=== PATIENT | female | born 1945 | race Caucasian/White ===

== ENCOUNTER → 2017-06-05 | Outpatient (CLI) | payer MEDICARE ==
[2017-06-05 16:19] LABS: Basophils # (A) 0.1 k/uL (0-0.2); Basophils % (A) 1 %; CH 31.4; CHCM 32.3; Eosinophils # (A) 0.1 k/uL (0-0.7); Eosinophils % (A) 1 %; HCT 51.5 % (34.0-46.0); HDW 2.32; HGB 16.9 gm/dL (11.4-16.0); Luc # (Auto) 0.23; Luc % (Auto) 2; Lymphocytes # (A) 3.1 k/uL (1.0-4.8); Lymphocytes % (A) 27 %; MCH 32.1 pg (25.0-35.0); MCHC 32.8 g/dL (31.0-37.0); MCV 97.9 fL (80.0-100.0); Mean Platelet Volume 7.7; Monocytes # (A) 0.6 k/uL (0-1.0); Monocytes % (A) 5 %; Neutrophils # (A) 7.5 k/uL (1.3-7.7); Neutrophils % (A) 65 %; RBC 5.26 m/uL (3.80-5.40); WBC 11.5 k/uL (3.8-10.6); WBC (Perox) 11.29
[2017-06-05 16:23] LABS: Calcium 10.3 mg/dL (8.4-10.2); Partial Thromboplastin Time 25.1 sec (22.0-30.0); Potassium 4.5 mmol/L (3.5-5.1); Prothrombin Time 10.5 sec (9.0-12.0)
== END | disposition home or self-care (01) ==
LOC: LABPAT 15:16
PROVIDERS: ATTEND Internal Medicine
DX: Z01.812 Encounter for preprocedural laboratory examination (principal)
CPT/HCPCS: 36415; 80048; 85025; 85610; 85730; 87070; 87086

== ENCOUNTER 2017-06-16 12:30 | Inpatient (IN) | payer MEDICARE ==
[2017-06-06 10:57] VITALS: BMI 49.4
--- NOTE | 2017-06-15 12:09 | HP ---
HISTORY AND PHYSICAL Surgery is 06/16/2017 Kat Pritchard is a 71-year-old patient seen with progressive right knee pain. After treatment options were discussed with her, she elected to proceed with right total knee arthroplasty. Consent was obtained. Medical clearance was provided by Dr. Frias. PAST MEDICAL HISTORY: Is gastroesophageal reflux disease. Osteoarthritis. PAST SURGICAL HISTORY: Is noncontributory. MEDICATIONS: Daily medications are: 1. Ibuprofen. 2. Losartan. 3. Prilosec. 4. Vitamins. ALLERGIES: None reported. SOCIAL HISTORY: Patient denies tobacco use. PHYSICAL EVALUATION: Right knee range of motion is -6/7 to 90 degrees. Tenderness is noted along the medial and lateral joint lines. There is positive medial and lateral Ronny's. There is crepitus medial patellofemoral and lateral compartments. Range of motion. Her ligaments are stable. Hip rotation is without pain. Distal neurovascular exam is intact. RADIOGRAPHS: Of the right knee reveals severe tricompartmental osteoarthritis. IMPRESSION: Right knee osteoarthritis. PLAN: Right total knee arthroplasty. Surgery is 06/16/2017. MMODL / IJN: [id number] /
[~2017-06-16 12:30] MED LIST: ACETAMINOPHEN TAB 500 MG TAB PO ONE; HYDROmorphone 0.5 MG/0.5 ML SYRINGE IVP PRN; LACTATED RINGERS 1,000 ML IV SCH; LIDOCAINE 1% 20 ML VIAL (10MG/ML) FOR IV START INTRADERMA PRN; MELOXICAM 7.5 MG TAB PO ONE; ONDANSETRON 4 MG/2 ML VIAL IVP ONE; TRANEXAMIC ACID 1,000 MG in SODIUM CHLORIDE 0.9% 100 ML IVPB ONE; ceFAZolin 3 GM in SODIUM CHLORIDE 0.9% 100 ML IVPB ONE; fentaNYL (PF) 50 MCG/ML 20 ML VIAL IVP PRN
[2017-06-16] MEDS: MIDAZOLAM 2 MG/2 ML VIAL IV PRN ×2 (14:08→14:38)
[2017-06-16] MEDS: fentaNYL (PF) 50 MCG/ML 2 ML AMP IV ONE ×2 (15:54→16:12)
[2017-06-16] MEDS ORDERED: ROPIVACAINE 246.25 MG, EPINEPHrine 0.5 MG, KETOROLAC 30 MG, cloNIDine HCL/PF 80 MCG, WA... MISCELLANE ONE ×5 (16:05)
[2017-06-16] MEDS ORDERED: GENTAMICIN IN NACL ISO-OSM PMX 80 MG in SALINE 1 100ML.BAG IVPB STA (16:06)
[2017-06-16] MEDS ORDERED: ePHEDrine SULFATE/0.9% NACL/PF 50 MG/5 ML SYRINGE IV ONE (16:32)
[2017-06-16] MEDS ORDERED: HYDROmorphone (PF) 1 MG/ML ONE (16:32)
[2017-06-16] MEDS ORDERED: GLYCOPYRROLATE 0.2 MG/ML 2 ML VIAL ONE (16:32)
[2017-06-16] MEDS ORDERED: PHENYLEPHRINE-0.9% NACL SYG 1 MG/10 ML SYRINGE ONE (16:32)
[2017-06-16] MEDS ORDERED: SODIUM CHLORIDE 0.9% 100 ML BAG ONE (16:32)
[2017-06-16] MEDS ORDERED: SUCCINYLCHOLINE CHLORIDE 100 MG/5 ML SYR IV ONE (16:32)
[2017-06-16] MEDS ORDERED: MIDAZOLAM 2 MG/2 ML VIAL ONE (16:32)
[2017-06-16] MEDS ORDERED: NEOSTIGMINE 1 MG/ML 10 ML VIAL ONE (16:32)
[2017-06-16] MEDS ORDERED: fentaNYL (PF) 50 MCG/ML 2 ML AMP ONE (16:32)
[2017-06-16] MEDS ORDERED: ROCURONIUM BROMIDE 10 MG/ML 10 ML VIAL IV ONE (16:32)
[2017-06-16] MEDS ORDERED: TRANEXAMIC ACID 1,000 MG/10 ML VIAL ONE (16:32)
[2017-06-16] MEDS ORDERED: LIDOCAINE 1% INJ 10MG/ML (20 ML MDV) ONE (16:32)
[2017-06-16] MEDS ORDERED: PROPOFOL 10 MG/ML 20 ML VIAL IV ONE (16:32)
[2017-06-16] MEDS ORDERED: ROPIVACAINE 1,100 MG, SODIUM CHLORIDE 0.9% 330 ML MISCELLANE PRN ×2 (17:04)
--- NOTE | 2017-06-16 17:05 | P.ONQ ---
Anesthesiology Proc Note - PNB - Peripheral Nerve Block Performed Right Adductor Canal Indication: Acute Post-Operative Pain, Requested by physician (Dr Ozuna) Sedation Type: Sedate with meaningful contact maintained Preparation: Sterile Dressing Position: Supine Catheter: Indwelling Needle Types: Other (see comment) (reji) Needle Size: 100mm (4") Needle Gauge: 18 Technique: Ultrasound Injectate: 0.5% Ropivacaine (see comment for volume) (20cc) Blood Aspirated: No Pain Paresthesia on Injection Noted: No Resistance on Injection: Normal Events: Uneventful and Well Tolerated
[2017-06-16] MEDS ORDERED: ceFAZolin 3,000 MG in SODIUM CHLORIDE 0.9% IRRIGATIO 3,000 ML IRRIGATION ONE (17:07)
[2017-06-16] MEDS ORDERED: LACTATED RINGERS 1,000 ML IV ONE (17:48)
[2017-06-16] MEDS ORDERED: HYDROcodone/APAP 7.5-325MG 1 EACH TAB PO PRN (18:43)
[2017-06-16] MEDS ORDERED: hydrOXYzine PAMOATE 25 MG CAP PO PRN (18:43)
[2017-06-16] MEDS ORDERED: NALOXONE 0.4 MG/ML 1 ML VIAL IV PRN (18:43)
[2017-06-16] MEDS ORDERED: HYDROmorphone 0.5 MG/0.5 ML SYRINGE IVP PRN ×3 (18:43)
[2017-06-16] MEDS ORDERED: ONDANSETRON 4 MG/2 ML VIAL IVP PRN (18:43)
--- NOTE | 2017-06-16 18:43 | P.OP ---
Date of Procedure: 06/16/17 Preoperative Diagnosis: Right knee osteoarthritis Postoperative Diagnosis: Right knee osteoarthritis Procedure(s) Performed: Right total knee arthroplasty Implants: 1. Zoe persona size 11 right cemented cruciate retaining femur 2. Zoe persona size E right cemented tibia 3. Zoe persona 10 mm medial congruent polyethylene tibial insert 4. Zoe persona 35 mm all polyethylene cemented patella Anesthesia: regional (Adductor canal catheter), local, spinal Surgeon: Theo Ozuna Aging Room Hand #1: Isaias Davila Estimated Blood Loss (ml): 100 Pathology: other (Bone) Condition: stable Disposition: PACU Indications for Procedure: 71-year-old patient seen with symptomatic right knee osteoarthritis. After treatment options were discussed, she elected to proceed with total knee arthroplasty. Operative Findings: See description of procedure Description of Procedure: Patient was taken to the operative suite after having a adductor canal catheter placed by the department of anesthesia. Patient underwent a spinal anesthetic by the department of anesthesia. Patient was given preoperative IV intake antibiotics and TXA. A well-padded tourniquet was placed about the [] lower extremity. The lower extremity was then prepped and draped in the normal sterile orthopedic fashion. The extremity was elevated, a tourniquet was insufflated to 350. A standard anterior incision was made sharply through skin. Dissection was taken down through the subcutaneous soft tissues down to the extensor mechanism. A medial arthrotomy was performed, patella was everted and knee was flexed. There was advanced osteoarthritis noted. A proximal tibial cutting guide was positioned. Proximal tibial cut was made. A distal intramedullary femoral cutting guide was positioned, distal femoral cut made. We placed the appropriate sizing guide and selected the appropriate size. A distal 4-in-1 femoral cutting block was positioned, distal femoral cuts were made. We now placed a trial femoral component into position, along with an appropriate size tibial tray and insert. We now took the knee through range of motion and had full extension good flexion and good overall soft tissue balance noted. The patella was everted and a flush cut made with patellar quad tendon. We templated the patella, appropriate drill holes were made. An appropriate trial patella was positioned, knee was taken through full range of motion with the patella tracking very nicely. The trial patella was removed. Drill holes were made through the femoral component. All trial components were removed after marking off the appropriate rotation of the tibia. Retractors were now positioned along the proximal tibia. An appropriate keel punch was made with the appropriate size tibial guide. At this point appropriate size implants were chosen and opened. The joint was irrigated copiously with pulse lavage mechanical irrigation. The deep soft tissues were infiltrated local analgesic. We mixed antibiotic methylmethacrylate. Once the methyl methacrylate was ready, the tibial component was cemented into place removing any excess methylmethacrylate. The femoral component was cemented into place removing the removing any excess methylmethacrylate. We then inserted the appropriate size polyethylene tibial insert. We made sure that it was locked into position. We took the knee into full extension, and then back in a flexion making sure we had removed any excess methylmethacrylate. The patellar component was then cemented down and secured with clamp. Excess methylmethacrylate removed. We kept the knee in full extension, patellar clamp in position until methylmethacrylate had hardened. Once it had hardened the patellar clamp was removed. The knee was taken through full range of motion. The patella tracked nicely. There was good soft tissue balancing. The tourniquet was now released. Additional hemostasis was achieved via electrocautery. A second gram of TXA was given. The wound was irrigated with pulse lavage mechanical irrigation. The extensor mechanism was repaired with Vicryl. We checked the repair with range of motion and it was stable. The subcutaneous soft tissues were repaired with Vicryl in layers. The skin was approximated with pernio/ Dermabond. Sterile dressings were applied followed by loose web roll and Boni bandage. The patient was transferred to a bed, and taken to recovery in stable and satisfactory condition. Samson WILLARD assisted with the procedure.
[2017-06-16] MEDS ORDERED: PROMETHAZINE INJ 25 MG/ML 1 ML VIAL IVPB ONE (19:01)
--- NOTE | 2017-06-16 19:41 | XR ---
PROCEDURE: XR knee limited RT DATE AND TIME: 06/16/2017 7:13 PM REFERRING PHYSICIAN: Theo Ozuna DO CLINICAL INDICATION: PHH, Evaluation for Postop abnormality and alignment TECHNIQUE: Department protocol. AP and crosstable lateral portable views. COMPARISON: None FINDINGS: TKR appears anatomic in position. Postprocedure soft tissue swelling noted. No unexpected r adiopaque foreign bodies. IMPRESSION: NO ACUTE PROCESS.
[2017-06-16] MEDS: LACTATED RINGERS 1,000 ML IV SCH (20:59)
[2017-06-16] MEDS: traMADol 50 MG TAB PO SCH (21:25)
[2017-06-16] MEDS: ENOXAPARIN 30 MG/0.3 ML SYRINGE SQ SCH (21:25)
[2017-06-16] MEDS: SENNOSIDES-DOCUSATE SODIUM 1 EACH TAB PO SCH (21:27)
[2017-06-16] MEDS: SULFAMETHOX-TMP 800-160MG 1 EACH TAB PO SCH (21:28)
[2017-06-16] MEDS: LOSARTAN-HCTZ 50-12.5 MG 1 EACH TAB PO SCH (22:23)
[2017-06-17] MEDS: ceFAZolin 3 GM in SODIUM CHLORIDE 0.9% 100 ML IVPB SCH ×2 (00:12→07:55)
[2017-06-17] MEDS: LACTATED RINGERS 1,000 ML IV SCH ×2 (06:16→14:11)
[2017-06-17] MEDS: HYDROcodone/APAP 7.5-325MG 1 EACH TAB PO PRN ×2 (06:16→16:11)
[2017-06-17] MEDS: PANTOPRAZOLE 40 MG TABLET PO SCH (06:17)
--- NOTE | 2017-06-17 06:24 | CONS ---
CONSULTATION DATE OF CONSULTATION: 06/16/17 REASON FOR CONSULTATION: Medical management requested by Dr. Ozuna. CONSULTATION: This is a pleasant 71-year-old patient of Dr. Frias. He has undergone a right total knee arthroplasty. Chronic stable medical conditions include GERD, hyperlipidemia, hypertension, osteoarthritis, sleep apnea, anxiety and depression. Denies any chest pain. No cardiac history. Did tolerate some liquid diet in the evening. REVIEW OF SYSTEMS: CONSTITUTIONAL: None. HEENT: Decreased hearing. RESPIRATORY: None. CARDIOVASCULAR: None. GASTROINTESTINAL: Heartburn. GENITOURINARY: None. MUSCULOSKELETAL: Pain in different joints. DERMATOLOGICAL: None. HEMATOLOGIC: None. LYMPHATIC: None. PSYCHIATRY: Anxiety and depression controlled. NEUROLOGICAL: None. PAST HISTORY: GERD, hard of hearing, hyperlipidemia, hypertension, osteoarthritis, obstructive sleep apnea, psoriasis, anxiety and depression. PAST SURGICAL HISTORY: Back surgery, tubal ligation, ORIF of the right arm, spinal fusion. SOCIAL HISTORY: No smoking. Alcohol occasional. Lives with a mother. FAMILY HISTORY: Cancer type unknown. HOME MEDICATIONS: Women's 50+ 1 tab p.o. daily, Hyzaar 50/12.5 one tablet p.o. daily, Aleve 440 mg p.o. b.i.d. p.r.n., Effexor XR 150 mg p.o. daily, omeprazole 20 mg p.o. daily. ALLERGIES: None. PHYSICAL EXAMINATION: Temperature 97.6, pulse 110, respiration 16, blood pressure 176/84, pulse ox 94% on room air. GENERAL APPEARANCE: Well built, BMI of 49.4, lying in bed, comfortable. EYES: Pupils equal. Conjunctivae normal. HEENT: Oral cavity normal. NECK: JVD unable to assess. Mass not palpable. RESPIRATORY: Effort normal, slightly distant breath sounds. CARDIOVASCULAR: Heart sounds muffled. No edema. ABDOMEN: Soft, nontender. Liver and spleen not palpable. LYMPHATIC: No lymph node palpable in neck or axillae. PSYCHIATRY: Alert and oriented x3. Mood and affect normal. EXTREMITIES: Right knee in a dressing. INVESTIGATIONS: Blood work from 06/05/17 shows white count 11.5, hemoglobin 16.9, potassium 4.5, BUN 20, creatinine 1.10. ASSESSMENT: 1. Right total knee arthroplasty. 2. Morbid obesity. BMI 49.4. 3. Gastroesophageal reflux disease. 4. Mild hard of hearing. 5. Hyperlipidemia. 6. Essential hypertension. 7. Primary osteoarthritis. 8. Obstructive sleep apnea. Uses CPAP machine. 9. Anxiety, depression, not otherwise specified. 10.Chronic psoriasis. PLAN: Home medications will be resumed. The patient is on Lovenox for DVT prophylaxis. Care was discussed with the patient. Questions were answered. The patient use should see a dietitian for weight loss measures. Thank you, Dr. Ozuna. ALY / PRINCE: [id number] /
[2017-06-17] MEDS: LOSARTAN-HCTZ 50-12.5 MG 1 EACH TAB PO SCH (07:59)
[2017-06-17] MEDS: traMADol 50 MG TAB PO SCH ×4 (07:59→22:51)
[2017-06-17] MEDS: FAMOTIDINE 20 MG TAB PO SCH (07:59)
[2017-06-17] MEDS: ENOXAPARIN 30 MG/0.3 ML SYRINGE SQ SCH ×2 (07:59→21:23)
[2017-06-17 08:00] LABS: Basophils % (A) 0 %; CH 31.4; CHCM 32.7; Eosinophils % (A) 0 %; HCT 41.1 % (34.0-46.0); HDW 2.34; Luc # (Auto) 0.16; Luc % (Auto) 2; Lymphocytes # (A) 1.7 k/uL (1.0-4.8); Lymphocytes % (A) 16 %; MCH 31.4 pg (25.0-35.0); MCHC 32.5 g/dL (31.0-37.0); MCV 96.5 fL (80.0-100.0); Mean Platelet Volume 7.4; Monocytes # (A) 0.6 k/uL (0-1.0); Monocytes % (A) 5 %; Neutrophils # (A) 8.4 k/uL (1.3-7.7); Neutrophils % (A) 77 %; RBC 4.25 m/uL (3.80-5.40); RDW 12.8 % (11.5-15.5); WBC 10.9 k/uL (3.8-10.6); WBC (Perox) 10.97
[2017-06-17] MEDS: VENLAFAXINE HCL ER 150 MG CAP PO SCH (08:00)
[2017-06-17] MEDS: MELOXICAM 7.5 MG TAB PO SCH (08:00)
[2017-06-17] MEDS: SULFAMETHOX-TMP 800-160MG 1 EACH TAB PO SCH ×2 (08:00→21:23)
[2017-06-17 08:04] LABS: Anion Gap 11 mmol/L; Blood Urea Nitrogen 22 mg/dL (7-17); Calcium 8.6 mg/dL (8.4-10.2); Carbon Dioxide 22 mmol/L (22-30); Chloride 102 mmol/L (98-107); Glucose 113 mg/dL (74-99); Non-African American GFR(MDRD) >60 (>60 ml/min/1.73 sqM); Potassium 4.3 mmol/L (3.5-5.1); Sodium 135 mmol/L (137-145)
--- NOTE | 2017-06-17 08:05 | P.PN ---
Progress Note - Text The patient is status post right adductor canal catheter placement. The catheter was placed for postoperative pain control, status post total right arthroplasty. Ropivacaine 0.2% is infusing at 8 mLs per hour. The patient has no complaints of right lower extremity numbness or weakness. Patient's VAS score is2-10. Assessment: Patient's adductor canal catheter is in place and working appropriately. Plan: continue infusion and adjust it as needed.
[2017-06-17 08:09] LABS: HGB 13.3 gm/dL (11.4-16.0)
[2017-06-17] MEDS ORDERED: LOSARTAN-HCTZ 50-12.5 MG 1 EACH TAB PO SCH (09:00)
--- NOTE | 2017-06-17 11:21 | PN ---
PROGRESS NOTE DATE OF SERVICE: 06/17/2017 PRESENTING COMPLAINT: Right knee surgery. INTERVAL HISTORY: Patient is status post right knee surgery, doing fine. No chest pain or shortness of breath. Did tolerate her breakfast. Has been out of bed. REVIEW OF SYSTEMS: Done for constitutional, cardiovascular, GI, pulmonary, musculoskeletal; relevant findings as above. CURRENT MEDICATIONS: Reviewed. EXAMINATION: Temperature 98.3 pulse 83, respirations 14, blood pressure 111/66, pulse ox 95% on room air. GENERAL APPEARANCE: Lying in bed, comfortable. EYES: Pupils equal. Conjunctivae normal. NECK: JVD not raised. Mass not palpable. RESPIRATORY: Effort normal. Lungs are clear. CARDIOVASCULAR: 1st and 2nd sounds normal. CARDIOVASCULAR: Heart sounds are muffled. No edema. ABDOMEN: Soft, nontender. Liver and spleen not palpable. EXTREMITIES: Dressing over the right knee. INVESTIGATIONS: White count 10.9, hemoglobin 13.3. Potassium 4.3. ASSESSMENT: 1. Right total knee arthroplasty. 2. Morbid obesity. Body mass index of 49.4. 3. Gastroesophageal reflux disease. 4. Mild hard of hearing. 5. Hyperlipidemia. 6. Essential hypertension. 7. Primary osteoarthritis. 8. Obstructive sleep apnea. Uses a continuous positive airway pressure machine. 9. Anxiety and depression, not otherwise specified. 10.Chronic psoriasis. PLAN: Patient doing well. Slight leukocytosis; clinically, no evidence of infection. Incision is healing well per Orthopedics. Care was discussed with the patient. Questions were answered. Thank you, Dr. Ozuna. ALY / VERONICAN: [id number] /
--- NOTE | 2017-06-17 13:53 | P.PN ---
Subjective Progress Note Date: 06/17/17 Principal diagnosis: Status post right total knee arthroplasty Patient seen today resting in her hospital bed, she appears comfortable. She is done well with therapy, urinary catheters been discontinued. She denies any headaches, lightheadedness, chest pain, shortness of breath, fever chills. Objective - Vital Signs Vital signs: Vital Signs Temp 98.3 F 06/17/17 06:59 Pulse 83 06/17/17 06:59 Resp 16 06/17/17 12:24 BP 111/66 06/17/17 06:59 Pulse Ox 95 06/17/17 06:59 Intake & Output 06/16/17 06/17/17 06/17/17 18:59 06:59 18:59 Intake Total 1601 1450 Output Total 250 550 Balance 1351 900 Weight 122.47 kg 122.47 kg Intake: IV 1601 150 Intake, IV Titration 900 Amount Lactated Ringers 1,000 ml 900 @ 100 mls/hr IV .Q10H [facility] Rx#:[id number] Oral 400 Output: Urine 150 550 Estimated Blood Loss 100 Other: Voiding Method Indwelling Catheter - Exam Right lower extremity: The incision is clean, dry, and intact. Minimal soft tissue swelling present around the knee. Calf is soft, no tenderness with palpation. Plantar flexion, dorsiflexion, EHL, FHL are intact. Sensory exam to light touch throughout the extremity is intact. Dorsal pedis pulses 2+. - Labs CBC & Chem 7: 06/17/17 07:13 06/17/17 07:13 Labs: Abnormal Lab Results - Last 24 Hours (Table) 06/17/17 06/17/17 Range/Units 07:13 07:13 WBC 10.9 H (3.8-10.6) k/uL Neutrophils # 8.4 H (1.3-7.7) k/uL Sodium 135 L (137-145) mmol/L BUN 22 H (7-17) mg/dL Glucose 113 H (74-99) mg/dL Assessment and Plan Plan: Assessment: #1. Postop day #1 status post right total knee arthroplasty Plan: 1. Pain control, continue use of oral medication 2. Continue work with physical therapy 3. Daily dressing changes/ice and elevate 4. GI and DVT prophylaxis, continue subcu medication 5. Medical recommendations 6. Discharge planning: Patient will likely be discharged home tomorrow Time with Patient: Less than 30
[2017-06-17] MEDS: SENNOSIDES-DOCUSATE SODIUM 1 EACH TAB PO SCH (21:23)
[2017-06-18] MEDS: HYDROcodone/APAP 7.5-325MG 1 EACH TAB PO PRN ×3 (01:17→13:26)
[2017-06-18] MEDS: LACTATED RINGERS 1,000 ML IV SCH (02:34)
[2017-06-18 07:27] LABS: Anion Gap 10 mmol/L; Blood Urea Nitrogen 15 mg/dL (7-17); Calcium 8.8 mg/dL (8.4-10.2); Carbon Dioxide 24 mmol/L (22-30); Chloride 101 mmol/L (98-107); Glucose 113 mg/dL (74-99); Non-African American GFR(MDRD) 59 (>60 ml/min/1.73 sqM); Sodium 135 mmol/L (137-145)
[2017-06-18] MEDS: ENOXAPARIN 30 MG/0.3 ML SYRINGE SQ SCH (08:24)
[2017-06-18] MEDS: MELOXICAM 7.5 MG TAB PO SCH (08:25)
[2017-06-18] MEDS: PANTOPRAZOLE 40 MG TABLET PO SCH (08:25)
[2017-06-18] MEDS: FAMOTIDINE 20 MG TAB PO SCH ×2 (08:25→09:28)
[2017-06-18] MEDS: LOSARTAN-HCTZ 50-12.5 MG 1 EACH TAB PO SCH (08:25)
[2017-06-18] MEDS: SULFAMETHOX-TMP 800-160MG 1 EACH TAB PO SCH (08:25)
[2017-06-18 08:37] VITALS: RESP 18
[2017-06-18] MEDS: VENLAFAXINE HCL ER 150 MG CAP PO SCH (09:28)
[2017-06-18] MEDS: traMADol 50 MG TAB PO SCH (09:29)
[2017-06-18] MEDS ORDERED: MAGNESIUM HYDROXIDE 2,400 MG/10 ML CUP PO PRN (09:58)
[2017-06-18 09:59] VITALS: BP 118/69; PULSE 94; TEMP 98.1
--- NOTE | 2017-06-18 11:10 | P.PN ---
Subjective Progress Note Date: 06/18/17 Principal diagnosis: Status post right total knee arthroplasty Patient seen today resting in her hospital bed, she appears comfortable. She denies any headaches, lightheadedness, chest pain, shortness of breath, fever chills. Objective - Vital Signs Vital signs: Vital Signs Temp 98.1 F 06/18/17 07:00 Pulse 65 06/18/17 08:25 Resp 18 06/18/17 08:25 BP 118/69 06/18/17 07:00 Pulse Ox 94 L 06/18/17 07:00 Intake & Output 06/17/17 06/18/17 06/18/17 18:59 06:59 18:59 Intake Total 300 2350 Output Total 500 Balance -200 2350 Weight 122.47 kg Intake: Intake, IV Titration 300 Amount Lactated Ringers 1,000 ml 200 @ 100 mls/hr IV .Q10H [facility] Rx#:[id number] ceFAZolin 3 gm In Sodium 100 Chloride 0.9% 100 ml @ 100 mls/hr IVPB Q8HR [facility] Rx#:[id number] Oral 2350 Output: Urine 500 Other: Voiding Method Toilet # Voids 3 - Exam Right lower extremity: The incision is clean, dry, and intact. Minimal soft tissue swelling present around the knee. Calf is soft, no tenderness with palpation. Plantar flexion, dorsiflexion, EHL, FHL are intact. Sensory exam to light touch throughout the extremity is intact. Dorsal pedis pulses 2+. - Labs CBC & Chem 7: 06/17/17 07:13 06/18/17 06:48 Labs: Abnormal Lab Results - Last 24 Hours (Table) 06/18/17 Range/Units 06:48 Sodium 135 L (137-145) mmol/L Glucose 113 H (74-99) mg/dL Assessment and Plan Plan: Assessment: 1. Postop day #2 status post right total knee arthroplasty Plan: 1. Pain control, continue use of oral medication 2. Continue work with physical therapy 3. Daily dressing changes/ice and elevate 4. GI and DVT prophylaxis, discharge home on aspirin 325 mg twice a day 5. Medical recommendations 6. Discharge planning: Patient will be discharged home today Time with Patient: Less than 30
--- NOTE | 2017-06-18 11:11 | P.DS ---
Providers Date of admission: 06/16/17 13:02 Expected date of discharge: 06/18/17 Attending physician: Theo Ozuna Consults: 06/16/17 18:43 Consult Physician Routine Consulting Provider: Wei Garvin Consult Reason/Comments: Medical management Do you want consulting provider notified?: Yes Primary care physician: [facility] Course: Date of admission: 06/16/2017 Date of discharge: 06/18/2017 Admission diagnosis: Status post right total knee arthroplasty Discharge diagnosis: Same Attending physician: Dr. Ozuna Surgical procedures: Right total knee arthroplasty Brief history: Patient is a 71-year-old female with a history of with progressive primary right knee osteoarthritis. At this point patient has failed conservative treatment measures and has opted to proceed with a elective right total knee arthroplasty. Hospital course: Details of patient's surgery can be found in operative report. Patient tolerated the procedure well and was subsequently transported to orthopedic floor. Patient's orthopeidc and medical care was provided daily. Patient had daily laboratory tests performed for evaluation of overall blood counts. Patient had daily physical therapy to include strengthening range of motion as well as education with walker ambulation. Patient had daily CPM usage as part of their physical therapy program. Patient was treated with Lovenox for their postoperative DVT prophylaxis during their inpatient stay. Patient was noted to have a relatively uneventful postoperative course. Patient reported satisfactory pain control with oral pain medications by postoperative day 0. Patient showed satisfactory progress with physical therapy. Patient moved steadily through the program and had no difficulty meeting the goals by postoperative day 2. Given patient's otherwise satisfactory course and having met physical therapy goals, plan is to discharge patient home on postoperative day 2. Discharge condition/disposition: Patient will be discharged home in stable condition. Discharge medications: Instructions are given on resumption of patient's normal daily medications per primary care recommendation, in addition patient will be prescribed Burt 7.5 mg/325 mg, tramadol 50 mg, aspirin 325 mg, Bactrim DS. Discharge instructions: 1. Wound care and infection precautions, keep incision dry and covered while showering, no lotions, creams, moisturizers. No soaking, tubs, pools, hottubs. Do not scrub over the incision. 2. Weight-bear as tolerated with walker / cane until follow-up. 3. Ice and elevate when necessary. Do not exceed 20 minutes per hour with ice pack. 4. Utilize compression sleeve until seen at first follow up appointment. 5. Visiting nursing care. 6. Home physical therapy including home CPM. 7. Pain meds and anticoagulants per prescription. 8. Pain medication has potential to cause constipation. Increase oral fluid and fiber intake. Contact primary care provider if you have not had a bowel movement within 48 hours after discharge 9. No anti-inflammatory medication until discussed at first post operative visit, this including Motrin, Aleve, Mobic, Diclofenac. 10. Follow up in office at 2 weeks postop with Samson Davila PA-C 11. Follow up with your primary care doctor 7-10 days after discharge. 12. Contact [facility] with any questions, . Procedures: Right total knee arthroplasty Patient Condition at Discharge: Good Plan - Discharge Summary New Discharge Prescriptions: New Aspirin 325 mg PO BID #60 tab HYDROcodone/APAP 7.5-325MG [Burt 7.5] 1 - 2 each PO Q6HR PRN #60 tab PRN Reason: Pain Sulfamethox-Tmp 800-160Mg [Bactrim DS 800-160 mg] 1 tab PO Q12HR #20 tab traMADol HCl [Ultram] 50 mg PO Q6H PRN #40 tab PRN Reason: Pain No Action Omeprazole 20 mg PO DAILY Losartan-Hctz 50-12.5 mg [Hyzaar 50-12.5] 1 tab PO DAILY Venlafaxine HCl [Effexor XR] 150 mg PO DAILY Multivit/Folic Acid/Vit K1 [One-A-Day Women's 50 Plus Tab] 1 tab PO DAILY Discharge Medication List Losartan-Hctz 50-12.5 mg [Hyzaar 50-12.5] 1 tab PO DAILY 12/05/15 [History] Omeprazole 20 mg PO DAILY 12/05/15 [History] Multivit/Folic Acid/Vit K1 [One-A-Day Women's 50 Plus Tab] 1 tab PO DAILY [History] Venlafaxine HCl [Effexor XR] 150 mg PO DAILY 06/06/17 [History] Aspirin 325 mg PO BID #60 tab 06/18/17 [Rx] HYDROcodone/APAP 7.5-325MG [Burt 7.5] 1 - 2 each PO Q6HR PRN #60 tab 06/18/17 [ Rx] Sulfamethox-Tmp 800-160Mg [Bactrim DS 800-160 mg] 1 tab PO Q12HR #20 tab [Rx] traMADol HCl [Ultram] 50 mg PO Q6H PRN #40 tab 06/18/17 [Rx] Follow up Appointment(s)/Referral(s): [facility], [NON-STAFF] - Isaias Davila PAC [PHYSICIAN ENVIRONMENTAL FIELD TEAM MEMBER] - 2 Weeks Ambulatory/Diagnostic Orders: Basic Metabolic Panel [LAB.AMB] Location: Determined By Patient Activity/Diet/Wound Care/Special Instructions: CPM set up by Dr. Ozuna office, through [facility] [phone] Orthopedic Discharge Instructions: 1. Wound care and infection precautions, keep incision dry and covered while showering, no lotions, creams, moisturizers. No soaking, pools, hot tubs. Do not scrub over incision. 2. Weight-bear as tolerated with walker / cane until follow-up. 3. Ice and elevate when necessary. Do not exceed 20 minutes per hour with ice pack. 4. Utilize compression sleeve until seen at first follow up appointment. 5. Visiting nursing care. 6. Home physical therapy including home CPM. 7. Pain meds and anticoagulants per prescription. 8. Pain medication has potential to cause constipation. Increase oral fluid and fiber intake. Contact primary care provider if you have not had a bowel movement within 48 hours after discharge. 9. No anti-inflammatory medication until discussed at first post operative visit, this including Motrin, Aleve, Mobic, Diclofenac 10. Follow up in office at 2 weeks postop with Samson Davila PA-C 11. Follow up with your primary care doctor 7-10 days after discharge. 12. Contact [facility] with any questions, . Discharge Disposition: HOME WITH HOME HEALTH SERVICES
--- NOTE | 2017-06-18 12:28 | PN ---
PROGRESS NOTE DATE OF SERVICE: 06/18/2017 PRESENTING COMPLAINT: Right knee surgery. INTERVAL HISTORY: Patient is status post right knee surgery. Some pain in the knee is present. Sitting up in a chair, comfortable, did have a breakfast. Did work with physical therapy. No new issues. REVIEW OF SYSTEMS: Done for constitutional, cardiovascular, GI, pulmonary, musculoskeletal; relevant findings as above. CURRENT MEDICATIONS: Reviewed. On Lovenox for DVT prophylaxis. PHYSICAL EXAMINATION: Temperature 98.1, pulse 94, respirations 18, blood pressure 108/69, pulse of 94% on room air. GENERAL APPEARANCE: Sitting up on a chair, comfortable. EYES: Pupils equal, conjunctivae normal. NECK: JVD not raised. Mass not palpable. Respiratory effort normal. Lungs are clear. CARDIOVASCULAR: First and second sounds normal. No edema. ABDOMEN: Soft, nontender. Liver and spleen not palpable. CARDIOVASCULAR: Heart sounds are muffled. No edema. EXTREMITIES: Dressing over the right knee. INVESTIGATIONS: Potassium 4, BUN and creatinine are normal. ASSESSMENT: 1. Right total knee arthroplasty. 2. Morbid obesity, body mass index of 49.4. 3. Gastroesophageal reflux disease. 4. Mild hard of hearing. 5. Hyperlipidemia. 6. Essential hypertension. 7. Primary osteoarthritis. 8. Obstructive sleep apnea. Uses a CPAP machine. 9. Anxiety, depression, not otherwise specified. 10.Chronic psoriasis. PLAN: Stable. Continue on current medication and treatment plan. Care was discussed with the patient. Thank you, Dr. Ozuna. MMSUSANL / VERONICAN: [id number] /
--- NOTE | 2017-06-18 13:34 | P.PN ---
Progress Note - Text 1314 anesthesia POD 2. Patient is status post right TKR under spinal anesthesia with a right adductor canal catheter placed for postoperative pain relief. With ropivacaine 0.2% running at 8 mL per hour the patient reports a VAS of 3, 5 over the anterior aspect of the operative knee. Catheter site is clean dry and the dressing is intact.
== END 2017-06-18 14:21 | disposition home health service (06) | DRG 470 ==
LOC: 2ORMAIN 13:02 → 3SUR 19:08
PROVIDERS: ADMIT Orthopaedic Surgery; ATTEND Orthopaedic Surgery
PROC: 0SRC0J9 Replacement of Right Knee Joint with Synthetic Substitute, Cemented, Open Approach (ICD-10-PCS; principal; 2017-06-16 15:35)
DX: M17.11 Unilateral primary osteoarthritis, right knee (principal); Z68.42 Body mass index [BMI] 45.0-49.9, adult; I10 Essential (primary) hypertension; E66.01 Morbid (severe) obesity due to excess calories; E78.5 Hyperlipidemia, unspecified; G47.33 Obstructive sleep apnea (adult) (pediatric); H91.90 Unspecified hearing loss, unspecified ear; K21.9 Gastro-esophageal reflux disease without esophagitis; L40.9 Psoriasis, unspecified; Z79.899 Other long term (current) drug therapy; Z98.1 Arthrodesis status; F32.9 Major depressive disorder, single episode, unspecified; F41.9 Anxiety disorder, unspecified; Z79.1 Long term (current) use of non-steroidal anti-inflammatories (NSAID)
CPT/HCPCS: 80048; 85025; 88300

== ENCOUNTER 2017-06-23 14:57 | Observation (INO) | payer MEDICARE ==
[2017-06-23] MEDS ORDERED: RX INFO: IV CONTRAST WAS GIVEN 1 EACH MISC MISCELLANE PRN (15:30)
--- NOTE | 2017-06-23 15:39 | ED ---
General Adult HPI - General Source: patient, RN notes reviewed Mode of arrival: wheelchair Limitations: no limitations <Mark Rizzo - Last Filed: 06/23/17 16:39> <Clifford Almeida - Last Filed: 06/23/17 18:09> - General Chief complaint: Arrhythmia/Palpitations Stated complaint: Dr Santos Time Seen by Provider: 06/23/17 15:21 - History of Present Illness Initial comments: Patient is a pleasant 71-year-old female presenting to the emergency department tachycardia. Patient did have right knee surgery done 1 week ago. Patient has noticed palpitations in the past few days. Patient has dyspnea only with exertion. Patient states her right knee is doing well without significant pain or swelling. (Makr Rizzo) - Related Data Home Medications Medication Instructions Recorded Confirmed Losartan-Hctz 50-12.5 mg [Hyzaar 1 tab PO DAILY 12/05/15 06/23/17 50-12.5] Omeprazole 20 mg PO DAILY 12/05/15 06/23/17 Multivit/Folic Acid/Vit K1 1 tab PO DAILY 06/06/17 06/23/17 [One-A-Day Women's 50 Plus Tab] Venlafaxine HCl [Effexor XR] 150 mg PO DAILY 06/06/17 06/23/17 HYDROcodone/APAP 7.5-325MG [[place] 1 - 2 tab PO Q6HR PRN 06/23/17 06/23/17 7.5] Previous Rx's Medication Instructions Recorded Aspirin 325 mg PO BID #60 tab 06/18/17 Sulfamethox-Tmp 800-160Mg [Bactrim 1 tab PO Q12HR #20 tab 06/18/17 DS 800-160 mg] traMADol HCl [Ultram] 50 mg PO Q6H PRN #40 tab 06/18/17 Allergies Allergy/AdvReac Type Severity Reaction Status Date / Time No Known Allergies Allergy Verified 06/23/17 16:28 Review of Systems ROS Other: All systems not noted in ROS Statement are negative. Constitutional: Denies: fever Eyes: Denies: eye pain ENT: Denies: ear pain Respiratory: Reports: dyspnea (With exertion) Cardiovascular: Reports: palpitations. Denies: chest pain Endocrine: Denies: fatigue Gastrointestinal: Denies: abdominal pain Genitourinary: Denies: dysuria Musculoskeletal: Denies: back pain Skin: Denies: rash Neurological: Denies: weakness <Mark Rizzo - Last Filed: 06/23/17 16:39> ROS Other: All systems not noted in ROS Statement are negative. <Clifford Almeida Megan - Last Filed: 06/23/17 18:09> ROS Statement: Those systems with pertinent positive or pertinent negative responses have been documented in the HPI. Past Medical History Past Medical History: GERD/Reflux, Hearing Disorder / Deafness, Hyperlipidemia, Hypertension, Osteoarthritis (OA), Skin Disorder, Sleep Apnea/CPAP/BIPAP Additional Past Medical History / Comment(s): Psoriasis. USES CPAP. VARICOSE VEINS. History of Any Multi-Drug Resistant Organisms: None Reported Past Surgical History: Back Surgery, Orthopedic Surgery, Tubal Ligation Additional Past Surgical History / Comment(s): ORIF RT Arm; PLATE REMOVED. LUH KNEE SCOPES. SPINAL FUSION., right knee replacement, fusion L1/L2 Past Anesthesia/Blood Transfusion Reactions: Family History of Problems w/ Anesthesia, Motion Sickness, Postoperative Nausea & Vomiting (PONV) Additional Past Anesthesia/Blood Transfusion Reaction / Comment(s): SISTER WAS ON VENTILATOR AFTER SURGERY, SHE ALSO HAD LUPUS. Past Psychological History: Anxiety, Depression Smoking Status: Never smoker Past Alcohol Use History: None Reported Past Drug Use History: None Reported - Past Family History Brother(s) Family Medical History: Cancer <Mark Rizzo - Last Filed: 06/23/17 16:39> General Exam Limitations: no limitations General appearance: alert, in no apparent distress Head exam: Present: atraumatic Eye exam: Present: normal appearance, PERRL ENT exam: Present: normal oropharynx Respiratory exam: Present: normal lung sounds bilaterally Cardiovascular Exam: Present: normal rhythm, tachycardia Expanded Peripheral pulses: 2+: Radial (R), Radial (L), Dorsalis Pedis (R), Dorsalis Pedis (L) GI/Abdominal exam: Present: soft. Absent: tenderness Extremities exam: Present: other (Right knee consistent with recent postsurgical changes). Absent: calf tenderness Neurological exam: Present: alert Psychiatric exam: Present: normal affect, normal mood Skin exam: Present: normal color <Mark Rizzo - Last Filed: 06/23/17 16:39> Vital Signs 06/23/17 06/23/17 15:06 16:21 Temperature 99.4 F Pulse Rate 152 H 94 Respiratory 24 18 Rate Blood Pressure 130/64 127/69 O2 Sat by Pulse 94 L 93 L Oximetry EKG Findings - EKG Comments: EKG Findings:: Sinus tachycardia 136. IL 1:30. QRS 76. QT 276. QTc 4:15. Normal axis. Normal QRS. Flattened T waves. <Mark Rizzo - Last Filed: 06/23/17 16:39> Medical Decision Making - Lab Data Result diagrams: 06/23/17 15:40 06/23/17 15:40 <Mark Rizzo - Last Filed: 06/23/17 16:39> - Lab Data Result diagrams: 06/23/17 15:40 06/23/17 15:40 <Clifford Almeida - Last Filed: 06/23/17 18:09> - Medical Decision Making Case was discussed with Dr. townsend, who will admit for Dr. Poe. (Mark Rizzo ) 71-year-old female presenting with tachycardia, palpitations and mild shortness of breath. Patient was noted to be tachycardic, EKG showed sinus tachycardia. Case was signed out pending laboratory studies and CT angiography with concern for PE given her recent knee surgery. CT angiography was obtained, this was negative for pulmonary embolus. Patient's rate normalized without intervention. Patient states she had a heart rate up into the 160s. Patient will be placed in observation for continued telemetry, cardiology evaluation. ( Clifford Almeida) - Lab Data Lab Results 06/23/17 06/23/17 06/23/17 Range/Units 15:40 15:40 15:40 WBC 7.7 (3.8-10.6) k/uL RBC 4.00 (3.80-5.40) m/uL Hgb 12.5 (11.4-16.0) gm/dL Hct 37.5 (34.0-46.0) % MCV 93.8 (80.0-100.0) fL MCH 31.2 (25.0-35.0) pg MCHC 33.2 (31.0-37.0) g/dL RDW 13.0 (11.5-15.5) % Plt Count 273 (150-450) k/uL Neutrophils % 74 % Lymphocytes % 16 % Monocytes % 5 % Eosinophils % 2 % Basophils % 1 % Neutrophils # 5.7 (1.3-7.7) k/uL Lymphocytes # 1.2 (1.0-4.8) k/uL Monocytes # 0.4 (0-1.0) k/uL Eosinophils # 0.2 (0-0.7) k/uL Basophils # 0.0 (0-0.2) k/uL PT (9.0-12.0) sec INR (<1.2) APTT (22.0-30.0) sec Sodium 133 L (137-145) mmol/L Potassium 4.3 (3.5-5.1) mmol/L Chloride 98 (98-107) mmol/L Carbon Dioxide 25 (22-30) mmol/L Anion Gap 10 mmol/L BUN 16 (7-17) mg/dL Creatinine 0.90 (0.52-1.04) mg/dL Est GFR (MDRD) Af Amer >60 (>60 ml/min/1.73 sqM) Est GFR (MDRD) Non-Af >60 (>60 ml/min/1.73 sqM) Glucose 105 H (74-99) mg/dL Calcium 9.1 (8.4-10.2) mg/dL Magnesium 2.0 (1.6-2.3) mg/dL Total Bilirubin 0.8 (0.2-1.3) mg/dL AST 38 H (14-36) U/L ALT 35 (9-52) U/L Alkaline Phosphatase 117 (38-126) U/L Total Creatine Kinase 110 (30-135) U/L CK-MB (CK-2) 1.0 (0.0-2.4) ng/mL CK-MB (CK-2) Rel Index 0.9 Troponin I <0.012 (0.000-0.034) ng/mL Total Protein 7.2 (6.3-8.2) g/dL Albumin 3.9 (3.5-5.0) g/dL TSH 2.210 (0.465-4.680) mIU/L Free T4 1.21 (0.78-2.19) ng/dL Free T3 pg/mL 3.1 (2.8-5.3) pg/ml 06/23/17 Range/Units 15:40 WBC (3.8-10.6) k/uL RBC (3.80-5.40) m/uL Hgb (11.4-16.0) gm/dL Hct (34.0-46.0) % MCV (80.0-100.0) fL MCH (25.0-35.0) pg MCHC (31.0-37.0) g/dL RDW (11.5-15.5) % Plt Count (150-450) k/uL Neutrophils % % Lymphocytes % % Monocytes % % Eosinophils % % Basophils % % Neutrophils # (1.3-7.7) k/uL Lymphocytes # (1.0-4.8) k/uL Monocytes # (0-1.0) k/uL Eosinophils # (0-0.7) k/uL Basophils # (0-0.2) k/uL PT 9.9 (9.0-12.0) sec INR 1.0 (<1.2) APTT 24.0 (22.0-30.0) sec Sodium (137-145) mmol/L Potassium (3.5-5.1) mmol/L Chloride (98-107) mmol/L Carbon Dioxide (22-30) mmol/L Anion Gap mmol/L BUN (7-17) mg/dL Creatinine (0.52-1.04) mg/dL Est GFR (MDRD) Af Amer (>60 ml/min/1.73 sqM) Est GFR (MDRD) Non-Af (>60 ml/min/1.73 sqM) Glucose (74-99) mg/dL Calcium (8.4-10.2) mg/dL Magnesium (1.6-2.3) mg/dL Total Bilirubin (0.2-1.3) mg/dL AST (14-36) U/L ALT (9-52) U/L Alkaline Phosphatase (38-126) U/L Total Creatine Kinase (30-135) U/L CK-MB (CK-2) (0.0-2.4) ng/mL CK-MB (CK-2) Rel Index Troponin I (0.000-0.034) ng/mL Total Protein (6.3-8.2) g/dL Albumin (3.5-5.0) g/dL TSH (0.465-4.680) mIU/L Free T4 (0.78-2.19) ng/dL Free T3 pg/mL (2.8-5.3) pg/ml Disposition <Mark Rizzo - Last Filed: 06/23/17 16:39> Decision to Admit Reason: Admit from EC Decision Date: 06/23/17 Decision Time: 18:09 <Clifford Almeida - Last Filed: 06/23/17 18:09> Clinical Impression: Sinus tachycardia Disposition: ADMITTED IP TO THIS HOSP Condition: Stable Referrals: Doni Frias MD [Primary Care Provider] - 1-2 days
[2017-06-23 16:05] LABS: Basophils % (A) 1 %; CH 31.4; CHCM 33.7; Eosinophils # (A) 0.2 k/uL (0-0.7); Eosinophils % (A) 2 %; HCT 37.5 % (34.0-46.0); HDW 2.49; HGB 12.5 gm/dL (11.4-16.0); Luc # (Auto) 0.18; Luc % (Auto) 2; Lymphocytes # (A) 1.2 k/uL (1.0-4.8); Lymphocytes % (A) 16 %; MCH 31.2 pg (25.0-35.0); MCHC 33.2 g/dL (31.0-37.0); MCV 93.8 fL (80.0-100.0); Mean Platelet Volume 7.4; Monocytes # (A) 0.4 k/uL (0-1.0); Monocytes % (A) 5 %; Neutrophils # (A) 5.7 k/uL (1.3-7.7); Neutrophils % (A) 74 %; WBC 7.7 k/uL (3.8-10.6); WBC (Perox) 7.69
[2017-06-23 16:09] LABS: Prothrombin Time 9.9 sec (9.0-12.0)
[2017-06-23 16:13] LABS: ALT 35 U/L (9-52); AST 38 U/L (14-36); Alkaline Phosphatase 117 U/L (38-126); Anion Gap 10 mmol/L; Blood Urea Nitrogen 16 mg/dL (7-17); Calcium 9.1 mg/dL (8.4-10.2); Carbon Dioxide 25 mmol/L (22-30); Chloride 98 mmol/L (98-107); Glucose 105 mg/dL (74-99); Non-African American GFR(MDRD) >60 (>60 ml/min/1.73 sqM); Potassium 4.3 mmol/L (3.5-5.1); Sodium 133 mmol/L (137-145); Total Bilirubin 0.8 mg/dL (0.2-1.3); Total Protein 7.2 g/dL (6.3-8.2)
[2017-06-23 16:19] LABS: Creatine Kinase 110 U/L (30-135)
[2017-06-23 16:32] LABS: Troponin I <0.012 ng/mL (0.000-0.034)
--- NOTE | 2017-06-23 17:37 | CT ---
EXAMINATION TYPE: CT angio chest DATE OF EXAM: 06/23/2017 5:11 PM COMPARISON: NONE HISTORY: SOB post op knee sx x1 week ago. CT DLP: 555 mGycm Automated exposure control for dose reduction was used. CONTRAST: CTA scan of the thorax is performed with IV Contrast, patient injected with 70 mL of Omnipaque 350, p ulmonary embolism protocol. There are 3-D post processed images.. FINDINGS: There is mild ectasia of the ascending aorta that measures up to 3.8 cm. There is no sign of dissecti on. There is no pericardial effusion. There are enlarged mediastinal and bronchial lymph nodes that m easure up to 1.5 cm. I see no filling defects in the pulmonary arteries. There is coarsening of interstitial pulmonary markings at the lung bases. There is no evidence of a p ulmonary mass. There is no pulmonary consolidation. There is no pleural effusion. There are spondylot ic changes in the thoracic spine. Heart is enlarged. IMPRESSION: NO EVIDENCE OF PULMONARY EMBOLISM. INTERSTITIAL FIBROTIC CHANGES AT THE LUNG BASES. MILD MEDIASTINAL ENDOBRONCHIAL ADENOPATHY. CARDIOMEG HARPREET. LARGE CYST NOTED ON THE UPPER POLE OF THE LEFT KIDNEY.
[2017-06-23] MEDS ORDERED: NALOXONE 0.4 MG/ML 1 ML VIAL IV PRN (18:03)
[2017-06-23] MEDS ORDERED: MORPHINE SULFATE 10 MG/ML SYRINGE IV PRN (18:03)
[2017-06-23] MEDS ORDERED: ACETAMINOPHEN TAB 325 MG TAB PO PRN (18:03)
[2017-06-23 18:27] LABS: Appearance,Urine Clear (Clear); Bilirubin,Urine Negative (Negative); Glucose,Urine (UA) Negative (Negative); Ketones,Urine Negative (Negative); Leukocyte Esterase,Urine Moderate (Negative); Mucus,Urine Rare /hpf; Nitrite,Urine Negative (Negative); Particle Count 2433; Protein,Urine Trace (Negative); RBC,Urine 6 /hpf (0-5); Squamous Epithelial Cell,Urine 27 /hpf (0-4); UA Billing (MACRO vs. MICRO) MICRO; Urobilinogen,Urine <2.0 mg/dL (<2.0); WBC,Urine 16 /hpf (0-5)
[2017-06-23 18:28] LABS: Specific Gravity,Urine >1.050 (1.001-1.035)
[2017-06-23 20:27] VITALS: BMI 49.0
[2017-06-23] MEDS: ASPIRIN 325 MG TAB PO SCH (20:31)
[2017-06-23] MEDS: SODIUM CHLORIDE 0.9% 1,000 ML IV SCH (20:31)
[2017-06-23 23:29] LABS: Creatine Kinase 97 U/L (30-135)
[2017-06-23 23:42] LABS: Creatine Kinase MB 1.3 ng/mL (0.0-2.4); Troponin I <0.012 ng/mL (0.000-0.034)
[2017-06-24 04:46] LABS: Basophils % (A) 0 %; CH 32.7; CHCM 33.7; Eosinophils # (A) 0.2 k/uL (0-0.7); Eosinophils % (A) 4 %; HCT 35.9 % (34.0-46.0); HDW 2.46; HGB 11.4 gm/dL (11.4-16.0); Luc # (Auto) 0.16; Luc % (Auto) 3; Lymphocytes # (A) 1.2 k/uL (1.0-4.8); Lymphocytes % (A) 19 %; MCH 31.1 pg (25.0-35.0); MCHC 31.9 g/dL (31.0-37.0); MCV 97.8 fL (80.0-100.0); Monocytes # (A) 0.4 k/uL (0-1.0); Monocytes % (A) 6 %; Neutrophils # (A) 4.2 k/uL (1.3-7.7); Neutrophils % (A) 68 %; RBC 3.67 m/uL (3.80-5.40); RDW 13.7 % (11.5-15.5); WBC 6.2 k/uL (3.8-10.6)
[2017-06-24 04:49] LABS: ALT 36 U/L (9-52); AST 32 U/L (14-36); Alkaline Phosphatase 100 U/L (38-126); Anion Gap 11 mmol/L; Blood Urea Nitrogen 15 mg/dL (7-17); Calcium 8.9 mg/dL (8.4-10.2); Carbon Dioxide 25 mmol/L (22-30); Chloride 97 mmol/L (98-107); Glucose 113 mg/dL (74-99); Non-African American GFR(MDRD) >60 (>60 ml/min/1.73 sqM); Sodium 133 mmol/L (137-145); Total Bilirubin 0.6 mg/dL (0.2-1.3); Total Protein 6.4 g/dL (6.3-8.2)
[2017-06-24 05:00] LABS: Creatine Kinase 96 U/L (30-135)
[2017-06-24] MEDS: SODIUM CHLORIDE 0.9% 1,000 ML IV SCH ×2 (05:04→18:57)
[2017-06-24 05:13] LABS: Creatine Kinase MB 1.3 ng/mL (0.0-2.4); Troponin I <0.012 ng/mL (0.000-0.034)
[2017-06-24] MEDS ORDERED: LOSARTAN-HCTZ 50-12.5 MG 1 EACH TAB PO SCH (09:00)
[2017-06-24] MEDS ORDERED: METOPROLOL TARTRATE 12.5 MG TAB PO SCH (10:00)
[2017-06-24] MEDS: ASPIRIN 325 MG TAB PO SCH (11:01)
--- NOTE | 2017-06-24 12:21 | ECHOF ---
Referral Reason:palpitations and chest pain MEASUREMENTS -------- HEIGHT: 160.0 cm WEIGHT: 125.2 kg BP: 139/63 IVSd: 1.2 cm (0.6 - 1.1) LVIDd: 4.9 cm (3.9 - 5.3) LVPWd: 1.3 cm (0.6 - 1.1) IVSs: 1.4 cm LVIDs: 4.0 cm LVPWs: 1.5 cm Ao Diam: 3.4 cm (2.0 - 3.7) AV Cusp: 1.5 cm (1.5 - 2.6) LA Diam: 4.2 cm (2.7 - 3.8) MV EXCURSION: 15.119 mm (> 18.000) MV EF SLOPE: 74 mm/s (70 - 150) EPSS: 0.6 cm MV E Greg: 0.68 m/s MV DecT: 297 ms MV A Greg: 0.95 m/s MV E/A Ratio: 0.71 RAP: 5.00 mmHg RVSP: 33.80 mmHg FINDINGS -------- Sinus rhythm. This was a technically difficult study with suboptimal views. PT. NOT ABLE TO TURN DUE TO KNEE SURGERY. The left ventricular size is normal. There is mild concentric left ventricular hypertrophy. Overall left ventricular systolic function is normal with, an EF between 55 - 60 %. The right ventricle is normal in size and function. The left atrial size is normal. The right atrium is normal in size. 1.5mg of Definity was utilized for enhancement of images Aortic valve is trileaflet and is mildly thickened. There is no evidence of aortic regurgitation. There is no evidence of aortic stenosis. The mitral valve leaflets are mildly thickened. There is trace mitral regurgitation. No regurgitation noted Right ventricular systolic pressure is normal at < 35 mmHg. There is no evidence of pulmonary hypertension. The pulmonic valve was not well visualized. The aortic root size is normal. IVC Not well visulized. The pericardium is normal. There is no pericardial effusion. CONCLUSIONS -------- 1. Sinus rhythm. 2. There is no evidence of aortic regurgitation. 3. There is no evidence of aortic stenosis. 4. The mitral valve leaflets are mildly thickened. 5. There is trace mitral regurgitation. 6. No regurgitation noted 7. Right ventricular systolic pressure is normal at < 35 mmHg. 8. There is no evidence of pulmonary hypertension. 9. The pulmonic valve was not well visualized. 10. The aortic root size is normal. 11. IVC Not well visulized. 12. This was a technically difficult study with suboptimal views. 13. There is no pericardial effusion. 14. PT. NOT ABLE TO TURN DUE TO KNEE SURGERY. 15. The left ventricular size is normal. 16. There is mild concentric left ventricular hypertrophy. 17. Overall left ventricular systolic function is normal with, an EF between 55 - 60 %. 18. The left atrial size is normal. 19. 1.5mg of Definity was utilized for enhancement of images 20. Aortic valve is trileaflet and is mildly thickened. INVESTMENT PROFESSIONAL: Bean Mcclelland RDCS
--- NOTE | 2017-06-24 12:25 | P.CRDCN ---
History of Present Illness Consult date: 06/24/17 History of present illness: This 71-year-old female patient past medical history significant for hypertension and high cholesterol. She presented to the hospital with complaints of palpitations and tachycardia. She states she was getting physical therapy and prior to starting therapy or heart rate was 127 and 1 she started exerting and exercising her heart rate went up to 150s. She states she' s had episodes like this in the past over the previous year multiple times. She was recently admitted to the hospital after having a right knee replacement. She states the entire time she was here her heart rate was greater than 115. During the patella episodes she remains asymptomatic at times and other times she feels a pressure in her chest rising from the abdomen coming up into her throat. She denies any history of coronary artery disease and has never seen a temperature inspector for any reason. She states her last stress test was many years ago and was normal. She does not smoke and never has. She is morbidly obese. EKG reveals sinus tachycardia with no acute ST or T-wave abnormalites. Repeat this morning reveals sinus rhythm with controlled rate. Lab data reviewed is unremarkable. Cardiac enzymes negative. TSH normal. Blood pressure 139/63 heart rate 89. Review of Systems CONSTITUTIONAL: Denies fever. Denies chills. EYES: Denies blurred vision. Denies vision changes. Denies eye pain. EARS, NOSE, MOUTH & THROAT: Denies headache. Denies sore throat. Denies ear pain. CARDIOVASCULAR: Complains of intermittent chest pain associated with palpitations. Denies shortness of breath. Denies orthopnea. Denies PND. Complains of palpitations ongoing for the previous year. RESPIRATORY: Denies cough. GASTROINTESTINAL: Denies abdominal pain. Denies diarrhea. Complains of constipation since taking narcotic pain medication. Denies nausea. Denies vomitng. MUSCULOSKELETAL: Denies myalgias. INTEGUMENTARY: Denies pruitis. Denies rash. NEUROLOGIC: Denies numbness. Denies tingling. Denies weakness. PSYCHIATRIC: Denies anxiety. Denies depression. ENDOCRINE: Denies fatigue. Denies weight change. Denies polydipsia. Denies polyurina. GENITOURINARY: Denies burning, hematuria or urgency with micturation. HEMATOLOGIC: Denies history of anemia. Denies bleeding. Past Medical History Past Medical History: GERD/Reflux, Hearing Disorder / Deafness, Hyperlipidemia, Hypertension, Osteoarthritis (OA), Skin Disorder, Sleep Apnea/CPAP/BIPAP Additional Past Medical History / Comment(s): Psoriasis. USES CPAP. VARICOSE VEINS. History of Any Multi-Drug Resistant Organisms: None Reported Past Surgical History: Back Surgery, Orthopedic Surgery, Tubal Ligation Additional Past Surgical History / Comment(s): ORIF RT Arm; PLATE REMOVED. LUH KNEE SCOPES. SPINAL FUSION., right knee replacement, fusion L1/L2 Past Anesthesia/Blood Transfusion Reactions: Family History of Problems w/ Anesthesia, Motion Sickness, Postoperative Nausea & Vomiting (PONV) Additional Past Anesthesia/Blood Transfusion Reaction / Comment(s): SISTER WAS ON VENTILATOR AFTER SURGERY, SHE ALSO HAD LUPUS. Smoking Status: Never smoker - Past Family History Brother(s) Family Medical History: Cancer Additional Family Medical History / Comment(s): lung CA. Other brother has back CA Mother Additional Family Medical History / Comment(s): leaky heart valve Father Additional Family Medical History / Comment(s): Artery broke Medications and Allergies Home Medications Medication Instructions Recorded Confirmed Type Losartan-Hctz 50-12.5 mg [Hyzaar 1 tab PO DAILY 12/05/15 06/23/17 History 50-12.5] Omeprazole 20 mg PO DAILY 12/05/15 06/23/17 History Multivit/Folic Acid/Vit K1 1 tab PO DAILY 06/06/17 06/23/17 History [One-A-Day Women's 50 Plus Tab] Venlafaxine HCl [Effexor XR] 150 mg PO DAILY 06/06/17 06/23/17 History Aspirin 325 mg PO BID #60 tab 06/18/17 06/23/17 Rx Sulfamethox-Tmp 800-160Mg [Bactrim 1 tab PO Q12HR #20 tab 06/18/17 06/23/17 Rx DS 800-160 mg] traMADol HCl [Ultram] 50 mg PO Q6H PRN #40 tab 06/18/17 06/23/17 Rx HYDROcodone/APAP 7.5-325MG [[place] 2 tab PO Q6HR PRN 06/23/17 06/23/17 History 7.5] Allergies Allergy/AdvReac Type Severity Reaction Status Date / Time No Known Allergies Allergy Verified 06/23/17 20:15 Physical Exam Vitals: Vital Signs Temp Pulse Pulse Resp BP BP Pulse Ox 06/24/17 08:00 98.3 F 89 139/63 96 06/24/17 04:00 97.9 F 67 18 112/47 98 06/24/17 00:00 97.9 F 115 H 18 131/61 96 06/23/17 20:00 99.3 F 84 16 141/65 94 L 06/23/17 19:10 88 20 136/64 95 06/23/17 18:17 87 16 126/58 97 06/23/17 16:21 94 18 127/69 93 L 06/23/17 15:06 99.4 F 152 H 24 130/64 94 L Intake and Output 06/23/17 06/24/17 06/24/17 22:59 06:59 14:59 Other: # Voids 1 Weight 125.5 kg GENERAL: This is a 71-year-old female in no apparent distress at the time of my examination. Morbidly obese. HEENT: Head is atraumatic, normocephalic. Pupils are equal, round. Sclerae anicteric. Conjunctivae are clear. Mucous membranes of the mouth are moist. Neck is supple. There is no jugular venous distention. No carotid bruit is heard. LUNGS: Clear to auscultation no wheezes, rales or rhonchi. No chest wall tenderness is noted on palpation or with deep breathing. HEART: Regular rate and rhythm without murmurs, rubs or gallops. S1 and S2 heard. ABDOMEN: Soft, nontender. Bowel sounds are heard. No organomegaly noted. EXTREMITIES: 2+ peripheral pulses with no evidence of peripheral edema and no calf tenderness noted. NEUROLOGIC: Patient is awake, alert and oriented x3. Results 06/24/17 03:26 06/24/17 03:26 Cardiac Enzymes 06/23/17 06/23/17 06/23/17 Range/Units 15:40 15:40 22:20 AST 38 H (14-36) U/L CK-MB (CK-2) 1.0 1.3 (0.0-2.4) ng/mL Troponin I <0.012 <0.012 (0.000-0.034) ng/mL 06/24/17 06/24/17 Range/Units 03:26 03:26 AST 32 (14-36) U/L CK-MB (CK-2) 1.3 (0.0-2.4) ng/mL Troponin I <0.012 (0.000-0.034) ng/mL Coagulation 06/23/17 Range/Units 15:40 PT 9.9 (9.0-12.0) sec APTT 24.0 (22.0-30.0) sec CBC 06/23/17 06/24/17 Range/Units 15:40 03:26 WBC 7.7 6.2 (3.8-10.6) k/uL RBC 4.00 3.67 L (3.80-5.40) m/uL Hgb 12.5 11.4 (11.4-16.0) gm/dL Hct 37.5 35.9 (34.0-46.0) % Plt Count 273 234 (150-450) k/uL Comprehensive Metabolic Panel 06/23/17 06/24/17 Range/Units 15:40 03:26 Sodium 133 L 133 L (137-145) mmol/L Potassium 4.3 4.0 (3.5-5.1) mmol/L Chloride 98 97 L (98-107) mmol/L Carbon Dioxide 25 25 (22-30) mmol/L BUN 16 15 (7-17) mg/dL Creatinine 0.90 0.80 (0.52-1.04) mg/dL Glucose 105 H 113 H (74-99) mg/dL Calcium 9.1 8.9 (8.4-10.2) mg/dL AST 38 H 32 (14-36) U/L ALT 35 36 (9-52) U/L Alkaline Phosphatase 117 100 (38-126) U/L Total Protein 7.2 6.4 (6.3-8.2) g/dL Albumin 3.9 3.4 L (3.5-5.0) g/dL Current Medications Generic Name Dose Route Start Last Admin Trade Name Freq PRN Reason Stop Dose Admin Acetaminophen 650 mg 06/23/17 18:03 Tylenol Tab PO Q6HR PRN Mild Pain or Fever > 100.5 Aspirin 325 mg 06/23/17 21:00 06/23/17 20:31 Aspirin PO 325 mg BID [place] Administration HCTZ/Losartan Potassium 1 each 06/24/17 09:00 Hyzaar 50-12.5 PO DAILY [facility] Sodium Chloride 1,000 mls @ 100 mls/hr 06/23/17 18:15 06/24/17 05:04 Saline 0.9% IV Not Given .Q10H [facility] Miscellaneous Information 1 each 06/23/17 15:30 06/23/17 17:13 Rx Info: Iv Contrast Was Given MISCELLANE 06/25/17 15:30 1 each DAILY PRN Administration Per Protocol Morphine Sulfate 4 mg 06/23/17 18:03 Morphine Sulfate (Inj) IV Q4HR PRN Severe Pain Naloxone HCl 0.2 mg 06/23/17 18:03 Narcan IV Q2M PRN Opioid Reversal Intake and Output 06/23/17 06/24/17 06/24/17 22:59 06:59 14:59 Other: # Voids 1 Weight 125.5 kg 06/24/17 03:26 06/24/17 03:26 Assessment and Plan Assessment: ASSESSMENT 1. Palpitations 2. Urinary tract infection currently being treated with Bactrim as an outpatient PLAN From a cardiac perspective we recommend adding low dose beta tommy in the form of metoprolol 12.5 mg BID and obtain 2D echocardiogram and doppler study to assess cardiac structure and function. May be related to underlying urinary tract infection and pain from recent surgery. She should follow up with Dr. Bowen in 2-4 weeks. Thank you for this consultation. Nurse Practitioner note has been reviewed, I agree with a documented findings and plan of care. Patient was seen and examined.
[2017-06-24 15:56] VITALS: BP 107/60; PULSE 85; RESP 17; TEMP 98.4
[2017-06-24] MEDS ORDERED: VENLAFAXINE HCL ER 150 MG CAP PO SCH (17:15)
[2017-06-24] MEDS ORDERED: PANTOPRAZOLE 40 MG TABLET PO SCH (17:15)
--- NOTE | 2017-06-24 19:37 | HP ---
HISTORY AND PHYSICAL DATE OF ADMISSION: 06/23/2017 DATE OF SERVICE: 06/24/2017 PRESENTING COMPLAINT: Heart racing. HISTORY OF PRESENTING COMPLAINT: This is a very pleasant 71-year-old patient who recently was in the hospital and 06/16/17 underwent a right total knee arthroplasty. The patient follows with Dr. Frias. Surgery was done by Dr. Ozuna. Chronic stable medical conditions include GERD, hyperlipidemia, hypertension, osteoarthritis, sleep apnea, anxiety, depression. The patient presents with her heart racing. No chest pain, no pressure, no dizziness. Patient says that she has had this off and on for close to a year. Denies any prior cardiac history. REVIEW OF SYSTEMS: CONSTITUTIONAL: None. HEENT: Decreased hearing. RESPIRATORY: None. CARDIOVASCULAR: As above. GASTROINTESTINAL: Heartburn. GENITOURINARY: None. MUSCULOSKELETAL: Pain in different joints. DERMATOLOGICAL: None. HEMATOLOGIC: None. LYMPHATICS: None. PSYCHIATRY: Anxiety and depression, controlled. NEUROLOGICAL: None. PAST HISTORY: GERD, hard of hearing, hyperlipidemia, hypertension, osteoarthritis, obstructive sleep apnea, psoriasis, anxiety and depression. PAST SURGICAL HISTORY: Back surgery, tubal ligation, ORIF of the right arm, spinal fusion, right total knee arthroplasty. SOCIAL HISTORY: No smoking. Alcohol occasionally. Lives with his mother. FAMILY HISTORY: Cancer, type unknown. HOME MEDICATIONS: Ultram 50 mg q.6h p.r.n., Effexor XR 150 mg p.o. daily, Bactrim DS 1 tab p.o. q.12, omeprazole 20 mg a day, one day, 1 tab p.o. daily, Hyzaar 50/12.5 one tab p.o. daily, [place] 7.5 two tablets p.o. q.6h p.r.n. aspirin 325 p.o. b.i.d. ALLERGIES: None. PHYSICAL EXAMINATION: Vital signs on presentation: Temperature 99.4, pulse 152, respiration 24, blood pressure 130/64, pulse ox 94% on room air. GENERAL APPEARANCE: Well built. BMI of 49. Lying in bed comfortable. EYES: Pupils equal. Conjunctivae normal. HEENT: Oral cavity normal. NECK: JVD not raised. Mass not palpable/ RESPIRATORY: Effort normal. Lungs are clear CARDIOVASCULAR: First and second heart sounds muffled. No edema. ABDOMEN: Soft, nontender. Liver and spleen not palpable. LYMPHATICS: No lymph node palpable in neck or axillae. PSYCHIATRY: Alert and oriented x3. Mood and affect normal. NEUROLOGICAL: Pupils equal. Cranial nerves grossly intact. Pulses grossly intact. EXTREMITIES: Right knee incision healing well. INVESTIGATIONS: White count 6.2, hemoglobin 11.4, potassium 4.0. BUN and creatinine are normal. Troponin times 3 negative. UA positive. ASSESSMENT: 1. Acute urinary tract infection. 2. Morbid obesity, body mass index greater than 49. 3. Gastroesophageal reflux disease. 4. Mild hard of hearing. 5. Hyperlipidemia. 6. Essential hypertension. 7. Primary osteoarthritis. 8. Obstructive sleep apnea, uses CPAP machine. 9. Anxiety and depression, not otherwise specified. 10.Chronic psoriasis. PLAN: Patient will be put on Bactrim for the UTI. Cardiology was consulted. The patient will need an outpatient Holter monitor. The patient's EKG shows sinus tachycardia. Care was discussed with the patient, questions were answered. ALY / PRINCE: [id number] /
--- NOTE | 2017-06-25 11:26 | DS ---
DISCHARGE SUMMARY DATE OF ADMISSION: 06/23/2017 DATE OF DISCHARGE: 06/24/2017 FINAL DIAGNOSIS: 1. Acute urinary tract infection. 2. Morbid obesity, body mass index greater than 49. 3. Gastroesophageal reflux disease. 4. Mild hard of hearing. 5. Hyperlipidemia. 6. Essential hypertension. 7. Primary osteoarthritis. 8. Obstructive sleep apnea, uses CPAP machine. 9. Anxiety, depression, not otherwise specified. 10.Chronic psoriasis. 11.Sinus tachycardia. HOSPITAL COURSE: This patient with recent knee surgery, presented with sinus tachycardia/palpitations. The patient has had these episodes before. Had a UTI that was treated. Seen by [facility]. Okay to be discharged. A 2-D echocardiogram was unremarkable. Lopressor was added. On examination, lungs are clear. CARDIOVASCULAR: First and second sounds normal. DISCHARGE MEDICATIONS: 1. Losartan hydrochlorothiazide 50/12.5 one tablet p.o. daily. 2. Omeprazole 20 mg p.o. daily. 3. One-A-Day Women 50 Plus 1 tab p.o. daily. 4. Effexor XR 150 mg p.o. daily. 5. Aspirin 325 p.o. b.i.d. for DVT prophylaxis. The patient is getting it from surgery. 6. Bactrim DS 1 tablet p.o. q.12. 7. Ultram 50 mg q.6 p.r.n. 8. Warren 7.5 two tablets q.6 p.r.n. from surgery. 9. Lopressor 12.5 p.o. b.i.d. The patient to follow up with Dr. Bowen in 3 weeks; Dr. Frias in 3 . Patient to keep orthopedic appointment. MMODL / IJN: [id number] /
== END 2017-06-24 18:41 | disposition home or self-care (01) ==
LOC: EC 14:57 → 3OBS 18:07
PROVIDERS: ADMIT Hospitalist; ATTEND Hospitalist
DX: R00.2 Palpitations (principal); N39.0 Urinary tract infection, site not specified; K21.9 Gastro-esophageal reflux disease without esophagitis; E66.01 Morbid (severe) obesity due to excess calories; H91.90 Unspecified hearing loss, unspecified ear; E78.5 Hyperlipidemia, unspecified; R00.0 Tachycardia, unspecified; I10 Essential (primary) hypertension; G47.33 Obstructive sleep apnea (adult) (pediatric); F32.9 Major depressive disorder, single episode, unspecified; F41.9 Anxiety disorder, unspecified; L40.9 Psoriasis, unspecified; M19.91 Primary osteoarthritis, unspecified site; I83.90 Asymptomatic varicose veins of unspecified lower extremity; Z68.42 Body mass index [BMI] 45.0-49.9, adult; Z79.899 Other long term (current) drug therapy; Z79.82 Long term (current) use of aspirin; Z99.89 Dependence on other enabling machines and devices; Z80.1 Family history of malignant neoplasm of trachea, bronchus and lung; Z82.49 Family history of ischemic heart disease and other diseases of the circulatory system
CPT/HCPCS: 99285; 36415; 93005; 84439; 84481; 80053 ×2; 82550 ×2; 82553 ×2; 83735; 84443; 84484 ×2; 85025 ×2; 85610; 85730; 81001; 71275; G0378 ×2; C8929; Q9967; Q9957; 93306

== ENCOUNTER → 2017-10-07 | Outpatient (CLI) | payer MEDICARE ==
[2017-10-07 15:04] LABS: Basophils # (A) 0.1 k/uL (0-0.2); Basophils % (A) 1 %; Eosinophils # (A) 0.1 k/uL (0-0.7); Eosinophils % (A) 2 %; HCT 44.5 % (34.0-46.0); HGB 14.6 gm/dL (11.4-16.0); Lymphocytes % (A) 26 %; MCH 31.1 pg (25.0-35.0); MCHC 32.8 g/dL (31.0-37.0); MCV 94.7 fL (80.0-100.0); Mean Platelet Volume 7.4; Monocytes # (A) 0.4 k/uL (0-1.0); Monocytes % (A) 6 %; Neutrophils # (A) 4.8 k/uL (1.3-7.7); Neutrophils % (A) 63 %; Platelet Count 285 k/uL (150-450); RDW 13.7 % (11.5-15.5); WBC 7.6 k/uL (3.8-10.6)
[2017-10-07 15:17] LABS: ALT 36 U/L (9-52); AST 48 U/L (14-36); Albumin 4.4 g/dL (3.5-5.0); Alkaline Phosphatase 135 U/L (38-126); Anion Gap 10 mmol/L; Blood Urea Nitrogen 22 mg/dL (7-17); Calcium 9.8 mg/dL (8.4-10.2); Carbon Dioxide 29 mmol/L (22-30); Chloride 105 mmol/L (98-107); Cholesterol 272 mg/dL (<200); Glucose 102 mg/dL (74-99); HDL Cholesterol 78 mg/dL (40-60); LDL Cholesterol,Calculated 174 mg/dL (0-99); Potassium 4.2 mmol/L (3.5-5.1); Sodium 144 mmol/L (137-145); Total Bilirubin 1.2 mg/dL (0.2-1.3); Total Protein 7.9 g/dL (6.3-8.2); Triglycerides 99 mg/dL (<150)
--- NOTE | 2017-10-08 12:04 | BD ---
EXAMINATION TYPE: MG DEXA axial skeleton. DATE OF EXAM: 10/07/2017 CLINICAL HISTORY: Postmenopausal female. Osteoporosis screening. Height: 63.5 Weight: 275 FRAX RISK QUESTIONS: Alcohol (3 or more units per day): no Family History (Parent hip fracture): yes, mother Glucocorticoids (More than 3mos): no (Ex: prednisone, prednisolone, methylprednisolone, dexamethasone, and hydrocortisone). History of Fracture in Adulthood: yes Secondary Osteoporosis: 1. Type 1 Diabetes: no 2. Hyperthyroidism: no 3. Menopause before 45: no 4. Malnutrition: no 5. Chronic liver disease: no Rheumatoid Arthritis: no Current Tobacco Use: no RISK FACTORS HISTORY OF: History of Wrist Fracture: yes When: about age 31 Surgery to Spine: yes, lumbar When: 2016 Surgery to wrist: yes about 30 years ago Family History of Osteoporosis: yes, mother Active: yes Diet low in dairy products/other sources of calcium: at least one serving a day Postmenopausal woman: yes Take estrogen and/or progesterone medications: no Lost more than 2 inches in height since high school: unsure Frequent falls: no Poor Health: yes, states patient Hyperparathyroidism: no Adrenal Insufficiency: no MEDICATIONS: Prednisone or other steroids: no Thyroid Medications: no Osteoporosis Medications: no Additional Medications: blood pressure meds Additional History: right knee replacement; has "A"-Fib; metal in lower back from 2016 back surgery EXAM MEASUREMENTS: Bone mineral densitometry was performed using the [employer] System. Bone mineral density NOT measured about the Lumbar spine because of 2016 lumbar surgery Bone mineral density about the R hip (g/cm2): 0.769 Bone mineral density about the L hip (g/cm2): 0.706 T Score values are as follows: -----R Neck: -1.9 -----L Neck: -2.4 -----R Total: -1.3 -----L Total: -1.3 Bone mineral density has: Decreased -9.7% since study of: 02/11/2006 IMPRESSION: Osteopenia (T Score between -2.5 and -1) as noted by T score values with regards to the bilateral hip s with values approaching osteoporosis in regards to the left hip. There is slightly increased risk of fracture and the patient may be considered for treatment. Re-Screen 2-5 years. NOTE: T-SCORE=SD OF THE YOUNG ADULT MEAN.
== END | disposition home or self-care (01) ==
LOC: RADBDWWP 13:34
PROVIDERS: ATTEND Internal Medicine
DX: M85.851 Other specified disorders of bone density and structure, right thigh (principal); M85.852 Other specified disorders of bone density and structure, left thigh; E66.01 Morbid (severe) obesity due to excess calories; I10 Essential (primary) hypertension
CPT/HCPCS: 36415; 77080; 80053; 80061; 84443; 85025

== ENCOUNTER → 2017-11-17 | Outpatient (CLI) | payer MEDICARE ==
--- NOTE | 2017-11-17 15:36 | US ---
EXAMINATION TYPE: US kidneys/renal and bladder DATE OF EXAM: 11/17/2017 COMPARISON: NONE CLINICAL HISTORY: N20.0 Calculus of kidney. Right lower back pain, incontinence EXAM MEASUREMENTS: Right Kidney: 10.3 x 5.2 x 4.7 cm Left Kidney: 13.0 x 6.0 x 4.1 cm *Technical limitations due to overlying bowel content Right Kidney: multiple cystic areas, largest = 2.1 x 1.9 x 1.9cm. This appears to contain a solitary thin septum. Left Kidney: multiple cystic areas, largest = 5.8 x 7.2 x 7.3cm Bladder: appears wnl as visualized, not fully distended Bilateral Jets seen: no There is no evidence for hydronephrosis at this point in time. No nephrolithiasis is seen. IMPRESSION: 1. No evidence of hydronephrosis or visualized nephrolithiasis. 2. Bilateral renal cysts, largest of which is exophytic from the left kidney measuring up to 7.3 cm.
== END | disposition home or self-care (01) ==
LOC: RADUSWWP 14:11
PROVIDERS: ATTEND Urology
DX: N28.1 Cyst of kidney, acquired (principal)
CPT/HCPCS: 76770

== ENCOUNTER → 2017-12-10 | Outpatient (CLI) | payer MEDICARE ==
[2017-12-10 19:44] LABS: T4, Free (Free Thyroxine) 1.02 ng/dL (0.78-2.19)
== END | disposition home or self-care (01) ==
LOC: LABWHC1 16:48
PROVIDERS: ATTEND Internal Medicine Interventional Cardiology
DX: E03.9 Hypothyroidism, unspecified (principal)
CPT/HCPCS: 36415; 84439; 84443

== ENCOUNTER → 2018-07-09 | Outpatient (CLI) | payer MEDICARE ==
[2018-07-09 13:21] LABS: Ionized Calcium 5.2 mg/dL (4.5-5.3)
[2018-07-09 13:58] LABS: Basophils # (A) 0.1 k/uL (0-0.2); Basophils % (A) 1 %; Eosinophils # (A) 0.1 k/uL (0-0.7); Eosinophils % (A) 1 %; HCT 51.6 % (34.0-46.0); Lymphocytes % (A) 28 %; MCH 31.5 pg (25.0-35.0); MCHC 32.9 g/dL (31.0-37.0); MCV 95.5 fL (80.0-100.0); Mean Platelet Volume 7.5; Monocytes # (A) 0.4 k/uL (0-1.0); Monocytes % (A) 5 %; Neutrophils # (A) 4.4 k/uL (1.3-7.7); Neutrophils % (A) 63 %; Platelet Count 274 k/uL (150-450); RDW 13.4 % (11.5-15.5); WBC 7.1 k/uL (3.8-10.6)
[2018-07-09 19:20] LABS: Vitamin D 25 Hydroxy 22.4 ng/mL (30.0-100.0)
[2018-07-09 19:27] LABS: Albumin 4.6 g/dL (3.80-4.90); Albumin/Globulin Ratio 1.92 (1.20-2.10); Anion Gap 8.6 mmol/L (4.00-12.00); Calcium 9.6 mg/dL (8.7-10.3); Carbon Dioxide 28.4 mmol/L (21.6-31.8); Globulin 2.4 g/dL (2.1-3.7); Potassium 4.4 mmol/L (3.5-5.5); Total Bilirubin 0.7 mg/dL (0.2-1.2)
[2018-07-09 19:45] LABS: Parathyroid Hormone Intact 85.8 pg/mL (14.0-72.0)
== END | disposition home or self-care (01) ==
LOC: LABWHC1 11:43
PROVIDERS: ATTEND Internal Medicine
DX: E83.52 Hypercalcemia (principal); I10 Essential (primary) hypertension
CPT/HCPCS: 36415; 80053; 82306; 82330; 82652; 83970; 85025

== ENCOUNTER → 2018-11-09 | Outpatient (CLI) | payer MEDICARE | END | disposition home or self-care (01) | LOC: LABWHC1 15:13 | PROVIDERS: ATTEND Nurse Practitioner | DX: R00.0 Tachycardia, unspecified (principal) | CPT/HCPCS: 36415; 84439; 84443 ==

== ENCOUNTER → 2018-11-19 | Outpatient (CLI) | payer MEDICARE | END | disposition home or self-care (01) | LOC: LABPAT 13:54 | PROVIDERS: ATTEND Orthopaedic Surgery | DX: Z01.812 Encounter for preprocedural laboratory examination (principal); M16.11 Unilateral primary osteoarthritis, right hip | CPT/HCPCS: 87070 ==

== ENCOUNTER 2018-11-30 06:21 | Inpatient (IN) | payer MEDICARE ==
--- NOTE | 2018-11-29 18:10 | HP ---
HISTORY AND PHYSICAL REASON FOR ADMISSION: Surgery scheduled for 11/30/2018 HISTORY OF PRESENT ILLNESS: Kat Pritchard is a 73-year-old patient seen with symptomatic right hip osteoarthritis. After having treatment options discussed, she elected to proceed with right total hip arthroplasty. Consent was obtained, clearance was provided by Dr. Doni Frias. PAST MEDICAL HISTORY: Hypertension, gastroesophageal reflux disease. PAST SURGICAL HISTORY: Noncontributory. MEDICATIONS: Losartan/hydrochlorothiazide, Prilosec. ALLERGIES: None. SOCIAL HISTORY: She denies current tobacco use. PHYSICAL EXAMINATION: Physical evaluation of the right hip, she has diffuse tenderness along the hip girdle. She has limited range of motion with severe pain. Positive hip impingement sign. Straight leg raise is negative. Her distal neurovascular exam is intact. RADIOGRAPHS: Radiographs of the right hip reveals severe osteoarthritic changes. IMPRESSION: 1. Right hip osteoarthritis. 2. Hypertension. PLAN: Direct anterior right total hip arthroplasty. Surgery 11/30/2018. MMODL / IJN: [id number] /
[~2018-11-30 06:21] MED LIST changes: +DEXAMETHASONE SOD PHOSPHATE 10 MG/ML 1 ML VIAL IV ONE; -HYDROmorphone 0.5 MG/0.5 ML SYRINGE IVP PRN; -LACTATED RINGERS 1,000 ML IV SCH; -LIDOCAINE 1% 20 ML VIAL (10MG/ML) FOR IV START INTRADERMA PRN; +MIDAZOLAM (PF) 2 MG/2 ML VIAL IV PRN; -fentaNYL (PF) 50 MCG/ML 20 ML VIAL IVP PRN
[2018-11-30] MEDS ORDERED: METOPROLOL TARTRATE 25 MG TAB PO STA (07:11)
[2018-11-30] MEDS ORDERED: PANTOPRAZOLE 40 MG TABLET PO STA (07:12)
[2018-11-30] MEDS ORDERED: FLECAINIDE 50 MG TAB PO STA (07:12)
[2018-11-30] MEDS ORDERED: LIDOCAINE 1% 20 ML VIAL (10MG/ML) FOR IV START SQ ONE (07:15)
[2018-11-30] MEDS: LACTATED RINGERS 1,000 ML IV SCH (07:22)
[2018-11-30] MEDS ORDERED: PHENYLEPHRINE-0.9% NACL SYG 1 MG/10 ML SYRINGE ONE (07:25)
[2018-11-30] MEDS ORDERED: SODIUM CHLORIDE 0.9% 100 ML BAG ONE (07:25)
[2018-11-30] MEDS ORDERED: PROPOFOL 10 MG/ML 20 ML VIAL IV ONE (07:25)
[2018-11-30] MEDS ORDERED: MIDAZOLAM 2 MG/2 ML VIAL ONE (07:25)
[2018-11-30] MEDS ORDERED: LIDOCAINE 1% INJ 10MG/ML (20 ML MDV) ONE (07:25)
[2018-11-30] MEDS ORDERED: TRANEXAMIC ACID 1,000 MG/10 ML VIAL ONE (07:25)
[2018-11-30] MEDS ORDERED: ROPIVACAINE 246.25 MG, EPINEPHrine 0.5 MG, KETOROLAC 30 MG, cloNIDine HCL/PF 80 MCG, WA... MISCELLANE ONE ×5 (07:40)
[2018-11-30] MEDS ORDERED: HYDROcodone/APAP 5-325MG 1 EACH TAB PO PRN (09:01)
[2018-11-30] MEDS ORDERED: ACETAMINOPHEN TAB 325 MG TAB PO PRN (09:01)
[2018-11-30] MEDS ORDERED: ONDANSETRON 4 MG/2 ML VIAL IVP PRN (09:01)
[2018-11-30] MEDS ORDERED: MAGNESIUM HYDROXIDE 2,400 MG/10 ML CUP PO PRN (09:01)
[2018-11-30] MEDS ORDERED: NALOXONE 0.4 MG/ML 1 ML VIAL IV PRN (09:01)
[2018-11-30] MEDS ORDERED: HYDROmorphone 0.5 MG/0.5 ML SYRINGE IVP PRN ×2 (09:01)
--- NOTE | 2018-11-30 09:20 | XR ---
EXAMINATION TYPE: XR Hip Limited RT DATE OF EXAM: 11/30/2018 COMPARISON: NONE HISTORY: Postop TECHNIQUE: One view submitted. FINDINGS: There is postsurgical change in near anatomic alignment. There is soft tissue edema and emphysema. IMPRESSION: 1. Postoperative change. Appears in near-anatomic alignment.
--- NOTE | 2018-11-30 09:21 | FL ---
EXAMINATION TYPE: FL guidance operating room DATE OF EXAM: 11/30/2018 HISTORY: Flouroscopy time 37 seconds of fluoroscopy provided. IMPRESSION: 1. Fluoroscopy time.
--- NOTE | 2018-11-30 09:28 | P.OP ---
Date of Procedure: 11/30/18 Preoperative Diagnosis: Right hip osteoarthritis Postoperative Diagnosis: Right hip osteoarthritis Procedure(s) Performed: Direct anterior right total hip arthroplasty Implants: 1. Depuy Corail KA size 15 standard collar press-fit femoral stem 2. Depuy pinnacle 54 mm press-fit acetabular shell 3. Depuy pinnacle polyethylene acetabular liner neutral 36 mm ID 54 mm OD 4. Biolox delta ceramic femoral head +1.5 36 mm Anesthesia: local, spinal Surgeon: Theo Ozuna Estimated Blood Loss (ml): 100 Pathology: other (Femoral head) Condition: stable Disposition: PACU Indications for Procedure: 73-year-old patient seen with symptomatic right hip osteoarthritis. After treatment options were discussed, she elected to proceed with total hip arthroplasty. Operative Findings: See description of procedure Description of Procedure: The patient was taken to the operative suite. Patient underwent a spinal anesthetic by the department of anesthesia. Patient was then transferred to the [place] table. Patient was given preoperative IV antibiotics and TXA. Both lower extremities were placed in standard leg spars. The hip was then prepped and draped in the normal sterile orthopedic fashion. A standard anterior incision was made beginning 3 cm lateral and 1 cm distal to the ASIS extending 10 cm. Dissection was then carried down through the subcutaneous soft tissues down to the fascia overlying the tensor fascia guicho. An incision was now made through the fascia. Careful dissection was taken down exposing the tensor fascia guicho muscle. A Cobra retractor was now placed along the medial femoral neck and a second one along the lateral femoral neck. The venous circumflex vessels were now identified, cauterized and clipped. We identified the anterior hip capsule. An incision was made through the hip capsule along the lateral border. I performed a partial anterior capsulectomy. Retractors were now placed around the femoral neck itself. A femoral neck cut was now made with a sagittal saw. It was completed with an osteotome at the lateral neck area. The femoral head was now removed without difficulty. The extremity was now rotated to 45 of external rotation. It was locked in position. Residual labrum was now debrided out. Serial reaming was performed of the acetabulum while my food trades assistants assisted holding an anterior retractor for exposure. Once we reached the appropriate size and a trial was position and fit nicely. The appropriate size was now chosen opened and made available. It was introduced into the acetabulum without difficulty. The C-arm/fluoroscopy was now brought into the operative field. We made sure we had a true AP pelvic view. We now under direct C-arm/fluoroscopy introduced into the acetabular component with appropriate version and inclin ation. I held the cup in appropriate position while my food trades assistants used a mallet to seat the acetabular component. I noted the component now to be well seated and stable. Acetabular cup introduce her was removed. The C-arm was pulled back. An appropriate liner was introduced and clicked into position. It was felt to be stable. At this point retractors were removed. The extremity was now placed into 120 external rotation with no traction. The leg was now dropped to the ground and adducted. Appropriate retractors were now positioned along the proximal femur. We also placed our femoral look into position. Additional capsular releasing was performed to gain access to the proximal femur. We now used a box osteotome. A canal finder was now utilized. Serial broaching was now performed with the assistance of my food trades assistants tapping the broaches down with a mallet while held the broach in appropriate rotation and position. This was done until we reached the appropriate size with good overall rotational stability. Appropriate calcar planing was performed. A trial head/neck was placed into position. The hip was now reduced. The C- arm/fluoroscopy was brought back into the operative field. A spot film was obtained of the nonoperative hip. A spot film was obtained of the trial components. Overlays were performed, we noted good overall alignment and positioning for determining leg length. The C-arm/fluoroscopy was pulled back. Retractors were repositioned and the hip was dislocated. The leg was again taken down to the ground and adducted. Appropriate retractors were repositioned as well as the femoral hook. All trial components were removed. The femoral implant was opened along with the femoral head. The femoral implant was introduced on the appropriate handle into our pre-broached area. I held the component position while my food trades assistants used a mallet to seat the femoral component. The femoral component was now noted to be well seated and stable.. The femoral head was introduced with good positioning and fixation noted. Retractors were now removed. The hip was now reduced. There appeared be good positioning of the hip confirmed on intraoperative fluoroscopy. Spot films were obtained to document this. A second gram of TXA was given. The deep and superficial soft tissues were infiltrated with local analgesic. Bipolar cautery had been utilized intermittently through the procedure for hemostasis. The wound was irrigated copiously with pulse lavage mechanical irrigation. The fascia was repaired with Vicryl suture. The subcutaneous soft tissues were repaired in layers with Vicryl suture. The skin was approximated with pernio/Dermabond. Sterile dressings were applied. Patient was then awakened, transferred to a bed and taken to recovery in stable condition.
[2018-11-30] MEDS ORDERED: LACTATED RINGERS 1,000 ML IV ONE (09:36)
[2018-11-30] MEDS: HYDROmorphone 0.5 MG/0.5 ML SYRINGE IVP PRN ×2 (12:20→12:36)
[2018-11-30] MEDS: traMADol 50 MG TAB PO SCH ×3 (16:45→22:51)
[2018-11-30 17:17] VITALS: BMI 45.1
[2018-11-30] MEDS ORDERED: ALPRAZolam 0.25 MG TAB PO PRN (17:33)
[2018-11-30] MEDS: ceFAZolin 3 GM in SODIUM CHLORIDE 0.9% 100 ML IVPB SCH ×2 (17:53→23:03)
--- NOTE | 2018-11-30 18:26 | P.CONS ---
History of Present Illness - Reason for Consult Consult date: 11/30/18 Medical management - Chief Complaint Right hip osteoarthritis - History of Present Illness This is a 73-year-old female with past medical history noted below significant for severe osteoarthritis of the right hip who was admitted to the hospital for elective total right hip arthroplasty. She is postoperative day #0. Patient is doing fairly well. She denies any pain. She does not have any complaints. I was asked to see her for medical management. Review of Systems Review of system: 14 points review of systems were obtained and were negative except to what were mentioned in the HPI. Past Medical History Past Medical History: GERD/Reflux, Hearing Disorder / Deafness, Hyperlipidemia, Hypertension, Osteoarthritis (OA), Skin Disorder, Sleep Apnea/CPAP/BIPAP Additional Past Medical History / Comment(s): Psoriasis. USES CPAP. VARICOSE VEINS.uti, constipation since knee sx 06-16-17 had monique amt(pebble like bm yesterday History of Any Multi-Drug Resistant Organisms: None Reported Past Surgical History: Back Surgery, Joint Replacement, Orthopedic Surgery, Tubal Ligation Additional Past Surgical History / Comment(s): ORIF RT Arm; PLATE REMOVED. LUH KNEE SCOPES. SPINAL FUSION., right knee replacement, fusion L1/L2, right total Past Anesthesia/Blood Transfusion Reactions: Family History of Problems w/ Anesthesia, Motion Sickness, Postoperative Nausea & Vomiting (PONV) Additional Past Anesthesia/Blood Transfusion Reaction / Comm: SISTER WAS ON VENTILATOR AFTER SURGERY, SHE ALSO HAD LUPUS. Past Psychological History: Anxiety, Depression Additional Psychological History / Comment(s): pt's mom lives with her. pt recently had rt knee sx uses a walker when up. Smoking Status: Never smoker Past Alcohol Use History: None Reported Past Drug Use History: None Reported - Past Family History Brother(s) Family Medical History: Cancer Additional Family Medical History / Comment(s): 2 BROTHERS = CANCER Mother Additional Family Medical History / Comment(s): leaky heart valve Father Additional Family Medical History / Comment(s): Artery broke Medications and Allergies Home Medications Medication Instructions Recorded Confirmed Type Apixaban [Eliquis] 5 mg PO BID #60 tab 06/30/17 11/30/18 Rx Furosemide [Lasix] 20 mg PO DAILY #30 tab 06/30/17 11/30/18 Rx Allopurinol [Zyloprim] 100 mg PO DAILY 11/17/18 11/30/18 History Colchicine 0.6 mg PO DAILY 11/17/18 11/30/18 History Ergocalciferol [Vitamin D2] 50,000 unit PO MO 11/17/18 11/30/18 History Flecainide [Tambocor] 50 mg PO BID 11/17/18 11/30/18 History Losartan [Cozaar] 50 mg PO DAILY 11/17/18 11/30/18 History Metoprolol Tartrate [Lopressor] 75 mg PO BID 11/17/18 11/30/18 History Multivit with Calcium,Iron,Min 1 tab PO DAILY 11/17/18 11/30/18 History [Women's Multivitamin] Pantoprazole Sodium [Protonix] 40 mg PO DAILY 11/17/18 11/30/18 History busPIRone HCL 10 mg PO BID 11/17/18 11/30/18 History ALPRAZolam [Xanax] 0.25 mg PO DAILY PRN 11/30/18 11/30/18 History Allergies Allergy/AdvReac Type Severity Reaction Status Date / Time No Known Allergies Allergy Verified 11/30/18 18:24 Physical Exam Vitals: Vital Signs Temp Pulse Pulse Resp BP Pulse Ox 11/30/18 17:00 98 F 64 16 136/75 92 L 11/30/18 16:30 63 18 116/55 96 11/30/18 15:30 60 18 126/60 94 L 11/30/18 14:30 57 L 18 111/57 96 11/30/18 13:30 57 L 18 140/64 98 11/30/18 12:30 56 L 18 125/59 99 11/30/18 12:00 63 18 135/63 10 L 11/30/18 11:30 59 L 18 128/68 99 11/30/18 11:00 64 18 112/57 96 11/30/18 10:30 53 L 18 107/59 94 L 11/30/18 10:16 57 L 18 109/58 99 11/30/18 10:01 56 L 18 97/56 100 11/30/18 09:46 60 18 105/58 100 11/30/18 09:37 97.4 F L 61 18 98/52 94 L 11/30/18 07:01 97.3 F L 103 H 16 137/63 93 L Intake and Output 11/30/18 11/30/18 11/30/18 06:59 14:59 22:59 Intake Total 1150 950 Output Total 100 Balance 1050 950 Intake: IV 1150 950 Output: Estimated Blood Loss 100 General: The patient is awake and alert, in no distress Eye: there is normal conjunctiva bilaterally. Neck: The neck is supple, there is no JVD. Cardiovascular: Normal S1-S2, no S3-S4, no murmurs. Respiratory: Lungs clear to auscultation bilaterally Gastrointestinal: Abdomen is soft, nontender Musculoskeletal: There is no pedal edema. Neurological:. Speech is normal. Skin: Skin is warm and dry Assessment and Plan Assessment: 1. Postoperative day #0 status post total right hip arthroplasty. Continue postoperative care. PT/OT evaluation. Orthopedics following. 2. Chronic atrial fibrillation on anticoagulation with Eliquis 3. Essential hypertension, blood pressure within acceptable range 4. Underlying anxiety disorder Today, I reviewed her medication list. Continue current regimen. We will continue to follow up on the patient closely with you. Thank you for the consultation.
[2018-11-30] MEDS: FLECAINIDE 50 MG TAB PO SCH (22:50)
[2018-11-30] MEDS: busPIRone HCl 10 MG TAB PO SCH (22:50)
[2018-11-30] MEDS: METOPROLOL TARTRATE 25 MG TAB PO SCH (22:51)
[2018-11-30] MEDS: SENNOSIDES-DOCUSATE SODIUM 1 EACH TAB PO SCH (22:51)
[2018-12-01] MEDS: HYDROcodone/APAP 5-325MG 1 EACH TAB PO PRN ×2 (05:49→15:27)
[2018-12-01 08:28] LABS: Basophils % (A) 0 %; Eosinophils # (A) 0.1 k/uL (0-0.7); Eosinophils % (A) 1 %; HCT 37.2 % (34.0-46.0); Lymphocytes # (A) 1.6 k/uL (1.0-4.8); Lymphocytes % (A) 18 %; MCH 30.2 pg (25.0-35.0); MCHC 31.9 g/dL (31.0-37.0); MCV 94.8 fL (80.0-100.0); Mean Platelet Volume 7.9; Monocytes # (A) 0.4 k/uL (0-1.0); Monocytes % (A) 5 %; Neutrophils % (A) 75 %; Platelet Count 190 k/uL (150-450); RBC 3.92 m/uL (3.80-5.40); RDW 13.1 % (11.5-15.5); WBC 9.3 k/uL (3.8-10.6)
[2018-12-01 08:32] LABS: HGB 11.9 gm/dL (11.4-16.0)
--- NOTE | 2018-12-01 09:22 | P.PN ---
Subjective Progress Note Date: 12/01/18 Patient is doing fairly well today. Pain is well-controlled. She was up twice with physical therapy. No acute events overnight reported to me by nursing staff. Objective - Vital Signs Vital signs: Vital Signs Temp 98.0 F 12/01/18 01:15 Pulse 71 12/01/18 01:15 Resp 15 12/01/18 01:15 BP 120/70 12/01/18 01:15 Pulse Ox 97 12/01/18 01:15 Intake & Output 11/30/18 12/01/18 12/01/18 18:59 06:59 18:59 Intake Total 2396 Output Total 100 Balance 2296 Intake: IV 2100 Oral 296 Output: Estimated Blood Loss 100 Other: Voiding Method Toilet # Voids 1 - Exam General: The patient is awake and alert, in no distress Eye: there is normal conjunctiva bilaterally. Neck: The neck is supple, there is no JVD. Cardiovascular: Normal S1-S2, no S3-S4, no murmurs. Respiratory: Lungs clear to auscultation bilaterally Gastrointestinal: Abdomen is soft, nontender Musculoskeletal: There is no pedal edema. Neurological:. Speech is normal. Skin: Skin is warm and dry - Labs CBC & Chem 7: 12/01/18 07:29 Assessment and Plan Assessment: 1. Postoperative day #1 status post total right hip arthroplasty. Continue postoperative care. PT/OT evaluation. Orthopedics following. 2. Chronic atrial fibrillation on anticoagulation with Eliquis 3. Essential hypertension, blood pressure within acceptable range 4. Underlying anxiety disorder Today, I reviewed her medication list and lab work results. Patient is medically cleared for discharge. Discharge planning per primary team.
[2018-12-01] MEDS: LACTATED RINGERS 1,000 ML IV SCH (09:28)
[2018-12-01] MEDS: ALLOPURINOL 100 MG TAB PO SCH (09:43)
[2018-12-01] MEDS: FAMOTIDINE 20 MG TAB PO SCH (09:43)
[2018-12-01] MEDS: FLECAINIDE 50 MG TAB PO SCH ×2 (09:43→21:17)
[2018-12-01] MEDS: traMADol 50 MG TAB PO SCH ×4 (09:43→21:12)
[2018-12-01] MEDS: PANTOPRAZOLE 40 MG TABLET PO SCH (09:43)
[2018-12-01] MEDS: busPIRone HCl 10 MG TAB PO SCH ×2 (09:43→21:12)
[2018-12-01] MEDS: METOPROLOL TARTRATE 25 MG TAB PO SCH ×2 (09:43→21:12)
[2018-12-01] MEDS: APIXABAN 5 MG TAB PO SCH ×2 (09:43→21:12)
[2018-12-01 09:47] VITALS: RESP 16
--- NOTE | 2018-12-01 10:42 | P.PN ---
Subjective Progress Note Date: 12/01/18 Principal diagnosis: Status post direct anterior right total hip arthroplasty Patient evaluated today at bedside, she is resting comfortably. She's ambulated with therapy. She notes no acute discomfort. She denies any chest pain or shortness of breath. Objective - Vital Signs Vital signs: Vital Signs Temp 97.7 F 12/01/18 09:47 Pulse 80 12/01/18 09:47 Resp 16 12/01/18 09:47 BP 145/69 12/01/18 09:47 Pulse Ox 96 12/01/18 09:47 Intake & Output 11/30/18 12/01/18 12/01/18 18:59 06:59 18:59 Intake Total 2396 236 Output Total 100 Balance 2296 236 Intake: IV 2100 Oral 296 236 Output: Estimated Blood Loss 100 Other: Voiding Method Toilet # Voids 1 - Exam Right lower extremity: Incision is clean, dry, and intact. The exofin fusion tape is in good condition. There is minimal soft tissue swelling and ecchymosis surrounding the medial and lateral aspects of the incision. Calf is soft, no tenderness with palpation. Plantar flexion, dorsiflexion, EHL, FHL are intact. Sensory exam to light touch throughout the extremity is intact, dorsal pedis pulses 2+. - Labs CBC & Chem 7: 12/01/18 07:29 Assessment and Plan Plan: Assessment: Postop day #1 status post direct anterior right total hip arthroplasty Plan: Pain control, continue oral medication GI and DVT prophylaxis, continue current medication Wound care instructions discussed Encourage incentive spirometer Continue work with physical therapy Medical recommendations Possible discharge home today Time with Patient: Less than 30
[2018-12-01] MEDS: SENNOSIDES-DOCUSATE SODIUM 1 EACH TAB PO SCH (21:12)
[2018-12-02 08:12] VITALS: BP 103/53; PULSE 83; TEMP 98.7
[2018-12-02] MEDS: LACTATED RINGERS 1,000 ML IV SCH (08:32)
[2018-12-02] MEDS: busPIRone HCl 10 MG TAB PO SCH (08:43)
[2018-12-02] MEDS: FAMOTIDINE 20 MG TAB PO SCH (08:43)
[2018-12-02] MEDS: APIXABAN 5 MG TAB PO SCH (08:44)
[2018-12-02] MEDS: PANTOPRAZOLE 40 MG TABLET PO SCH (08:44)
[2018-12-02] MEDS: ALLOPURINOL 100 MG TAB PO SCH (08:44)
[2018-12-02] MEDS: METOPROLOL TARTRATE 25 MG TAB PO SCH (08:44)
[2018-12-02] MEDS: FLECAINIDE 50 MG TAB PO SCH (08:45)
[2018-12-02] MEDS: traMADol 50 MG TAB PO SCH ×2 (08:45→13:04)
[2018-12-02] MEDS: HYDROcodone/APAP 5-325MG 1 EACH TAB PO PRN ×2 (08:50→15:47)
--- NOTE | 2018-12-02 09:48 | P.PN ---
Subjective Progress Note Date: 12/02/18 Principal diagnosis: Status post direct anterior right total hip arthroplasty Patient evaluated today at bedside, she is resting comfortably. No acute complaints, patient ready for discharge home. She denies any chest pain or shortness of breath. Objective - Vital Signs Vital signs: Vital Signs Temp 98.7 F 12/02/18 07:35 Pulse 83 12/02/18 07:35 Resp 16 12/02/18 01:19 BP 103/53 12/02/18 07:35 Pulse Ox 97 12/02/18 07:35 Intake & Output 12/01/18 12/02/18 12/02/18 18:59 06:59 18:59 Intake Total 732 Balance 732 Intake: Oral 532 Other 200 Other: Voiding Method Toilet # Voids 3 1 2 - Exam Right lower extremity: Incision is clean, dry, and intact. The exofin fusion tape is in good condition. There is minimal soft tissue swelling and ecchymosis surrounding the medial and lateral aspects of the incision. Calf is soft, no tenderness with palpation. Plantar flexion, dorsiflexion, EHL, FHL are intact. Sensory exam to light touch throughout the extremity is intact, dorsal pedis pulses 2+. - Labs CBC & Chem 7: 12/01/18 07:29 Assessment and Plan Plan: Assessment: Postop day #2 status post direct anterior right total hip arthroplasty Plan: Pain control, plan for discharge home on oral medication GI and DVT prophylaxis, continue current medication Wound care instructions discussed Encourage incentive spirometer Continue work with physical therapy Medical recommendations Discharge home today Time with Patient: Less than 30
--- NOTE | 2018-12-02 09:51 | P.DS ---
Providers Date of admission: 11/30/18 06:21 Expected date of discharge: 12/02/18 Attending physician: Theo Ozuna Consults: 11/30/18 09:01 Consult Physician Routine Consulting Provider: Doni Frias Reason/Comments: medical management Do you want consulting provider notified?: Yes Primary care physician: Doni Frias [facility] Course: Date of admission: 11/30/2018 Date of discharge: 12/01/2018 Admission diagnosis: Status post direct anterior right total hip arthroplasty Discharge diagnosis: Same Attending physician: Dr. Ozuna Surgical procedures: Direct anterior right total hip arthroplasty Brief history: Patient is a 73-year-old female with a history of with progressive primary right hip osteoarthritis. At this point patient has failed conservative treatment measures and has opted to proceed with a elective direct anterior right total hip arthroplasty. Hospital course: Details of patient's surgery can be found in operative report. Patient tolerated the procedure well and was subsequently transported to orthopedic floor. Patient's orthopeidc and medical care was provided daily. Patient had daily laboratory tests performed for evaluation of overall blood counts. Patient had daily physical therapy to include strengthening range of motion as well as education with walker ambulation. Patient was treated with Eliquis for their postoperative DVT prophylaxis during their inpatient stay. Patient was noted to have a relatively uneventful postoperative course. Patient reported satisfactory pain control with oral pain medications by postoperative day 0. Patient showed satisfactory progress with physical therapy. Patient moved steadily through the program and had no difficulty meeting the goals by postoperative day 2. Given patient's otherwise satisfactory course and having met physical therapy goals, plan is to discharge patient home on postoperative day 2. Discharge condition/disposition: Patient will be discharged home in stable condition. Discharge medications: Instructions are given on resumption of patient's normal daily medications per primary care recommendation, in addition patient will be prescribed [place] 5 mg/325 mg, tramadol 50 mg, Colace 100 mg. Discharge instructions: 1. Wound care and infection precautions, keep incision dry and covered while showering, no lotions, creams, moisturizers. No soaking, tubs, pools, hottubs. Do not scrub over the incision. 2. Weight-bear as tolerated with walker / cane until follow-up. 3. Ice and elevate when necessary. Do not exceed 20 minutes per hour with ice pack. 4. Utilize compression sleeve until seen at first follow up appointment. 5. Visiting nursing care. 6. Home physical therapy. 7. Pain meds and anticoagulants per prescription. 8. Pain medication has potential to cause constipation. Increase oral fluid and fiber intake. Contact primary care provider if you have not had a bowel movement within 48 hours after discharge 9. No anti-inflammatory medication until discussed at first post operative visit, this including Motrin, Aleve, Mobic, Diclofenac. 10. Follow up in office at 2 weeks postop with Samson Davila PA-C 11. Follow up with your primary care doctor 7-10 days after discharge. 12. Contact [facility] with any questions, . Procedures: Direct anterior right total hip arthroplasty Patient Condition at Discharge: Good Plan - Discharge Summary Discharge Rx Participant: Yes New Discharge Prescriptions: New Docusate [Colace] 100 mg PO DAILY #30 capsule Hydrocodone/Acetaminophen [[place] 5-325] 1 each PO Q4HR PRN #42 tab PRN Reason: Pain traMADol HCl [Ultram] 50 mg PO Q6H PRN #28 tab PRN Reason: Pain Continue Apixaban [Eliquis] 5 mg PO BID #60 tab Furosemide [Lasix] 20 mg PO DAILY #30 tab Flecainide [Tambocor] 50 mg PO BID Metoprolol Tartrate [Lopressor] 75 mg PO BID busPIRone HCL 10 mg PO BID Losartan [Cozaar] 50 mg PO DAILY Allopurinol [Zyloprim] 100 mg PO DAILY Pantoprazole Sodium [Protonix] 40 mg PO DAILY Multivit with Calcium,Iron,Min [Women's Multivitamin] 1 tab PO DAILY Colchicine 0.6 mg PO DAILY Ergocalciferol [Vitamin D2 (DRISDOL)] 50,000 unit PO MO ALPRAZolam [Xanax] 0.25 mg PO DAILY PRN PRN Reason: Anxiety Discharge Medication List Apixaban [Eliquis] 5 mg PO BID #60 tab 06/30/17 [Rx] Furosemide [Lasix] 20 mg PO DAILY #30 tab 06/30/17 [Rx] Allopurinol [Zyloprim] 100 mg PO DAILY 11/17/18 [History] Colchicine 0.6 mg PO DAILY 11/17/18 [History] Ergocalciferol [Vitamin D2 (DRISDOL)] 50,000 unit PO MO 11/17/18 [History] Flecainide [Tambocor] 50 mg PO BID 11/17/18 [History] Losartan [Cozaar] 50 mg PO DAILY 11/17/18 [History] Metoprolol Tartrate [Lopressor] 75 mg PO BID 11/17/18 [History] Multivit with Calcium,Iron,Min [Women's Multivitamin] 1 tab PO DAILY 11/17/18 [History] Pantoprazole Sodium [Protonix] 40 mg PO DAILY 11/17/18 [History] busPIRone HCL 10 mg PO BID 11/17/18 [History] ALPRAZolam [Xanax] 0.25 mg PO DAILY PRN 11/30/18 [History] Docusate [Colace] 100 mg PO DAILY #30 capsule 12/02/18 [Rx] Hydrocodone/Acetaminophen [[place] 5-325] 1 each PO Q4HR PRN #42 tab 12/02/18 [Rx] traMADol HCl [Ultram] 50 mg PO Q6H PRN #28 tab 12/02/18 [Rx] Follow up Appointment(s)/Referral(s): [facility], [NON-STAFF] - As Needed Isaias Davila, GREER [PHYSICIAN HEALTH CARE FACILITY ADMINISTRATOR] - 2 Weeks Activity/Diet/Wound Care/Special Instructions: Orthopedic Discharge Instructions: 1. Wound care and infection precautions, keep incision dry and covered while showering, no lotions, creams, moisturizers. No soaking, pools, hot tubs. Do not scrub over incision. 2. Weight-bear as tolerated with walker / cane until follow-up. 3. Ice and elevate when necessary. Do not exceed 20 minutes per hour with ice pack. 4. Utilize compression sleeve until seen at first follow up appointment. 5. Pain meds and anticoagulants per prescription. 6. Pain medication has potential to cause constipation. Increase oral fluid and fiber intake. Contact primary care provider if you have not had a bowel movement within 48 hours after discharge. 7. No anti-inflammatory medication until discussed at first post operative visit, this including Motrin, Aleve, Mobic, Diclofenac. 8. Follow up in office at 2 weeks postop with Samson Davila PA-C 9. Follow up with your primary care doctor 7-10 days after discharge. 10. Contact [facility] with any questions, . Discharge Disposition: HOME WITH HOME HEALTH SERVICES
== END 2018-12-02 16:02 | disposition home health service (06) | DRG 470 ==
LOC: 2ORMAIN 06:21 → 4SSUR 16:33
PROVIDERS: ADMIT Orthopaedic Surgery; ATTEND Orthopaedic Surgery
PROC: 0SR904A Replacement of Right Hip Joint with Ceramic on Polyethylene Synthetic Substitute, Uncemented, Open Approach (ICD-10-PCS; principal; 2018-11-30 07:30)
DX: M16.11 Unilateral primary osteoarthritis, right hip (principal); Z68.42 Body mass index [BMI] 45.0-49.9, adult; E66.01 Morbid (severe) obesity due to excess calories; I48.0 Paroxysmal atrial fibrillation; E78.5 Hyperlipidemia, unspecified; F41.9 Anxiety disorder, unspecified; H91.90 Unspecified hearing loss, unspecified ear; I10 Essential (primary) hypertension; K21.9 Gastro-esophageal reflux disease without esophagitis; F32.9 Major depressive disorder, single episode, unspecified; I83.90 Asymptomatic varicose veins of unspecified lower extremity; L40.9 Psoriasis, unspecified; G47.33 Obstructive sleep apnea (adult) (pediatric); M54.16 Radiculopathy, lumbar region; Z79.01 Long term (current) use of anticoagulants; Z79.899 Other long term (current) drug therapy; Z98.1 Arthrodesis status; Z87.440 Personal history of urinary (tract) infections; Z80.3 Family history of malignant neoplasm of breast; Z82.49 Family history of ischemic heart disease and other diseases of the circulatory system
CPT/HCPCS: 36415; 73501; 85025; 86850; 86900; 86901; 88300

== ENCOUNTER 2019-02-09 20:03 | Emergency (ER) | payer MEDICARE ==
[2019-02-09] MEDS ORDERED: DIPH,PERTUS(ACELL)TETVAC-LF 0.5 ML VIAL IM ONE (21:31)
--- NOTE | 2019-02-09 21:32 | ED ---
Fall HPI - General Chief Complaint: Fall Stated Complaint: Fall-Face and rib injury Time Seen by Provider: 02/09/19 20:21 Source: patient Mode of arrival: wheelchair - History of Present Illness Initial Comments: 73-year-old female patient presents to the emergency department today for evaluation of left rib pain and head injury after experiencing a fall. Patient states she is walking in her driveway and tripped over the tongue of a trailer. Patient states that she was dazed for a moment after hitting her head but denies any loss of consciousness. Patient denies any current headache, blurred vision, double vision, nausea, vomiting, or dizziness. Denies any numbness, tingling, weakness to the extremities. Patient states that she did land on the left side causing injury to the left ribs. Patient states the area is becoming more tight pain for as the time goes on. She states it does hurt to take a deep breath but denies any shortness of breath. Denies any cough or hemoptysis. Patient does take Eliquis. She denies any other injuries. States she was able to ambulate after the fall. Patient denies any neck pain, back pain, chest pain, abdominal pain, nausea, vomiting, or difficulties with bowel movements or urination. - Related Data Home Medications Medication Instructions Recorded Confirmed Allopurinol [Zyloprim] 100 mg PO DAILY 11/17/18 02/09/19 Colchicine 0.6 mg PO DAILY 11/17/18 02/09/19 Flecainide [Tambocor] 50 mg PO BID 11/17/18 02/09/19 Metoprolol Tartrate [Lopressor] 75 mg PO BID 11/17/18 02/09/19 Multivit with Calcium,Iron,Min 1 tab PO DAILY 11/17/18 02/09/19 [Women's Multivitamin] Pantoprazole Sodium [Protonix] 40 mg PO DAILY 11/17/18 02/09/19 busPIRone HCL 10 mg PO BID 11/17/18 02/09/19 Cholecalciferol (Vitamin D3) 2,000 unit PO DAILY 02/09/19 02/09/19 [Vitamin D3] Cyclobenzaprine [Flexeril] 10 mg PO HS PRN 02/09/19 02/09/19 Losartan-Hctz 50-12.5 mg [Hyzaar 1 tab PO DAILY 02/09/19 02/09/19 50-12.5] Mirabegron [Myrbetriq] 50 mg PO DAILY 02/09/19 02/09/19 Previous Rx's Medication Instructions Recorded Apixaban [Eliquis] 5 mg PO BID #60 tab 06/30/17 Furosemide [Lasix] 20 mg PO DAILY #30 tab 06/30/17 traMADol HCl [Ultram] 50 mg PO Q6H PRN #28 tab 12/02/18 Lidocaine 5% Patch [Lidoderm] 1 patch TOPICAL DAILY #10 patch 02/09/19 Allergies Allergy/AdvReac Type Severity Reaction Status Date / Time duloxetine [From Cymbalta] AdvReac Nausea & Verified 02/09/19 20:57 Vomiting Review of Systems ROS Statement: Those systems with pertinent positive or pertinent negative responses have been documented in the HPI. ROS Other: All systems not noted in ROS Statement are negative. Past Medical History Past Medical History: GERD/Reflux, Hearing Disorder / Deafness, Hyperlipidemia, Hypertension, Osteoarthritis (OA), Skin Disorder, Sleep Apnea/CPAP/BIPAP Additional Past Medical History / Comment(s): Psoriasis. USES CPAP. VARICOSE VEINS.uti, constipation since knee sx 06-16- had monique wilkest(pebble like bm yesterday History of Any Multi-Drug Resistant Organisms: None Reported Past Surgical History: Back Surgery, Joint Replacement, Orthopedic Surgery, Tubal Ligation Additional Past Surgical History / Comment(s): ORIF RT Arm; PLATE REMOVED. LUH KNEE SCOPES. SPINAL FUSION., right knee replacement, fusion L1/L2, right total hip Past Anesthesia/Blood Transfusion Reactions: Family History of Problems w/ Anesthesia, Motion Sickness, Postoperative Nausea & Vomiting (PONV) Additional Past Anesthesia/Blood Transfusion Reaction / Comment(s): SISTER WAS ON VENTILATOR AFTER SURGERY, SHE ALSO HAD LUPUS. Past Psychological History: Anxiety, Depression Smoking Status: Never smoker Past Alcohol Use History: None Reported Past Drug Use History: None Reported - Past Family History Brother(s) Family Medical History: Cancer Additional Family Medical History / Comment(s): 2 BROTHERS = CANCER Mother Additional Family Medical History / Comment(s): leaky heart valve Father Additional Family Medical History / Comment(s): Artery broke General Exam Limitations: no limitations General appearance: alert, in no apparent distress, other (This is a well- developed, well-nourished elderly female patient in no acute distress. Vital signs upon presentation are temperature 98.4F, pulse 104, respirations 18, blood pressure 142/77, pulse ox 94% on room air.) Head exam: Present: other (Patient has hematoma to the left forehead, superficial abrasion) Eye exam: Present: normal appearance, PERRL, EOMI. Absent: scleral icterus, conjunctival injection, periorbital swelling ENT exam: Present: normal exam, normal oropharynx, mucous membranes moist Neck exam: Present: normal inspection, full ROM, other (Nontender, no step-off, no deformity to firm midline palpation of the posterior cervical spine. Full range of motion without pain or limitation.). Absent: tenderness, meningismus, lymphadenopathy Respiratory exam: Present: normal lung sounds bilaterally, chest wall tenderness (Left lateral over the lower ribs). Absent: respiratory distress, wheezes, rales, rhonchi, stridor Cardiovascular Exam: Present: regular rate, normal rhythm, normal heart sounds. Absent: systolic murmur, diastolic murmur, rubs, gallop, clicks GI/Abdominal exam: Present: soft, normal bowel sounds. Absent: distended, tenderness, guarding, rebound, rigid Back exam: Present: normal inspection, other (Nontender, no step-off, no deformity to firm midline palpation of the thoracic and lumbar vertebrae. Full range of motion without pain or limitation.). Absent: vertebral tenderness Neurological exam: Present: alert, oriented X3, CN II-XII intact Psychiatric exam: Present: normal affect, normal mood Skin exam: Present: warm, dry, intact, normal color. Absent: rash Course Vital Signs 02/09/19 20:09 Temperature 98.4 F Pulse Rate 104 H Respiratory 18 Rate Blood Pressure 142/77 O2 Sat by Pulse 94 L Oximetry Medical Decision Making - Medical Decision Making 73-year-old female patient presented to the emergency department today for evaluation of left rib pain after expressing a fall in her driveway. Physical examination did reveal contusion to the left forehead with a superficial abrasion. She also had tenderness over the left lateral lower ribs. Lungs are clear to auscultation with good air movement. She is neurologically intact with no focal deficits. CT brain and C-spine was obtained and showed no acute abnormalities. Chest x-ray with left rib series was obtained and showed no evidence for fracture or acute cardiopulmonary process. I did discuss findings and results with the patient. Patient does clinically present as a rib fracture so we'll treat her with Lidoderm patches, she does have home pain medication, incentive spirometry. She was educated regarding splinting, coughing, deep breathing exercises. She is educated regarding signs or symptoms of worsening head injury. She is instructed to follow-up with her primary care physician for recheck in 1-2 days. Return parameters were discussed in detail. She verbalizes understanding and agrees with this plan. - Radiology Data Radiology results: report reviewed, image reviewed Four total views of left ribs and chest are obtained. Report was reviewed in its entirety. Impression by Dr. Padmini Byrnes shows no acute process. CT brain and C-spine without contrast was obtained. Report was reviewed in its entirety. Impression by Dr. Padmini Byrnes shows no acute fracture dislocation evident in the cervical spine. No acute intracranial hemorrhage, mass effect, or midline shift. Disposition Clinical Impression: Rib pain on left side, Head injury, Traumatic hematoma of forehead Disposition: HOME SELF-CARE Condition: Good Instructions (If sedation given, give patient instructions): Rib Fracture (ED), Head Injury (ED), Hematoma (ED) Additional Instructions: Perform coughing and deep breathing exercises as directed. Take home pain medication as needed for symptom relief. Splint with appropriate coughing and deep breathing. Monitor for signs or symptoms of worsening head injury including but not limited to contusion, headache, vomiting, dizziness, or weakness. Follow-up with your primary care physician for recheck in 1-2 days. Return to the emergency department immediately for any new, worsening, or concerning symptoms. Prescriptions: Lidocaine 5% Patch [Lidoderm] 1 patch TOPICAL DAILY #10 patch Is patient prescribed a controlled substance at d/c from ED?: No Referrals: Doni Frias MD [Primary Care Provider] - 1-2 days Time of Disposition: 22:23
--- NOTE | 2019-02-09 21:49 | CT ---
EXAMINATION TYPE: CT brain anushka wo con DATE OF EXAM: 02/09/2019 COMPARISON: none HISTORY: fall. Contusion over left eye. CT DLP: 1378.8 mGycm Automated exposure control for dose reduction was used. TECHNIQUE: CT scan of the head and cervical spine are performed without contrast. FINDINGS: There is fracture or acute intracranial hemorrhage. There is no mass, mass effect, or mid line shift identified. The ventricles and sulci are within normal limits in size. The globes are in tact. Minimal preseptal soft tissue swelling noted over the left orbit. The visualized paranasal sinu ses and middle ear cavities and mastoid sinus air cells are clear. Cervical spine is visualized in its entirety from C1 through upper thoracic levels and demonstrates s atisfactory alignment without evidence of acute fracture or dislocation. Prevertebral soft tissue ap pears within normal limits. Moderately advanced multilevel spondylosis changes. The C1-C2 articulati on is unremarkable. IMPRESSION: 1. There is no acute fracture or dislocation evident in the cervical spine. 2. No acute intracranial hemorrhage, mass effect, or midline shift is seen.
--- NOTE | 2019-02-09 21:53 | XR ---
PROCEDURE: XR ribs LT w pa chest xray - 4V DATE AND TIME: 02/09/2019 9:13 PM CLINICAL INDICATION: PHH; Pain TECHNIQUE: Department protocol COMPARISON: 06/27/2017 FINDINGS: There is no pneumothorax or pleural effusion. There is no rib fracture or malalignment. The soft tissues are unremarkable. Aortic ectasia and moderate cardiac silhouette enlargement redemonstr ated. IMPRESSION: NO ACUTE PROCESS.
[2019-02-09] MEDS ORDERED: HYDROcodone/APAP 5-325MG 1 EACH TAB PO STA (22:59)
[2019-02-09 23:11] VITALS: BP 155/79; PULSE 87; RESP 20; TEMP 97.9
== END 2019-02-09 23:20 | disposition home or self-care (01) ==
LOC: EC 20:03
DX: S00.83XA Contusion of other part of head, initial encounter (principal); R07.81 Pleurodynia; K21.9 Gastro-esophageal reflux disease without esophagitis; H91.90 Unspecified hearing loss, unspecified ear; I10 Essential (primary) hypertension; M19.90 Unspecified osteoarthritis, unspecified site; G47.30 Sleep apnea, unspecified; F32.9 Major depressive disorder, single episode, unspecified; F41.9 Anxiety disorder, unspecified; Z88.8 Allergy status to other drugs, medicaments and biological substances; Z79.899 Other long term (current) drug therapy; Z98.1 Arthrodesis status; Z96.641 Presence of right artificial hip joint; Z96.651 Presence of right artificial knee joint; Z99.89 Dependence on other enabling machines and devices; Z23 Encounter for immunization; W01.0XXA Fall on same level from slipping, tripping and stumbling without subsequent striking against object, initial encounter; Y93.01 Activity, walking, marching and hiking; Y92.59 Other trade areas as the place of occurrence of the external cause
CPT/HCPCS: 70450; 72125; 90471; 90715; 99284

== ENCOUNTER → 2020-03-22 | Outpatient (CLI) | payer MEDICARE ==
[2020-03-22 13:25] LABS: Basophils % (A) 0 %; Eosinophils # (A) 0.1 k/uL (0-0.7); Eosinophils % (A) 2 %; HCT 50.3 % (34.0-46.0); HGB 16.4 gm/dL (11.4-16.0); Lymphocytes # (A) 1.7 k/uL (1.0-4.8); Lymphocytes % (A) 28 %; MCH 32.2 pg (25.0-35.0); MCHC 32.6 g/dL (31.0-37.0); MCV 98.7 fL (80.0-100.0); Mean Platelet Volume 8.4; Monocytes # (A) 0.3 k/uL (0-1.0); Monocytes % (A) 5 %; Neutrophils % (A) 64 %; Platelet Count 249 k/uL (150-450); RDW 12.9 % (11.5-15.5); WBC 6.2 k/uL (3.8-10.6)
[2020-03-22 13:52] LABS: Appearance,Urine Clear (Clear); Bacteria,Urine Rare /hpf; Bilirubin,Urine Negative (Negative); Blood,Urine Negative (Negative); Color,Urine Yellow; Glucose,Urine (UA) Negative (Negative); Ketones,Urine Negative (Negative); Leukocyte Esterase,Urine Trace (Negative); Mucus,Urine Rare /hpf; Nitrite,Urine Negative (Negative); PH, Urine 5.5 (5.0-8.0); Protein,Urine Trace (Negative); RBC,Urine 2 /hpf (0-5); Specific Gravity,Urine 1.025 (1.001-1.035); Squamous Epithelial Cell,Urine <1 /hpf (0-4); Urobilinogen,Urine <2.0 mg/dL (<2.0); WBC,Urine 4 /hpf (0-5)
[2020-03-22 19:01] LABS: African American GFR (CKD) 73.5 (60.0-200.0); Albumin 4.4 g/dL (3.80-4.90); Albumin/Globulin Ratio 1.57 (1.60-3.17); Anion Gap 8.8 mmol/L (4.00-12.00); BUN/Creat Ratio 18.89 Ratio (12.00-20.00); Calcium 9.8 mg/dL (8.7-10.3); Carbon Dioxide 22.2 mmol/L (21.6-31.8); Chol/HDL Ratio 4.07; Globulin 2.8 g/dL (1.6-3.3); LDL Cholesterol,Calculated 161.2 mg/dL (0.0-131.0); Non-African American GFR(CKD) 63.4 (60.0-200.0); Potassium 4.6 mmol/L (3.5-5.5); Total Bilirubin 1.1 mg/dL (0.2-1.2); Total Protein 7.2 g/dL (6.2-8.2); VLDL Calculation 22.8 mg/dL (5.00-40.00)
== END | disposition home or self-care (01) ==
LOC: LABWHC1 11:38
PROVIDERS: ATTEND Internal Medicine
DX: I10 Essential (primary) hypertension (principal); Z13.9 Encounter for screening, unspecified; E55.9 Vitamin D deficiency, unspecified; E66.01 Morbid (severe) obesity due to excess calories
CPT/HCPCS: 36415; 80053; 80061; 81001; 82306; 84443; 85025; 86803

== ENCOUNTER 2020-12-18 10:33 | Observation (INO) | payer MEDICARE ==
[2020-12-18] MEDS ORDERED: ONDANSETRON 4 MG/2 ML VIAL IVP STA (10:53)
[2020-12-18] MEDS ORDERED: ASPIRIN 81 MG PO STA (10:53)
[2020-12-18] MEDS ORDERED: NITROGLYCERIN SL TABS 0.4 MG TAB SUBLINGUAL STA (10:53)
[2020-12-18] MEDS ORDERED: MORPHINE SULFATE 2 MG/ML SYRINGE IVP ONE ×2 (10:55→12:20)
[2020-12-18 11:33] LABS: Basophils # (A) 0.1 k/uL (0-0.2); Basophils % (A) 1 %; Eosinophils # (A) 0.2 k/uL (0-0.7); Eosinophils % (A) 1 %; HCT 51.1 % (34.0-46.0); HGB 16.6 gm/dL (11.4-16.0); Lymphocytes # (A) 1.3 k/uL (1.0-4.8); Lymphocytes % (A) 11 %; MCH 30.8 pg (25.0-35.0); MCHC 32.5 g/dL (31.0-37.0); MCV 94.9 fL (80.0-100.0); Mean Platelet Volume 7.9; Monocytes # (A) 0.5 k/uL (0-1.0); Monocytes % (A) 4 %; Neutrophils # (A) 9.6 k/uL (1.3-7.7); Neutrophils % (A) 83 %; Platelet Count 302 k/uL (150-450); RBC 5.38 m/uL (3.80-5.40); RDW 13.5 % (11.5-15.5); WBC 11.6 k/uL (3.8-10.6)
[2020-12-18 11:52] LABS: INR 0.9 (<1.2); Partial Thromboplastin Time 23.1 sec (22.0-30.0); Prothrombin Time 9.9 sec (9.0-12.0)
[2020-12-18 11:56] LABS: Albumin 4.4 g/dL (3.5-5.0); Calcium 9.9 mg/dL (8.4-10.2); Magnesium 1.9 mg/dL (1.6-2.3); Potassium 4.6 mmol/L (3.5-5.1); Total Bilirubin 1.7 mg/dL (0.2-1.3); Total Protein 7.8 g/dL (6.3-8.2)
--- NOTE | 2020-12-18 12:00 | XR ---
EXAMINATION TYPE: XR chest 2V DATE OF EXAM: 12/18/2020 COMPARISON: Chest x-ray from February 09, 2019. CTA chest June 27, 2017 HISTORY: Chest pain today. TECHNIQUE: Frontal and lateral views of the chest are obtained. FINDINGS: There is redemonstration of cardiomegaly. There is new mild interstitial edema are increas ed interstitial prominence bilaterally. No new focal airspace opacity, pleural effusion, or pneumotho rax is seen. Spurring of thoracic spine is redemonstrated. IMPRESSION: Correlate for CHF exacerbation as there is cardiomegaly with mild to moderate bilateral interstitial edema present.
--- NOTE | 2020-12-18 12:07 | ED ---
Chest Pain HPI - General Chief Complaint: Chest Pain Stated Complaint: chest pain Time Seen by Provider: 12/18/20 10:45 Source: patient, family Mode of arrival: wheelchair Limitations: no limitations - History of Present Illness Initial Comments: Patient is a 75-year-old female with history of A. fib, no thinners, hypertension, hyperlipidemia, presenting to the emergency Department with complaints of chest pain that started this morning. Patient states she woke up this morning feeling some discomfort in her chest and some mild nausea. She states she thought she was just hungry and tried to eat some p.m. but her toes but the pain had persisted. To the ER about 4 hours after the pain started. She states it is fairly constant, some mild radiation up to the left side of the neck, she currently rates it at 10/10. She does admit to some nausea, no vomiting, no diarrhea. She denies any shortness of breath, no recent fever or chills. She states yesterday she felt her normal self. She states he used to be on a lot of medications but is currently only on hypertensive medication and antidepressant. She did not take her hypertension medication this morning. She denies history of blood clots. She has no further complaints at this time. Upon arrival to the ER, her vital signs are stable. - Related Data Home Medications Medication Instructions Recorded Confirmed Betamethasone Dipropionate 1 applic TOPICAL BID PRN 12/18/20 12/18/20 [Diprolene AF 0.05% Cream] buPROPion XL [Wellbutrin Xl] 300 mg PO DAILY 12/18/20 12/18/20 Allergies Allergy/AdvReac Type Severity Reaction Status Date / Time duloxetine [From Cymbalta] Allergy Rash/Hives Verified 12/18/20 13:32 famotidine Allergy Rash/Hives Verified 12/18/20 13:32 Review of Systems ROS Statement: Those systems with pertinent positive or pertinent negative responses have been documented in the HPI. ROS Other: All systems not noted in ROS Statement are negative. EKG Findings - EKG Comments: EKG Findings:: Normal sinus rhythm, possible inferior infarct, age undetermined, no signs of any acute ischemia process. Ventricular rate 85, P interval 144, QT 358. Past Medical History Past Medical History: Atrial Fibrillation, GERD/Reflux, Hearing Disorder / Deafness, Hyperlipidemia, Hypertension, Osteoarthritis (OA), Skin Disorder, Sleep Apnea/CPAP/BIPAP Additional Past Medical History / Comment(s): Psoriasis. USES CPAP. VARICOSE VEINS.uti, constipation since knee sx 10--17 had samgm amt(pebble like bm yesterday History of Any Multi-Drug Resistant Organisms: None Reported Past Surgical History: Back Surgery, Joint Replacement, Orthopedic Surgery, Tubal Ligation Additional Past Surgical History / Comment(s): ORIF RT Arm; PLATE REMOVED. LUH KNEE SCOPES. SPINAL FUSION., right knee replacement, fusion L1/L2, right total hip Past Anesthesia/Blood Transfusion Reactions: Family History of Problems w/ Anesthesia, Motion Sickness, Postoperative Nausea & Vomiting (PONV) Additional Past Anesthesia/Blood Transfusion Reaction / Comment(s): SISTER WAS ON VENTILATOR AFTER SURGERY, SHE ALSO HAD LUPUS. Past Psychological History: Anxiety, Depression Smoking Status: Never smoker Past Alcohol Use History: None Reported Past Drug Use History: None Reported - Past Family History Brother(s) Family Medical History: Cancer Additional Family Medical History / Comment(s): 2 BROTHERS = CANCER Mother Additional Family Medical History / Comment(s): leaky heart valve Father Additional Family Medical History / Comment(s): Artery broke General Exam - General Exam Comments Initial Comments: GENERAL: Patient is well-developed and well-nourished. Patient is nontoxic and in no mild distress. HEAD: Atraumatic, normocephalic. EYES: Pupils equal round and reactive to light, extraocular movements intact, sclera anicteric, conjunctiva are normal. Eyelids were unremarkable. ENT: TMs normal, nares patent, oropharynx clear without exudates. Moist mucous membranes. NECK: Normal range of motion, supple without lymphadenopathy or JVD. LUNGS: Unlabored respirations. Breath sounds clear to auscultation bilaterally and equal. No wheezes rales or rhonchi. HEART: Regular rate and rhythm without murmurs, rubs or gallops. ABDOMEN: Soft, nontender, normoactive bowel sounds. No guarding, no rebound. No masses appreciated. : Deferred MUSCULOSKELETAL: Normal extremities with adequate strength and normal range of motion, no pitting or edema. No clubbing or cyanosis. NEUROLOGICAL: Patient is alert and oriented x 3. Motor and sensory are also intact. Cranial nerves II through XII grossly intact. Symmetrical smile. Normal speech, normal gait. PSYCH: Normal mood, normal affect. SKIN: Warm, Dry, normal turgor, no rashes or lesions noted. Limitations: no limitations Course Vital Signs 12/18/20 12/18/20 12/18/20 10:40 11:27 11:31 Temperature 97.8 F Pulse Rate 115 H 80 Respiratory 18 18 Rate Blood Pressure 139/85 O2 Sat by Pulse 95 92 L 95 Oximetry 12/18/20 12/18/20 11:36 12:27 Temperature Pulse Rate 75 75 Respiratory 18 Rate Blood Pressure 131/65 115/61 O2 Sat by Pulse 95 Oximetry Chest Pain [facility] Patient is a 75-year-old female with history of hypertension, A. fib but no thinners, presenting with chest pain that started this morning. Her vital signs are stable, EKG shows no acute process at this time. White count 11.6, hemoglobin is stable. Sight elevation in liver enzymes, troponin is normal, BNP is 29, rapid Covid is negative. Chest x-ray shows correlate for CHF exacerbation, cardiomegaly with mild to moderate bilateral interstitial edema. He has been given nitro and morphine for pain control. She does report improvement in her symptoms. Patient will be admitted for serial troponins, cardiac consult. She is in agreement with this plan of care. Patient accepted by . Case discussed with Dr. Almeida. Disposition Clinical Impression: Chest pain Disposition: ADMITTED IP TO THIS HOSP Condition: Stable Is patient prescribed a controlled substance at d/c from ED?: No Referrals: Nicol Bain MD [Primary Care Provider] - 1-2 days Decision Date: 12/18/20 Decision Time: 12:51
[2020-12-18] MEDS ORDERED: MORPHINE SULFATE 2 MG/ML SYRINGE IVP PRN (12:48)
[2020-12-18] MEDS ORDERED: NITROGLYCERIN SL TABS 0.4 MG TAB SUBLINGUAL PRN (12:48)
[2020-12-18] MEDS ORDERED: CYCLOBENZAPRINE 10 MG TAB PO PRN (13:09)
--- NOTE | 2020-12-18 13:11 | P.HPIM ---
History of Present Illness H&P Date: 12/18/20 Chief Complaint: Chest pain This is a 75-year-old white female who reported to the hospital with chest pain. Chest pain woke her up around 7 AM. She describes it as burning substernal, similar to heartburn that lasted a little bit longer. It was 10 over 10 in severity but currently it has improved and is down to 6/10. She denies shortness of breath, no dizziness no loss of consciousness. She denies hematuria dysuria hematemesis or hematochezia. She denies abdominal pain. She denies subjective fever or chills. She denies cough. At the time of examination patient feels better, patient's daughter is at bedside. Review of Systems 10 systems reviewed, pertinent positive and negative findings as in HPI. Chest pain, no abdominal pain Past Medical History Past Medical History: Atrial Fibrillation, GERD/Reflux, Hearing Disorder / Deafness, Hyperlipidemia, Hypertension, Osteoarthritis (OA), Skin Disorder, Sleep Apnea/CPAP/BIPAP Additional Past Medical History / Comment(s): Psoriasis. USES CPAP. VARICOSE VEINS.uti, constipation since knee sx 06-16-17 had monique amt(pebble like bm yesterday History of Any Multi-Drug Resistant Organisms: None Reported Past Surgical History: Back Surgery, Joint Replacement, Orthopedic Surgery, Tubal Ligation Additional Past Surgical History / Comment(s): ORIF RT Arm; PLATE REMOVED. LUH KNEE SCOPES. SPINAL FUSION., right knee replacement, fusion L1/L2, right total hip Past Anesthesia/Blood Transfusion Reactions: Family History of Problems w/ Anesthesia, Motion Sickness, Postoperative Nausea & Vomiting (PONV) Additional Past Anesthesia/Blood Transfusion Reaction / Comment(s): SISTER WAS ON VENTILATOR AFTER SURGERY, SHE ALSO HAD LUPUS. Past Psychological History: Anxiety, Depression Smoking Status: Never smoker Past Alcohol Use History: None Reported Past Drug Use History: None Reported - Past Family History Brother(s) Family Medical History: Cancer Additional Family Medical History / Comment(s): 2 BROTHERS = CANCER Mother Additional Family Medical History / Comment(s): leaky heart valve Father Additional Family Medical History / Comment(s): Artery broke Medications and Allergies Home Medications Medication Instructions Recorded Confirmed Type Apixaban [Eliquis] 5 mg PO BID #60 tab 06/30/17 02/09/19 Rx Furosemide [Lasix] 20 mg PO DAILY #30 tab 06/30/17 02/09/19 Rx Colchicine 0.6 mg PO DAILY 11/17/18 02/09/19 History Flecainide [Tambocor] 50 mg PO BID 11/17/18 02/09/19 History Metoprolol Tartrate [Lopressor] 75 mg PO BID 11/17/18 02/09/19 History Multivit with Calcium,Iron,Min 1 tab PO DAILY 11/17/18 02/09/19 History [Women's Multivitamin] Pantoprazole Sodium [Protonix] 40 mg PO DAILY 11/17/18 02/09/19 History allopurinoL [Zyloprim] 100 mg PO DAILY 11/17/18 02/09/19 History busPIRone HCL 10 mg PO BID 11/17/18 02/09/19 History traMADol HCl [Ultram] 50 mg PO Q6H PRN #28 tab 12/02/18 02/09/19 Rx Cholecalciferol (Vitamin D3) 2,000 unit PO DAILY 02/09/19 02/09/19 History [Vitamin D3] Cyclobenzaprine [Flexeril] 10 mg PO HS PRN 02/09/19 02/09/19 History Lidocaine 5% Patch [Lidoderm] 1 patch TOPICAL DAILY #10 patch 02/09/19 Rx Losartan-Hctz 50-12.5 mg [Hyzaar 1 tab PO DAILY 02/09/19 02/09/19 History 50-12.5] Mirabegron [Myrbetriq] 50 mg PO DAILY 02/09/19 02/09/19 History Allergies Allergy/AdvReac Type Severity Reaction Status Date / Time duloxetine [From Cymbalta] AdvReac Nausea & Verified 12/18/20 10:42 Vomiting Physical Exam Vitals: Vital Signs Temp Pulse Resp BP Pulse Ox 12/18/20 12:27 75 18 115/61 95 12/18/20 11:36 75 131/65 12/18/20 11:31 95 12/18/20 11:27 80 18 92 L 12/18/20 10:40 97.8 F 115 H 18 139/85 95 Intake and Output 12/17/20 12/18/20 12/18/20 22:59 06:59 14:59 Other: Weight 117.934 kg Constitutional: No acute distress, conversant, pleasant Eyes: Anicteric sclerae, moist conjunctiva, no lid-lag, PERRLA ENMT: NC/AT,Oropharynx clear, no erythema, exudates Neck:Supple, FROM, no masses, or JVD, No carotid bruits; No thyromegaly Lungs: Clear to auscultation, Clear to percussion, Normal respiratory effort, no accessory muscle use Cardiovascular: Heart regular in rate and rhythm, No murmurs, gallops, or rubs no peripheral edema Abdominal: Soft Nontender, non distended, no guarding, no rebound or rigidity, Normoactive bowel sounds , obese. Skin: Normal temperature, tone, texture, turgor, No induration No subcutaneous nodules, No rash, lesions, No ulcers Extremities:No digital cyanosis No clubbing, Pedal pulses intact and symmetrical Radial pulses intact and symmetrical Normal gait and station, No calf tenderness Psychiatric: Alert and oriented to person, place and time, Appropriate affect Intact judgement Neuro: Muscles Strength 5/5 in all 4 extremities, Sensation to light touch grossly present throughout, Cranial nerves II-XII grossly intact. No focal sensory deficits Results CBC & Chem 7: 12/18/20 11:14 12/18/20 11:14 Labs: Abnormal Lab Results - Last 24 Hours (Table) 12/18/20 12/18/20 Range/Units 11:14 11:14 WBC 11.6 H (3.8-10.6) k/uL Hgb 16.6 H (11.4-16.0) gm/dL Hct 51.1 H (34.0-46.0) % Neutrophils # 9.6 H (1.3-7.7) k/uL Glucose 135 H (74-99) mg/dL Total Bilirubin 1.7 H (0.2-1.3) mg/dL AST 129 H (14-36) U/L ALT 58 H (4-34) U/L Alkaline Phosphatase 142 H (38-126) U/L Assessment and Plan Plan: 1. Chest pain unspecified etiology: Continue to check cardiac enzymes, check d- dimer. Place on telemetry, cardiology consultation. 2. GERD without esophagitis: Continue PPI, changed to twice a day 3. Morbid obesity: BMI 42 4. Subjective sleep apnea on CPAP 5. Slight elevation in LFTs: Unknown etiology Monitor 6. Essential hypertension: Continue losartan/HCTZ 7. Gout without acute attack: Continue allopurinol 8. Chronic atrial fibrillation: Continue Eliquis , flecainide, metoprolol and Myrbetriq DVT: Eliquis Obs Disposition: Home in 1-2 days
[2020-12-18] MEDS: PANTOPRAZOLE 40 MG TABLET PO SCH (20:17)
[2020-12-18] MEDS: busPIRone HCl 10 MG TAB PO SCH (20:18)
[2020-12-18] MEDS: APIXABAN 5 MG TAB PO SCH (20:18)
[2020-12-18] MEDS ORDERED: METOPROLOL TARTRATE 25 MG TAB PO SCH (21:00)
[2020-12-18] MEDS ORDERED: FLECAINIDE 50 MG TAB PO SCH (21:00)
[2020-12-18 22:12] VITALS: RESP 16
[2020-12-19] MEDS: APIXABAN 5 MG TAB PO SCH (08:42)
[2020-12-19] MEDS: PANTOPRAZOLE 40 MG TABLET PO SCH (08:43)
[2020-12-19] MEDS: busPIRone HCl 10 MG TAB PO SCH (08:44)
[2020-12-19] MEDS ORDERED: NON FORMULARY DRUG (Mirabegron [Myrbetriq] 50 MG Tab.Er.24h) PO SCH (09:00)
[2020-12-19] MEDS ORDERED: ASPIRIN 325 MG TAB PO SCH (09:00)
[2020-12-19] MEDS ORDERED: COLCHICINE 0.6 MG EACH PO SCH (09:00)
[2020-12-19] MEDS ORDERED: allopurinoL 100 MG TAB PO SCH (09:00)
[2020-12-19] MEDS ORDERED: LOSARTAN-HCTZ 50-12.5 MG 1 EACH TAB PO SCH (09:00)
[2020-12-19] MEDS ORDERED: FUROSEMIDE 20 MG TAB PO SCH (09:00)
--- NOTE | 2020-12-19 10:21 | P.CRDCN ---
History of Present Illness History of present illness: woke up yesterday with burning in mid-sternal region associated with shortness of breath and feeling light headed. lasted until around 1030. happened again after lunch yesterday. HISTORY OF PRESENTING ILLNESS This is a pleasant 75-year-old female past medical history significant for paroxysmal atrial fibrillation, hypertension and dyslipidemia. She follows in the office with laurie Lu, last seen October 2018. We have been asked to see in consultation for pain. She states she woke up yesterday morning feeling a burning sensation in the midsternal region associated with some shortness of breath and feeling mildly lightheaded. According to the patient she has felt this in the past and is typically associated with reflux. She usually can get up glass of water take some Rolaids and her symptoms subsided however this time it persisted. On arrival to the emergency department she was having ongoing discomfort and was given IV morphine which did relieve her pain. She felt fine until she had lunch and then her symptoms returned. Currently she is chest pain-free with no further evidence of shortness of breath and her dizziness has also subsided. According to the patient approximately a year and a half ago she decided to stop taking all of her medications. She felt as though she was having significant medication side effects and that she was overmedicated. Ac cording to her in the previous one year she has had no symptoms of palpitations. She frequently checks her pulse and she said it usually runs about 70. It is unclear if she is going in and out of atrial fibrillation. DIAGNOSTICS EKG reveals sinus mechanism with no acute ST or T wave abnormalities noted with evidence of inferior Q waves, consistent with previous EKGs. Telemetry tracings indicate sinus mechanism with no acute arrhythmias. Chest xray bilateral interstitial edema. Laboratory reviewed, WBC 11.6, hemoglobin 16.6, platelets 302, sodium 140, potassium 4.6, creatinine 0.92, magnesium 1.9, cardiac enzymes negative 3, NT proBNP 29. She takes no daily cardiac medications. Previously was prescribed Eliquis 5 mg twice a day, Lopressor 50 mg twice a day, losartan/hydrochlorothiazide 50/4.5 mg daily, Lasix 20 mg daily and flecainide 50 mg twice a day. She underwent cardiac catheterization in 2017 revealing no significant obstructive CAD with a right dominant system. Most recent echocardiogram obtained in 2017 revealed preserved LV systolic function with ejection fraction 55-60%. REVIEW OF SYSTEMS At the time of my exam: CONSTITUTIONAL: Denies fever or chills. CARDIOVASCULAR: Denies chest pain, shortness of breath, orthopnea, PND or palpitations. RESPIRATORY: Denies cough. GASTROINTESTINAL: Denies abdominal pain, diarrhea, constipation, nausea or vomiting. MUSCULOSKELETAL: Denies myalgias. NEUROLOGIC: Denies numbness, tingling, headacbe or weakness. ENDOCRINE: Denies fatigue, weight change, polydipsia or polyurina. GENITOURINARY: Denies burning, hematuria or urgency with micturation. HEMATOLOGIC: Denies history of anemia or bleeding. PHYSICAL EXAMINATION Blood pressure 112/71 heart rate 84 afebrile and maintaining oxygen saturation on nasal cannula CONSTITUTIONAL: No apparent distress. HEENT: Head is normocephalic. Pupils are equal, round. Sclerae anicteric. Mucous membranes of the mouth are moist. No JVD. No carotid bruit. CHEST EXAMINATION: Lungs are clear to auscultation. No chest wall tenderness is noted on palpation or with deep breathing. HEART EXAMINATION: Regular rate and rhythm. S1, S2 heard. No murmurs, gallops or rub. ABDOMEN: Soft, nontender. Positive bowel sounds. EXTREMITIES: 2+ peripheral pulses, no lower extremity edema and no calf tenderness. NEUROLOGIC EXAMINATION: Patient is awake, alert and oriented x3. ASSESSMENT Chest pain, atypical Paroxysmal atrial fibrillation not currently taking recommended long-term anticoagulation Hypertension Dyslipidemia Morbid obesity, BMI 42 Medical non-compliance PLAN An acute coronary event has been ruled out. Lengthy discussion with the patient regarding her risk of stroke given her history of atrial fibrillation. Chads-Vasc score is 3. She is agreeable to resume eliquis 5 mg BID. Prescription has been sent to the pharmacy. Given she has been off flecainide now for over a year. Since admission no episodes of afib. I think it is reasonable to discontinue this medication. Echocardiogram has been obtained and will be reviewed. Check lipid panel. Perform stress echocardiogram to assess for stress induced ischemia. If stress test is normal she can be discharged home. Follow up with Dr. Lu in 2 weeks. Thank you kindly for this consultation. Nurse Practitioner note has been reviewed, I agree with a documented findings and plan of care. Patient was seen and examined. Past Medical History Past Medical History: Atrial Fibrillation, GERD/Reflux, Hearing Disorder / Deafness, Hyperlipidemia, Hypertension, Osteoarthritis (OA), Skin Disorder, Sleep Apnea/CPAP/BIPAP Additional Past Medical History / Comment(s): Psoriasis. USES CPAP. VARICOSE VEINS.uti, constipation since knee sx 06-16- had monique amt(pebble like bm yesterday History of Any Multi-Drug Resistant Organisms: None Reported Past Surgical History: Back Surgery, Joint Replacement, Orthopedic Surgery, Tubal Ligation Additional Past Surgical History / Comment(s): ORIF RT Arm; PLATE REMOVED. LUH KNEE SCOPES. SPINAL FUSION., right knee replacement, fusion L1/L2, right total hip Past Anesthesia/Blood Transfusion Reactions: Family History of Problems w/ Anesthesia, Motion Sickness, Postoperative Nausea & Vomiting (PONV) Additional Past Anesthesia/Blood Transfusion Reaction / Comment(s): SISTER WAS ON VENTILATOR AFTER SURGERY, SHE ALSO HAD LUPUS. Past Psychological History: Anxiety, Depression Smoking Status: Never smoker Past Alcohol Use History: None Reported Past Drug Use History: None Reported - Past Family History Brother(s) Family Medical History: Cancer Additional Family Medical History / Comment(s): 2 BROTHERS = CANCER Mother Additional Family Medical History / Comment(s): leaky heart valve Father Additional Family Medical History / Comment(s): Artery broke Medications and Allergies Home Medications Medication Instructions Recorded Confirmed Type Betamethasone Dipropionate 1 applic TOPICAL BID PRN 12/18/20 12/18/20 History [Diprolene AF 0.05% Cream] buPROPion XL [Wellbutrin Xl] 300 mg PO DAILY 12/18/20 12/18/20 History Allergies Allergy/AdvReac Type Severity Reaction Status Date / Time duloxetine [From Cymbalta] Allergy Rash/Hives Verified 12/18/20 13:32 famotidine Allergy Rash/Hives Verified 12/18/20 13:32 Physical Exam Vitals: Vital Signs Temp Pulse Pulse Resp BP BP Pulse Ox 12/19/20 07:00 98.4 F 84 16 112/71 97 12/19/20 02:00 98.0 F 83 16 124/76 97 12/18/20 23:30 97.9 F 82 16 129/74 98 12/18/20 22:11 86 16 129/76 98 12/18/20 20:00 16 12/18/20 17:29 98.1 F 90 18 158/87 97 12/18/20 12:27 75 18 115/61 95 12/18/20 11:36 75 131/65 12/18/20 11:31 95 12/18/20 11:27 80 18 92 L 12/18/20 10:40 97.8 F 115 H 18 139/85 95 Intake and Output 12/18/20 12/19/20 12/19/20 22:59 06:59 14:59 Other: Voiding Method Toilet Toilet # Voids 1 Weight 117.934 kg Results 12/18/20 11:14 12/18/20 11:14 Cardiac Enzymes 12/18/20 12/18/20 12/18/20 Range/Units 11:14 11:14 14:49 AST 129 H (14-36) U/L Troponin I <0.012 <0.012 (0.000-0.034) ng/mL 12/18/20 Range/Units 17:25 AST (14-36) U/L Troponin I <0.012 (0.000-0.034) ng/mL Coagulation 12/18/20 Range/Units 11:14 PT 9.9 (9.0-12.0) sec APTT 23.1 (22.0-30.0) sec CBC 12/18/20 Range/Units 11:14 WBC 11.6 H (3.8-10.6) k/uL RBC 5.38 (3.80-5.40) m/uL Hgb 16.6 H (11.4-16.0) gm/dL Hct 51.1 H (34.0-46.0) % Plt Count 302 (150-450) k/uL Comprehensive Metabolic Panel 12/18/20 Range/Units 11:14 Sodium 140 (137-145) mmol/L Potassium 4.6 (3.5-5.1) mmol/L Chloride 105 (98-107) mmol/L Carbon Dioxide 25 (22-30) mmol/L BUN 17 (7-17) mg/dL Creatinine 0.92 (0.52-1.04) mg/dL Glucose 135 H (74-99) mg/dL Calcium 9.9 (8.4-10.2) mg/dL AST 129 H (14-36) U/L ALT 58 H (4-34) U/L Alkaline Phosphatase 142 H (38-126) U/L Total Protein 7.8 (6.3-8.2) g/dL Albumin 4.4 (3.5-5.0) g/dL Current Medications Generic Name Dose Route Start Last Admin Trade Name Freq PRN Reason Stop Dose Admin Allopurinol 100 mg 12/19/20 09:00 Allopurinol 100 Mg Tab PO DAILY [facility] Apixaban 5 mg 12/18/20 21:00 12/18/20 20:18 Apixaban 5 Mg Tab PO Not Given BID [facility] Buspirone HCl 10 mg 12/18/20 21:00 12/18/20 20:18 Buspirone Hcl 10 Mg Tab PO 10 mg BID [facility] Administration Colchicine 0.6 mg 12/19/20 09:00 Colchicine 0.6 Mg Each PO DAILY [facility] Cyclobenzaprine HCl 10 mg 12/18/20 13:09 Cyclobenzaprine 10 Mg Tab PO HS PRN Muscle Spasm Flecainide Acetate 50 mg 12/18/20 21:00 12/18/20 20:17 Flecainide 50 Mg Tab PO Not Given BID [facility] Furosemide 20 mg 12/19/20 09:00 Furosemide 20 Mg Tab PO DAILY [facility] HCTZ/Losartan Potassium 1 each 12/19/20 09:00 Losartan-Hctz 50-12.5 Mg 1 Each Tab PO DAILY [facility] Metoprolol Tartrate 75 mg 12/18/20 21:00 12/18/20 20:16 Metoprolol Tartrate 25 Mg Tab PO Not Given BID [facility] Morphine Sulfate 2 mg 12/18/20 12:48 Morphine Sulfate 2 Mg/Ml Syringe IVP Q5M PRN Chest Pain Nitroglycerin 0.4 mg 12/18/20 12:48 Nitroglycerin Sl Tabs 0.4 Mg Tab SUBLINGUAL Q5M PRN Chest Pain Non-Formulary Medication 50 mg 12/19/20 09:00 Mirabegron [Myrbetriq] PO DAILY [facility] Pantoprazole Sodium 40 mg 12/18/20 21:00 12/18/20 20:17 Pantoprazole 40 Mg Tablet PO 40 mg BID [facility] Administration Intake and Output 12/18/20 12/19/20 12/19/20 22:59 06:59 14:59 Other: Voiding Method Toilet Toilet # Voids 1 Weight 117.934 kg 12/18/20 11:14 12/18/20 11:14
--- NOTE | 2020-12-19 12:00 | ECHOF ---
Referral Reason:chest pain MEASUREMENTS -------- HEIGHT: 165.1 cm WEIGHT: 117.9 kg BP: RVIDd: 3.4 cm (< 3.3) IVSd: 1.1 cm (0.6 - 1.1) LVIDd: 4.0 cm (3.9 - 5.3) LVPWd: 1.5 cm (0.6 - 1.1) IVSs: 1.5 cm LVIDs: 2.8 cm LVPWs: 1.6 cm LA Diam: 4.8 cm (2.7 - 3.8) LAESV Index (A-L): 24.21 ml/m Ao Diam: 2.9 cm (2.0 - 3.7) LA Diam: 4.4 cm (2.7 - 3.8) MV EXCURSION: 14.924 mm (> 18.000) MV EF SLOPE: 51 mm/s (70 - 150) EPSS: 0.4 cm MV E Greg: 0.43 m/s MV DecT: 338 ms MV A Greg: 0.89 m/s MV E/A Ratio: 0.48 RAP: 5.00 mmHg RVSP: 28.72 mmHg FINDINGS -------- Sinus rhythm. This was a technically adequate study. LV size, wall thickness and systolic function are normal, with an EF greater than 55%. The left germán tricular size is normal. The right ventricle is normal in size. The left atrial size is normal. The right atrial size is normal. The aortic valve is trileaflet, and appears structurally normal. No aortic stenosis or regurgitation. Mild mitral regurgitation is present. Mild tricuspid regurgitation present. Right ventricular systolic pressure is normal at < 35 mmHg. There is no pulmonic regurgitation present. The aortic root size is normal. There is no pericardial effusion. CONCLUSIONS -------- 1. LV size, wall thickness and systolic function are normal, with an EF greater than 55%. 2. The left ventricular size is normal. 3. The right ventricle is normal in size. 4. The left atrial size is normal. 5. The right atrial size is normal. 6. Mild mitral regurgitation is present. 7. Mild tricuspid regurgitation present. 8. There is no pulmonic regurgitation present. 9. The aortic root size is normal. 10. There is no pericardial effusion. CPS TEAM LEAD: Tasha Stevenson RDCS
--- NOTE | 2020-12-19 12:04 | P.DS ---
Providers Date of admission: 12/18/20 12:35 Expected date of discharge: 12/19/20 Attending physician: Nicky Ward DO Consults: 12/18/20 12:48 Consult Physician Urgent Consulting Provider: [facility] Consult Reason/Comments: chest pain Do you want consulting provider notified?: Yes Primary care physician: Nicol Bain MD Hospital Course: Chief Complaint: Chest pain This is a 75-year-old white female who reported to the hospital with chest pain. Chest pain woke her up around 7 AM. She describes it as burning substernal, similar to heartburn that lasted a little bit longer. It was 10 over 10 in severity but currently it has improved and is down to 6/10. She denies shortness of breath, no dizziness no loss of consciousness. She denies hematuri a dysuria hematemesis or hematochezia. She denies abdominal pain. She denies subjective fever or chills. She denies cough. At the time of examination patient feels better, patient's daughter is at bedside. Hospital course and treatment: Patient was admitted to the hospital with chest pain, she was evaluated by cardiology. Cardiac enzymes were negative. She will undergo a stress test today. If negative she'll be discharged home if cleared by cardiology. Cardiology discontinued Flicanide and resumed oral Eliquis. Patient will follow up with cardiology as an outpatient. Patient Condition at Discharge: Stable Plan - Discharge Summary Discharge Rx Participant: No New Discharge Prescriptions: New Losartan-Hctz 50-12.5 mg [Hyzaar 50-12.5] 1 each PO DAILY #30 tab Apixaban [Eliquis] 5 mg PO BID #180 tab Continue Betamethasone Dipropionate [Diprolene AF 0.05% Cream] 1 applic TOPICAL BID PRN PRN Reason: Rash buPROPion XL [Wellbutrin XL] 300 mg PO DAILY Discharge Medication List Betamethasone Dipropionate [Diprolene AF 0.05% Cream] 1 applic TOPICAL BID PRN 12/18/20 [History] buPROPion XL [Wellbutrin XL] 300 mg PO DAILY 12/18/20 [History] Apixaban [Eliquis] 5 mg PO BID #180 tab 12/19/20 [Rx] Losartan-Hctz 50-12.5 mg [Hyzaar 50-12.5] 1 each PO DAILY #30 tab 12/19/20 [Rx] Follow up Appointment(s)/Referral(s): Ashley Lu MD [STAFF PHYSICIAN] - 2 Weeks Nicol Bain MD [Primary Care Provider] - 1-2 days Discharge Disposition: HOME SELF-CARE Plan of Treatment: Discharged home if stress test is negative and cleared by cardiology
--- NOTE | 2020-12-19 14:33 | ECHOS ---
STRESS ECHOCARDIOGRAM DATE OF SERVICE: 12/19/2020 LUMASON: N/A Vial INDICATIONS: chest pain MEDICATIONS: BASELINE HEART RATE: 88 BASELINE BLOOD PRESSURE: 133/40 MAXIMUM HEART RATE: 142 MAXIMUM BLOOD PRESSURE: 149/48 85% MPHR: 124 100% MPHR: 146 METS: 1.0. MAXIMUM STAGE REACHED: I TOTAL EXERCISE TIME: 2 minutes and 40 seconds CLINICAL INFORMATION: STRESS DATA: Heart rate 88, pressure is 133/40 mmHg. Baseline EKG showed sinus mechanism. The patient exercised on the treadmill according to Demarco protocol for a total of 2 minutes and 40 seconds and achieved who achieved 1.0 METs. Max heart rate was 142 which is about 97% of maximum predicted heart rate. Maximum blood pressure was 149/48 mmHg. Clinically, the patient did not have any symptoms of chest pain or chest discomfort. Developed shortness of breath. The EKG did not show any significant ST or T-wave abnormalities concerning for ischemia. ECHOCARDIOGRAM IMAGES: On echocardiogram images from parasternal long axis view, parasternal short axis, apical 4 chambers and apical 2 chamber were obtained as the baseline images, at the peak of the heart rate valve and on recovery and the echo showed good augmentation in the left ventricular systolic function. CONCLUSION: 1. Poor exercise tolerance. 2. Normal EKG in response to exercise. 3. Normal echocardiogram in response to exercise. MMODL / IJN: [id number] /
[2020-12-19 15:42] VITALS: BP 96/54; PULSE 67; TEMP 98.5
[2020-12-20 00:01] LABS: Chol/HDL Ratio 4.54; LDL Cholesterol,Calculated 173.6 mg/dL (0.0-131.0); VLDL Calculation 24.4 mg/dL (5.00-40.00)
== END 2020-12-19 16:46 | disposition home or self-care (01) ==
LOC: EC 10:33 → 6NMEDSUR 12:35
PROVIDERS: ADMIT Internal Medicine; ATTEND Internal Medicine
DX: R07.89 Other chest pain (principal); R11.0 Nausea; R06.02 Shortness of breath; R42 Dizziness and giddiness; R60.9 Edema, unspecified; R74.8 Abnormal levels of other serum enzymes; I10 Essential (primary) hypertension; E78.5 Hyperlipidemia, unspecified; G47.30 Sleep apnea, unspecified; H91.90 Unspecified hearing loss, unspecified ear; I48.0 Paroxysmal atrial fibrillation; K21.9 Gastro-esophageal reflux disease without esophagitis; L40.9 Psoriasis, unspecified; K59.00 Constipation, unspecified; F32.9 Major depressive disorder, single episode, unspecified; F41.9 Anxiety disorder, unspecified; M19.90 Unspecified osteoarthritis, unspecified site; E66.01 Morbid (severe) obesity due to excess calories; Z68.41 Body mass index [BMI] 40.0-44.9, adult; M10.9 Gout, unspecified; T46.6X6A Underdosing of antihyperlipidemic and antiarteriosclerotic drugs, initial encounter; Z91.128 Patient's intentional underdosing of medication regimen for other reason; Z91.19 Patient's noncompliance with other medical treatment and regimen; Z20.822 Contact with and (suspected) exposure to COVID-19; Z99.89 Dependence on other enabling machines and devices; Z87.440 Personal history of urinary (tract) infections; I83.90 Asymptomatic varicose veins of unspecified lower extremity; Z98.1 Arthrodesis status; Z96.651 Presence of right artificial knee joint; Z79.899 Other long term (current) drug therapy; Z79.01 Long term (current) use of anticoagulants; Z79.891 Long term (current) use of opiate analgesic; Z88.8 Allergy status to other drugs, medicaments and biological substances; Z84.89 Family history of other specified conditions; Z82.69 Family history of other diseases of the musculoskeletal system and connective tissue; Z82.49 Family history of ischemic heart disease and other diseases of the circulatory system; Z80.9 Family history of malignant neoplasm, unspecified
CPT/HCPCS: 96374; 96375; 99285; 36415; 93005; 93306; 93351; 83880; 80061; 80053; 83690; 83735; 84484; 85025; 85610; 85730; 87635; 71046; G0378 ×2; J2405; J2270

== ENCOUNTER → 2021-01-17 | Outpatient (CLI) | payer MEDICARE ==
--- NOTE | 2021-01-22 09:39 | MM ---
Reason for exam: screening (asymptomatic). Last mammogram was performed 7 years and 6 months ago. History: Patient is postmenopausal. Family history of breast cancer in aunt at age 83 and breast cancer in grandmother. Benign excisional biopsy of the right breast, 1980. Physical Findings: A clinical breast exam by your physician is recommended on an annual basis and results should be correlated with mammographic findings. MG 3D Screening Mammo W/Cad Bilateral CC and MLO view(s) were taken. Prior study comparison: July 06, 2013, bilateral digital screening mammo w/CAD. May 25, 2010, bilateral digital screening mammogram. There are scattered fibroglandular densities. Right asymmetry superior posterior depth MLO view. ASSESSMENT: Incomplete: need additional imaging evaluation, BI-RAD 0 RECOMMENDATION: Special view mammogram of the right breast. If lesion persists on supplemental views, image directed ultrasound is recommended. [facility] will attempt to contact patient to return for supplemental views and ultrasound if indicated.
== END | disposition home or self-care (01) ==
LOC: RADMAMWWP 15:25
PROVIDERS: ATTEND Family Medicine
DX: Z12.31 Encounter for screening mammogram for malignant neoplasm of breast (principal); Z78.0 Asymptomatic menopausal state; Z80.3 Family history of malignant neoplasm of breast
CPT/HCPCS: 77063; 77067

== ENCOUNTER → 2021-01-31 | Outpatient (CLI) | payer MEDICARE ==
--- NOTE | 2021-01-31 09:44 | MM ---
Reason for exam: additional evaluation requested from abnormal screening. Last mammogram was performed less than 1 month ago. History: Patient is postmenopausal. Family history of breast cancer in aunt at age 83 and breast cancer in grandmother. Benign excisional biopsy of the right breast, 1980. Physical Findings: Nurse did not find any significant physical abnormalities on exam. MG 3D Work Up W/Cad RT LM and spot compression MLO view(s) were taken of the right breast. Prior study comparison: January 17, 2021, bilateral MG 3d screening mammo w/cad. July 06, 2013, bilateral digital screening mammo w/CAD. There are scattered fibroglandular densities. Asymmetry right breast superior posterior depth most likely benign asymmetry/overlap. These results were verbally communicated with the patient and result sheet given to the patient on 01/31/21. ASSESSMENT: Benign, BI-RAD 2 RECOMMENDATION: Return to routine screening mammogram schedule for both breasts.
== END | disposition home or self-care (01) ==
LOC: RADMAMWWP 08:09
PROVIDERS: ATTEND Family Medicine
DX: N64.89 Other specified disorders of breast (principal); Z78.0 Asymptomatic menopausal state; Z80.3 Family history of malignant neoplasm of breast
CPT/HCPCS: 77065; G0279; 77061

== ENCOUNTER → 2021-04-30 | Outpatient (CLI) | payer MEDICARE ==
[2021-04-30 13:26] LABS: Basophils # (A) 0.1 k/uL (0-0.2); Basophils % (A) 1 %; Eosinophils # (A) 0.1 k/uL (0-0.7); Eosinophils % (A) 2 %; HGB 17.5 gm/dL (11.4-16.0); Lymphocytes # (A) 1.6 k/uL (1.0-4.8); Lymphocytes % (A) 24 %; MCH 32.9 pg (25.0-35.0); MCHC 33.7 g/dL (31.0-37.0); MCV 97.5 fL (80.0-100.0); Mean Platelet Volume 8.3; Monocytes # (A) 0.3 k/uL (0-1.0); Monocytes % (A) 5 %; Neutrophils # (A) 4.3 k/uL (1.3-7.7); Neutrophils % (A) 67 %; Platelet Count 300 k/uL (150-450); RBC 5.33 m/uL (3.80-5.40); RDW 13.1 % (11.5-15.5); WBC 6.4 k/uL (3.8-10.6)
[2021-04-30 13:31] LABS: Potassium 4.9 mmol/L (3.5-5.1)
[2021-04-30 13:42] LABS: INR 0.9 (<1.2); Prothrombin Time 9.8 sec (9.0-12.0)
== END | disposition home or self-care (01) ==
LOC: LABPAT 12:43
PROVIDERS: ATTEND Orthopaedic Surgery
DX: Z01.812 Encounter for preprocedural laboratory examination (principal); M17.12 Unilateral primary osteoarthritis, left knee; Z22.322 Carrier or suspected carrier of Methicillin resistant Staphylococcus aureus
CPT/HCPCS: 36415; 80051; 85025; 85610; 87070

== ENCOUNTER 2021-05-14 13:32 | Observation (INO) | payer MEDICARE ==
[2021-05-10 12:04] VITALS: BMI 46.0
--- NOTE | 2021-05-13 11:13 | HP ---
HISTORY AND PHYSICAL DATE OF SURGERY: 05/14/2021 Kat Pritchard is a 75-year-old patient seen with symptomatic left knee osteoarthritis. We discussed options for treatment. She elected to proceed with left total knee arthroplasty. Consent regarding the procedure was obtained. Clearance was provided by Dr. Bain. PAST MEDICAL HISTORY: Hypertension, gastroesophageal reflux disease. PAST SURGICAL HISTORY: Lumbar spine surgery, bilateral total hip arthroplasty, left knee arthroscopy. DAILY MEDICATIONS: Colchicine, omeprazole. ALLERGIES: NONE. SOCIAL HISTORY: She denies tobacco use. PHYSICAL EVALUATION OF THE LEFT KNEE: Her range of motion is negative 3 to 90. Mild effusion. Tenderness along the medial and lateral joint lines. Crepitus along the medial, lateral and patellofemoral compartments. Pain with patellofemoral compression. Ligaments stable. Hip rotation without pain. Distal neurovascular exam intact. RADIOGRAPHS: Left knee radiographs revealed severe osteoarthritic changes. IMPRESSION: 1. Left knee osteoarthritis. 2. Hypertension. 3. Gastroesophageal reflux disease. PLAN: Left total knee arthroplasty. MMODL / IJN: [id number] /
[~2021-05-14 13:32] MED LIST changes: -ACETAMINOPHEN TAB 500 MG TAB PO ONE; +ACETAMINOPHEN TAB 500 MG TAB PO PRN; -DEXAMETHASONE SOD PHOSPHATE 10 MG/ML 1 ML VIAL IV ONE; +DEXAMETHASONE SOD PHOSPHATE 4 MG/ML 1 ML VIAL IV ONE; -MELOXICAM 7.5 MG TAB PO ONE; +MELOXICAM 7.5 MG TAB PO PRN; -MIDAZOLAM (PF) 2 MG/2 ML VIAL IV PRN; +MIDAZOLAM 2 MG/2 ML VIAL IV PRN; +ROPIVACAINE/EPI/CLONIDINE/KET 50 ML SYRINGE MISCELLANE PRN; -TRANEXAMIC ACID 1,000 MG in SODIUM CHLORIDE 0.9% 100 ML IVPB ONE; +TRANEXAMIC ACID 1,000 MG in SODIUM CHLORIDE 0.9% 100 ML IVPB PRN; -ceFAZolin 3 GM in SODIUM CHLORIDE 0.9% 100 ML IVPB ONE
[2021-05-14] MEDS ORDERED: LIDOCAINE 1% (10MG/ML) FOR IV START INTRADERMA ONE (14:20)
[2021-05-14] MEDS: LACTATED RINGERS 1,000 ML IV SCH (14:20)
[2021-05-14] MEDS ORDERED: fentaNYL (PF) 50 MCG/ML 2 ML AMP IV ONE (14:51)
[2021-05-14 15:02] LABS: Prothrombin Time 10.6 sec (9.0-12.0)
[2021-05-14] MEDS ORDERED: HYDROmorphone (PF) 1 MG/ML ONE (15:03)
[2021-05-14] MEDS ORDERED: PROPOFOL 10 MG/ML 20 ML VIAL IV ONE (15:03)
[2021-05-14] MEDS ORDERED: SUCCINYLCHOLINE CHLORIDE 100 MG/5 ML SYR IV ONE (15:03)
[2021-05-14] MEDS ORDERED: ROCURONIUM 10 MG/ML (5 ML VIAL) IV ONE (15:03)
[2021-05-14] MEDS ORDERED: GLYCOPYRROLATE 0.2 MG/ML 2 ML VIAL ONE (15:03)
[2021-05-14] MEDS ORDERED: SODIUM CHLORIDE 0.9% (PF) 10 ML VIAL ONE (15:03)
[2021-05-14] MEDS ORDERED: TRANEXAMIC ACID 1,000 MG/10 ML VIAL ONE (15:03)
[2021-05-14] MEDS ORDERED: fentaNYL (PF) 50 MCG/ML 2 ML AMP ONE (15:03)
[2021-05-14] MEDS ORDERED: NEOSTIGMINE 1 MG/ML 10 ML VIAL ONE (15:03)
[2021-05-14] MEDS ORDERED: LIDOCAINE 1% INJ 10MG/ML (20 ML MDV) ONE (15:03)
[2021-05-14] MEDS ORDERED: MIDAZOLAM 2 MG/2 ML VIAL ONE (15:03)
[2021-05-14] MEDS ORDERED: SODIUM CHLORIDE 0.9% 100 ML BAG ONE (15:03)
[2021-05-14] MEDS ORDERED: ROPIVACAINE 5 MG/ML 30 ML VIAL ONE (15:03)
--- NOTE | 2021-05-14 15:37 | P.ANPRN ---
Procedure Note - Anesthesia - Nerve Block Performed Left Adductor Canal Infusion Time Out Performed: Yes (1449) Date of Procedure: 05/14/21 Procedure Start Time: 14:51 Procedure Stop Time: 14:56 Location of Patient: PreOp Indication: Acute Post-Operative Pain, Requested by Surgeon Specifically requested for management of pain by DrSarah: Theo Ozuna Sedation Type: Sedate with meaningful contact maintained Preparation: Sterile Prep, Sterile Dressing Position: Supine Catheter Depth at Skin (cm): 10 Catheter: Indwelling Needle Types: Pajunk Needle Gauge: 21 Ultrasound used to visualize needle placement: Yes Ultrasound used to observe medication spread: Yes Injectate: 0.5% Ropivacaine (see comment for volume) (15cc + nacl pf 5cc) Blood Aspirated: No Pain Paresthesia on Injection Noted: No Resistance on Injection: Normal Image Stored and Saved: Yes Events: Uneventful and Well Tolerated Left iPack Single Time Out Performed: Yes (1449) Date of Procedure: 05/14/21 Procedure Start Time: 14:57 Procedure Stop Time: 15:02 Location of Patient: PreOp Indication: Acute Post-Operative Pain, Requested by Surgeon Specifically requested for management of pain by DrSarah: Theo Ozuna Sedation Type: Sedate with meaningful contact maintained Preparation: Sterile Prep Position: Supine Catheter: None Needle Types: Pajunk Needle Gauge: 21 Ultrasound used to visualize needle placement: Yes Ultrasound used to observe medication spread: Yes Injectate: 0.5% Ropivacaine (see comment for volume) (15cc + nacl pf 5cc) Blood Aspirated: No Pain Paresthesia on Injection Noted: No Resistance on Injection: Normal Image Stored and Saved: Yes Events: Uneventful and Well Tolerated
[2021-05-14] MEDS ORDERED: LACTATED RINGERS 1,000 ML IV ONE ×2 (16:28→18:24)
[2021-05-14] MEDS ORDERED: NALOXONE 0.4 MG/ML 1 ML VIAL IV PRN (17:21)
[2021-05-14] MEDS ORDERED: HYDROcodone/APAP 5-325MG 1 EACH TAB PO PRN (17:21)
[2021-05-14] MEDS ORDERED: ONDANSETRON 4 MG/2 ML VIAL IVP PRN (17:21)
[2021-05-14] MEDS ORDERED: HYDROmorphone 0.2 MG/1 ML SYRINGE IVP PRN (17:21)
[2021-05-14] MEDS ORDERED: HYDROmorphone 0.5 MG/0.5 ML SYRINGE IVP PRN (17:21)
--- NOTE | 2021-05-14 17:21 | P.OP ---
Date of Procedure: 05/14/21 Preoperative Diagnosis: Left knee osteoarthritis Postoperative Diagnosis: Left knee osteoarthritis Procedure(s) Performed: Left total knee arthroplasty Implants: 1. Depuy attune size 7 left cruciate-retaining cemented femur 2. Depuy attune size 7 fixed bearing cemented revision tibial baseplate with a 14 mm x 50 mm stem 3. Depuy attune size 7 fixed bearing cruciate retaining 10 mm polyethylene tibial insert 4. Depuy attune 38 mm all polyethylene cemented patella Anesthesia: GETA, regional (Adductor canal catheter, Ipack block) Surgeon: Theo Ozuna Jacquard Loom Weaver #1: Isaias Davila Estimated Blood Loss (ml): 60 Pathology: other (Bone) Condition: stable Disposition: PACU Indications for Procedure: 75-year-old patient seen with symptomatic left knee osteoarthritis. After treatment options were discussed, she elected to proceed with total knee arthroplasty. Operative Findings: See description of procedure Description of Procedure: Patient was taken to the operative suite after having an adductor canal catheter placed by the department of anesthesia as well as and Ipack block for postoperative pain management. Patient underwent a general anesthetic by the department of anesthesia. Patient was given preoperative IV intake antibiotics and TXA. A well-padded tourniquet was placed about the left lower extremity. The lower extremity was then prepped and draped in the normal sterile orthopedic fashion. The extremity was elevated, a tourniquet was insufflated to 300. A standard anterior incision was made sharply through skin. Dissection was taken down through the subcutaneous soft tissues down to the extensor mechanism. A medial arthrotomy was performed, patella was everted and knee was flexed. There was advanced osteoarthritis noted. I introduced my distal intramedullary femoral drill. I then introduced the distal femoral cutting jig. Samson WILLARD secured the cutting jig with 2 pins. I held retractors in position while Samson WILLARD performed the distal femoral resection through the guide area we now removed her distal femoral cutting guide. We now placed our 4-in-1 femoral cutting block and positioned and it was secured with 2 pins by Samson WILLARD while I held the block in position. The distal femoral finishing was now completed. A proximal tibial cutting guide was positioned. I held the guide in the appropriate position with both hands well Samson WILLARD inserted stabilizing pins into the guide. Proximal tibial cut was made. We now placed a trial femoral component into position, along with an appropriate size tibial tray and insert. We now took the knee through range of motion and had full extension good flexion and good overall soft tissue balance noted. The patella was everted and stabilized with 2 towel clips held by Samson WILLARD while I performed a flush with patellar quad tendon utilizing a fresh sawblade. We templated the patella, appropriate drill holes were made. An appropriate trial patella was positioned, knee was taken through full range of motion with the patella tracking very nicely. The trial patella was removed. Drill holes were made through the femoral component. All trial components were removed after marking off the appropriate rotation of the tibia. Retractors were now positioned along the proximal tibia. An appropriate keel punch was made with the appropriate size tibial guide by myself on Samson WILLARD assisted by holding retractors. At this point appropriate size implants were chosen and opened. The joint was irrigated copiously with pulse lavage mechanical irrigation. The posterior capsule was infiltrated with local analgesic. The wound was irrigated with pulse lavage mechanical irrigation. We mixed antibiotic methylmethacrylate. We placed the knee into flexion. We placed multiple retractors assisted by aSmson WILLARD to expose the proximal tibia. Once the methyl methacrylate was ready, the tibial component was cemented into place removing any excess methylmethacrylate form by both myself and Samson WILLARD. The femoral component was cemented into place removing the removing any excess methylmethacrylate performed by both myself and Samson WILLARD. We then inserted the appropriate size polyethylene tibial insert. We made sure that it was locked into position. We took the knee into full extension, and then back in a flexion making sure we had removed any excess methylmethacrylate. The patellar component was then cemented down and secured with clamp. Excess methylmethacrylate removed. We kept the knee in full extension, patellar clamp in position until methylmethacrylate had hardened. Once it had hardened the patellar clamp was removed. The knee was taken through full range of motion. The patella tracked nicely. There was good soft tissue balancing. The tourniquet was now released. Additional hemostasis was achieved via electrocautery. A second gram of TXA was given. The wound again was irrigated with pulse lavage mechanical irrigation. The superficial soft tissues were infiltrated local analgesic. The extensor mechanism was repaired with Ethibond. We checked the repair with range of motion and it was stable. The subcutaneous soft tissues were repaired with Vicryl in layers. The skin was approximated with pernio/Dermabond. Sterile dressings were applied followed by loose web roll and Boni bandage. The patient was transferred to a bed, and taken to recovery in stable and satisfactory condition. Samson WILLARD assisted with this complex procedure.
[2021-05-14] MEDS ORDERED: ROPIVACAINE 0.2%-NS ON-Q PUMP 1,090 MG, EMPTY PAIN BALL 1 EACH MISCELLANE PRN (17:48)
[2021-05-14] MEDS: HYDROmorphone 0.5 MG/0.5 ML SYRINGE IVP PRN ×3 (17:52→18:18)
--- NOTE | 2021-05-14 18:23 | XR ---
EXAMINATION TYPE: XR knee limited LT DATE OF EXAM: 05/14/2021 COMPARISON: NONE HISTORY: Knee surgery TECHNIQUE: 2 views FINDINGS: There is left knee prosthesis. Components appear in good position. There is anterior skin s taples. IMPRESSION: No complicating process seen.
[2021-05-14] MEDS ORDERED: HYDROmorphone 0.5 MG/0.5 ML SYRINGE IVP ONE ×2 (18:35)
[2021-05-14] MEDS ORDERED: LABETALOL 5 MG/ML VIAL MDV IVP ONE (18:43)
[2021-05-14] MEDS: SODIUM CHLORIDE 0.9% 1,000 ML IV SCH (21:02)
[2021-05-14] MEDS: SENNOSIDES-DOCUSATE SODIUM 1 EACH TAB PO SCH (21:55)
--- NOTE | 2021-05-14 22:35 | P.CONS ---
History of Present Illness - Reason for Consult Consult date: 05/14/21 post op medical management Requesting physician: Theo Ozuna - Chief Complaint knee osteoarthritis - History of Present Illness 75 year old female with P.afib, HTN, HLD, Osteoarthritis patient comes in for scheduled left total knee arthroplasty , tolerated procedure well, no observed immediate post op complications. denies any chest pain or trouble breathing , no coughing no abd pain , no nausea or vomiting. she does feel cold since she came back from surgery , she did not eat yet or walk , as she just arrived back from surgery she otherwise describe her health as good, denies any GI bleeding or URI symptoms at home. currently pain well controlled and patient has no complaints Review of Systems Pertinent positives as noted in HPI. All other systems were reviewed and are negative Past Medical History Past Medical History: Atrial Fibrillation, GERD/Reflux, Hearing Disorder / De afness, Hyperlipidemia, Hypertension, Osteoarthritis (OA), Skin Disorder, Sleep Apnea/CPAP/BIPAP Additional Past Medical History / Comment(s): Psoriasis. supposed to use CPAP. VARICOSE VEINS. History of Any Multi-Drug Resistant Organisms: None Reported Past Surgical History: Back Surgery, Joint Replacement, Orthopedic Surgery, Tubal Ligation Additional Past Surgical History / Comment(s): ORIF RT Arm; PLATE REMOVED. LUH KNEE SCOPES. SPINAL FUSION., right knee replacement, fusion L1/L2, right total hip Past Anesthesia/Blood Transfusion Reactions: Family History of Problems w/ Anesthesia, Motion Sickness, Postoperative Nausea & Vomiting (PONV) Additional Past Anesthesia/Blood Transfusion Reaction / Comm: SISTER WAS ON VENTILATOR AFTER SURGERY, SHE ALSO HAD LUPUS. Smoking Status: Never smoker - Past Family History Brother(s) Family Medical History: Cancer Additional Family Medical History / Comment(s): 2 BROTHERS = CANCER Mother Additional Family Medical History / Comment(s): leaky heart valve Father Additional Family Medical History / Comment(s): Artery broke Medications and Allergies Home Medications Medication Instructions Recorded Confirmed Type Betamethasone Dipropionate 1 applic TOPICAL BID PRN 12/18/20 05/10/21 History [Diprolene AF 0.05% Cream] buPROPion XL [Wellbutrin XL] 300 mg PO DAILY 12/18/20 05/10/21 History Losartan-Hctz 50-12.5 mg [Hyzaar 1 each PO DAILY #30 tab 12/19/20 05/10/21 Rx 50-12.5] Omeprazole 20 mg PO DAILY 05/10/21 05/10/21 History Warfarin [Coumadin] 5 mg PO DAILY 05/10/21 05/10/21 History Allergies Allergy/AdvReac Type Severity Reaction Status Date / Time duloxetine [From Cymbalta] Allergy Rash/Hives Verified 05/14/21 14:03 famotidine Allergy Rash/Hives Verified 05/14/21 14:03 Physical Exam Vitals: Vital Signs Temp Pulse Resp BP Pulse Ox 05/14/21 19:07 73 14 156/70 96 05/14/21 18:54 71 14 144/72 94 L 05/14/21 18:45 88 14 155/70 95 05/14/21 18:38 106 H 16 163/74 99 05/14/21 18:33 103 H 14 166/80 94 L 05/14/21 18:27 102 H 14 148/65 94 L 05/14/21 18:19 106 H 14 154/67 93 L 05/14/21 18:14 89 16 187/74 94 L 05/14/21 18:00 102 H 14 175/79 05/14/21 17:57 103 H 14 185/83 96 05/14/21 17:45 97.9 F 114 H 16 187/89 97 05/14/21 14:13 97 F L 91 16 136/67 95 Intake and Output 05/14/21 05/14/21 05/14/21 06:59 14:59 22:59 Intake Total 400 1650 Output Total 60 Balance 400 1590 Intake: IV 400 1650 Output: Estimated Blood Loss 60 Other: Weight 118.7 kg Constitutional: No acute distress, conversant, pleasant Eyes: Anicteric sclerae, moist conjunctiva, Pupils equal round reactive to light ENMT: NC/AT Oropharynx clear, no erythema, or exudates Neck: Supple, FROM, no masses, or JVD No carotid bruits No thyromegaly Lungs: Clear to auscultation Clear to percussion Normal respiratory effort, no accessory muscle use Cardiovascular: Heart regular in rate and rhythm, No murmurs, gallops, or rubs No peripheral edema Abdominal: Soft Nontender, no guarding, rebound or rigidity Abdomen moving with respiration Normoactive bowel sounds No hepatomegaly, No splenomegaly No palpable mass No abdominal wall hernia noted Skin: Normal temperature, tone, texture, turgor No induration No subcutaneous nodules No rash, lesions No ulcers Extremities: No digital cyanosis No clubbing Pedal pulses intact and symmetrical Radial pulses intact and symmetrical No calf tenderness Psychiatric: Alert and oriented to person, place and time Appropriate affect fair judgement Neuro Muscles Strength 4/5 in all 4 extremities , limited exam over left knee due to recent surgery Sensation to light touch grossly present throughout Cranial nerves II-XII grossly intact No focal sensory deficits Lymphatics: no palpable cervical or supraclavicular , or inguinal lymph nodes Assessment and Plan Assessment: uncontrolled hypertension resume home BP meds clonidine 0.2 mg po TID PRN for systolic blood pressure>180 P. afib , coumadin on hold due to surgery resume coumadin once cleared by surgery knee osteoarthritis, s/p left total knee replacement , POD zero pain control and DVT PPX per orthopedics follow up CBC and BMP Thank you for allowing us to participate in the care of this patient. Do not hesitate to contact us with questions. Someone can be reached from the [facility] hospitalist group at all hours of the day at [phone].
[2021-05-14] MEDS: HYDROcodone/APAP 7.5-325MG 1 EACH TAB PO PRN (23:13)
[2021-05-15] MEDS: HYDROmorphone 0.5 MG/0.5 ML SYRINGE IVP PRN ×2 (02:21→07:29)
[2021-05-15] MEDS: LACTATED RINGERS 1,000 ML IV SCH (05:03)
--- NOTE | 2021-05-15 07:04 | P.PN ---
Progress Note - Text Progress Note Date: 05/15/21 (375) Anesthesiology Postop day 1 status post total knee arthroplasty with adductor canal catheter. Patient doing well. VAS [0] out of 10tolerable. [Gross strength intact in lower extremity]. [Afebrile]. [Denies alterations in sensorium]. [Catheter site intact]. Heart [regular rate] Lungs [nonlabored] Abdomen [nondistended] Assessment: Postop day [1] status post total knee arthroplasty with adductor canal catheter Plan: All questions answered. Maintain catheter [2] more days with patient removal at home. Instructions were given at discharge.[]
[2021-05-15] MEDS: LOSARTAN-HCTZ 50-12.5 MG 1 EACH TAB PO SCH (07:28)
[2021-05-15] MEDS: ENOXAPARIN 30 MG/0.3 ML SYRINGE SQ SCH ×2 (07:28→20:12)
[2021-05-15] MEDS: SODIUM CHLORIDE 0.9% 1,000 ML IV SCH (07:28)
[2021-05-15] MEDS: buPROPion XL 300 MG TAB.ER.24H PO SCH (07:28)
[2021-05-15] MEDS: PANTOPRAZOLE 40 MG TABLET PO SCH (07:29)
[2021-05-15] MEDS ORDERED: BENZOCAINE/MENTHOL LOZENG 1 EACH LOZENGE MUCOUS MEM PRN (07:32)
--- NOTE | 2021-05-15 07:58 | P.PN ---
Subjective Progress Note Date: 05/15/21 Principal diagnosis: status post left total knee arthroplasty Patient is evaluated today at bedside, she is resting in her hospital bed eating breakfast. Patient states that she is having some soreness throughout the left knee. She is quite nauseous morning also. She has been up ambulating at this time with therapy. Currently denies any headaches, lightheadedness, chest pain or shortness of breath. Objective - Vital Signs Vital signs: Vital Signs Temp 97.9 F 05/15/21 07:42 Pulse 87 05/15/21 07:42 Resp 16 05/15/21 07:42 BP 137/75 05/15/21 07:42 Pulse Ox 90 L 05/15/21 07:42 Intake & Output 05/14/21 05/15/21 05/15/21 18:59 06:59 18:59 Intake Total 2049 1200 Output Total 60 Balance 1989 1199 Weight 118.7 kg 118.7 kg Intake: IV 2049 Intake, IV Titration 100 Amount ceFAZolin 2 gm In Sodium 100 Chloride 0.9% 50 ml @ 100 mls/hr IVPB Q8HR [facility] Rx# :[id number] Oral 1100 Output: Estimated Blood Loss 60 Other: # Voids 2 - Exam Left lower extremity: Incision is clean, dry, and intact. The foam dressing is in good condition. There is minimal soft tissue swelling and ecchymosis surrounding the medial and lateral aspects of the incision. Calf is soft, no tenderness with palpation. Plantar flexion, dorsiflexion, EHL, FHL are intact. Sensory exam to light touch throughout the extremity is intact, dorsal pedis pulses 2+. Assessment and Plan Assessment: Postop day #1 status post left total knee arthroplasty Plan: Pain control, continue current medication GI and DVT prophylaxis, continue subcu medication until INR is therapeutic. Coumadin has been restarted today Wound care instructions were discussed with patient Encouraged incentive spirometer Icing and elevating techniques discussed Continue work with physical therapy Medical recommendations Discharge planning: Anticipate additional night stay to deal with nausea and pain control, will reassess Time with Patient: Less than 30
[2021-05-15] MEDS: PREGABALIN 75 MG CAP PO SCH ×2 (08:48→20:11)
[2021-05-15 09:38] LABS: Basophils # (A) 0.02 X 10*3/uL (0.00-0.10); Basophils % (A) 0.2 %; Eosinophils # (A) 0 X 10*3/uL (0.04-0.35); Eosinophils % (A) 0 %; HGB 13.9 g/dL (12.0-15.0); Lymphocytes # (A) 1.33 X 10*3/uL (0.90-5.00); Lymphocytes % (A) 11.7 %; MCH 32.3 pg (27.0-32.0); MCHC 33.9 g/dL (32.0-37.0); MCV 95.1 fL (80.0-97.0); Mean Platelet Volume 11.2 fL (9.5-12.2); Monocytes # (A) 0.86 X 10*3/uL (0.20-1.00); Monocytes % (A) 7.6 %; Neutrophils # (A) 9.13 X 10*3/uL (1.80-7.70); Neutrophils % (A) 80.1 %; Platelet Count 244 X 10*3/uL (140-440); RBC 4.31 X 10*6/uL (4.10-5.20); RDW 12.5 % (11.5-14.5); WBC 11.38 X 10*3/uL (4.50-10.00)
[2021-05-15 10:34] LABS: Prothrombin Time 10.5 sec (9.0-12.0)
[2021-05-15] MEDS: HYDROcodone/APAP 7.5-325MG 1 EACH TAB PO PRN ×3 (10:51→22:55)
--- NOTE | 2021-05-15 12:51 | P.PN ---
Subjective Progress Note Date: 05/15/21 Patient had some nausea, pain. She has not vomited. She is working well with PT/OT. Doing well postoperatively otherwise. Objective - Vital Signs Vital signs: Vital Signs Temp 97.9 F 05/15/21 07:42 Pulse 87 05/15/21 07:42 Resp 18 05/15/21 12:36 BP 137/75 05/15/21 07:42 Pulse Ox 90 L 05/15/21 07:42 Intake & Output 05/14/21 05/15/21 05/15/21 18:59 06:59 18:59 Intake Total 2049 1200 Output Total 60 Balance 1989 1199 Weight 118.7 kg 118.7 kg Intake: IV 2049 Intake, IV Titration 100 Amount ceFAZolin 2 gm In Sodium 100 Chloride 0.9% 50 ml @ 100 mls/hr IVPB Q8HR [facility] Rx# :[id number] Oral 1100 Output: Estimated Blood Loss 60 Other: # Voids 2 - Exam Gen: awake, alert HEENT: normocephalic, atraumatic, good hearing acuity, moist mucous membranes Resp: good air exchange, breathing comfortably with no accessory muscle use CVS: good distal perfusion x 4, GI: soft, NTTP, ND : no SPT, no CVAT, valencia catheter not present MSK: no pitting edema, no clubbing Neuro: non-focal, moving all extremities Psych: cooperative, euthymic mood - Labs CBC & Chem 7: 05/15/21 06:07 Labs: Abnormal Lab Results - Last 24 Hours (Table) 05/15/21 Range/Units 06:07 WBC 11.38 H (4.50-10.00) X 10*3/uL MCH 32.3 H (27.0-32.0) pg Neutrophils # 9.13 H (1.80-7.70) X 10*3/uL Eosinophils # 0 L (0.04-0.35) X 10*3/uL Assessment and Plan Assessment: uncontrolled hypertension resume home BP meds clonidine 0.2 mg po TID PRN for systolic blood pressure>180 P. afib , Would recommend starting Eliquis, and offer 30 day free coupon, patient plans to transition to Coumadin as an outpatient at a later point knee osteoarthritis, s/p left total knee replacement , POD zero pain control and DVT PPX per orthopedics follow up CBC and BMP on 05/16 Thank you for allowing us to participate in the care of this patient. Do not hesitate to contact us with questions. Someone can be reached from the [facility] hospitalist group at all hours of the day at [phone].
[2021-05-15] MEDS ORDERED: WARFARIN 5 MG TAB PO ONE (18:00)
[2021-05-15] MEDS: traMADol 50 MG TAB PO PRN (20:11)
[2021-05-15] MEDS: SENNOSIDES-DOCUSATE SODIUM 1 EACH TAB PO SCH (20:12)
[2021-05-16] MEDS: HYDROcodone/APAP 7.5-325MG 1 EACH TAB PO PRN ×2 (05:50→14:52)
[2021-05-16] MEDS: LACTATED RINGERS 1,000 ML IV SCH (06:44)
[2021-05-16] MEDS: SODIUM CHLORIDE 0.9% 1,000 ML IV SCH (06:46)
[2021-05-16 07:16] LABS: Sodium 135 mmol/L (137-145)
[2021-05-16 07:17] LABS: African American GFR (CKD) 75 (>60 ml/min/1.73 sqM); Anion Gap 7 mmol/L; Blood Urea Nitrogen 15 mg/dL (7-17); Calcium 8.8 mg/dL (8.4-10.2); Carbon Dioxide 25 mmol/L (22-30); Chloride 103 mmol/L (98-107); Glucose 114 mg/dL (74-99); Magnesium 1.9 mg/dL (1.6-2.3); Non-African American GFR(CKD) 65 (>60 ml/min/1.73 sqM); Potassium 4.2 mmol/L (3.5-5.1)
[2021-05-16] MEDS: ENOXAPARIN 30 MG/0.3 ML SYRINGE SQ SCH ×2 (07:17→21:50)
[2021-05-16] MEDS: buPROPion XL 300 MG TAB.ER.24H PO SCH (07:17)
[2021-05-16] MEDS: PREGABALIN 75 MG CAP PO SCH ×2 (07:17→21:50)
[2021-05-16] MEDS: LOSARTAN-HCTZ 50-12.5 MG 1 EACH TAB PO SCH (07:17)
[2021-05-16] MEDS: PANTOPRAZOLE 40 MG TABLET PO SCH (07:18)
[2021-05-16 07:31] LABS: INR 1.1 (<1.2); Prothrombin Time 11.9 sec (9.0-12.0)
--- NOTE | 2021-05-16 09:06 | P.PN ---
Subjective Progress Note Date: 05/16/21 Principal diagnosis: status post left total knee arthroplasty Patient is evaluated today at bedside, she is resting in her hospital bed. Patient was having increasing pain last night, I did adjust the oral medications. She states that she is having some trouble with ambulating with a walker. Physical therapy did work with the patient yesterday in no acute events are noted. Currently denies any headaches, lightheadedness, chest pain or shortness of breath. Objective - Vital Signs Vital signs: Vital Signs Temp 98.7 F 05/16/21 07:05 Pulse 94 05/16/21 07:05 Resp 18 05/16/21 08:00 BP 133/70 05/16/21 07:05 Pulse Ox 92 L 05/16/21 07:05 Intake & Output 05/15/21 05/16/21 05/16/21 18:59 06:59 18:59 Intake Total 540 Output Total 480 Balance -480 540 Intake: Oral 540 Output: Urine 480 Other: Voiding Method Toilet Toilet # Voids 2 2 - Exam Left lower extremity: Incision is clean, dry, and intact. The foam dressing is in good condition. There is minimal soft tissue swelling and ecchymosis surrounding the medial and lateral aspects of the incision. Calf is soft, no tenderness with palpation. Plantar flexion, dorsiflexion, EHL, FHL are intact. Sensory exam to light touch throughout the extremity is intact, dorsal pedis pulses 2+. - Labs CBC & Chem 7: 05/15/21 06:07 05/16/21 05:56 Labs: Abnormal Lab Results - Last 24 Hours (Table) 05/15/21 05/16/21 Range/Units 06:07 05:56 WBC 11.38 H (4.50-10.00) X 10*3/uL MCH 32.3 H (27.0-32.0) pg Neutrophils # 9.13 H (1.80-7.70) X 10*3/uL Eosinophils # 0 L (0.04-0.35) X 10*3/uL Sodium 135 L (137-145) mmol/L Glucose 114 H (74-99) mg/dL Assessment and Plan Assessment: Postop day #12tatus post left total knee arthroplasty Plan: Pain control, continue use of the oral [place] and tramadol. Lyrica 75 mg. He has also been added. GI and DVT prophylaxis, INR remained subtherapeutic. Continue the Coumadin dose along with Lovenox, patient will likely need Lovenox at discharge. Wound care instructions were discussed with patient Encouraged incentive spirometer Icing and elevating techniques discussed Continue work with physical therapy Medical recommendations Discharge planning: Likely discharge to home on 05/17/2021 Time with Patient: Less than 30
[2021-05-16 09:36] LABS: Basophils # (A) 0.03 X 10*3/uL (0.00-0.10); Basophils % (A) 0.4 %; Eosinophils # (A) 0.03 X 10*3/uL (0.04-0.35); Eosinophils % (A) 0.4 %; HCT 39.7 % (37.2-46.3); HGB 13.1 g/dL (12.0-15.0); Lymphocytes # (A) 1.46 X 10*3/uL (0.90-5.00); Lymphocytes % (A) 17.1 %; MCH 31.7 pg (27.0-32.0); MCV 96.1 fL (80.0-97.0); Mean Platelet Volume 11.2 fL (9.5-12.2); Monocytes # (A) 1.06 X 10*3/uL (0.20-1.00); Monocytes % (A) 12.4 %; Neutrophils # (A) 5.93 X 10*3/uL (1.80-7.70); Neutrophils % (A) 69.2 %; Platelet Count 203 X 10*3/uL (140-440); RBC 4.13 X 10*6/uL (4.10-5.20); RDW 13.1 % (11.5-14.5); WBC 8.55 X 10*3/uL (4.50-10.00)
[2021-05-16] MEDS ORDERED: WARFARIN 5 MG TAB PO ONE (18:00)
--- NOTE | 2021-05-16 20:41 | P.PN ---
Subjective Progress Note Date: 05/16/21 ([facility] charting seen at 1015) Principal diagnosis: knee pain Patient is a 75-year-old female with a history of paroxysmal A. fib, hypertension, and dyslipidemia who presented for left total knee. Patient seen and examined at bedside. She continued to have some left knee pain. Denies any chest pain, shortness breath, nausea, vomiting. General: non toxic, no distress, obese Derm: warm, dry Head: atraumatic, normocephalic, symmetric Eyes: EOMI, no lid lag, anicteric sclera Mouth: no lip lesion, mucus membranes moist Cardiovascular: S1S2 reg, no murmur, positive posterior tibial pulse bilateral, Lungs: CTA bilateral, no rhonchi, no rales , no accessory muscle use Abdominal: soft, nontender to palpation, no guarding, no appreciable organomegaly Ext: no gross muscle atrophy, trace edema bilateral, no contractures, dressing in place over left knee Neuro: CN II-XI grossly intact, no focal neuro deficits Psych: Alert, oriented, appropriate affect 75-year-old female status post left knee replacement Hypertension, better controlled -Continue with losartan, hydrochlorothiazide -Follow blood pressures Paroxysmal atrial fibrillation -Patient was on Coumadin as an outpatient -Continue with Coumadin therapy, pharmacy to dose Morbid obesity with BMI 46.4 -Outpatient structured weight loss Chronic: Dyslipidemia, SAMINA, psoriasis Patient is medically optimized for discharge. She could proceed with outpatient bridging of her INR with Lovenox and Coumadin if needed. Objective - Vital Signs Vital signs: Vital Signs Temp 98.1 F 05/16/21 14:00 Pulse 86 05/16/21 14:00 Resp 16 05/16/21 18:46 BP 127/56 05/16/21 14:00 Pulse Ox 94 L 05/16/21 14:00 Intake & Output 05/16/21 05/16/21 05/17/21 06:59 18:59 06:59 Intake Total 540 Balance 540 Intake: Oral 540 Other: Voiding Method Toilet Toilet # Voids 2 3 - Labs CBC & Chem 7: 05/16/21 05:56 05/16/21 05:56 Labs: Abnormal Lab Results - Last 24 Hours (Table) 05/16/21 05/16/21 Range/Units 05:56 05:56 Monocytes # 1.06 H (0.20-1.00) X 10*3/uL Eosinophils # 0.03 L (0.04-0.35) X 10*3/uL Sodium 135 L (137-145) mmol/L Glucose 114 H (74-99) mg/dL
[2021-05-16] MEDS: SENNOSIDES-DOCUSATE SODIUM 1 EACH TAB PO SCH (21:50)
[2021-05-16] MEDS: traMADol 50 MG TAB PO PRN (21:50)
[2021-05-16 22:44] VITALS: RESP 18
[2021-05-17] MEDS: HYDROcodone/APAP 7.5-325MG 1 EACH TAB PO PRN ×2 (03:47→08:28)
[2021-05-17] MEDS: SODIUM CHLORIDE 0.9% 1,000 ML IV SCH (05:14)
[2021-05-17 06:48] LABS: INR 1.8 (<1.2); Prothrombin Time 18.2 sec (9.0-12.0)
[2021-05-17 07:40] VITALS: BP 128/75; PULSE 90; TEMP 99.1
[2021-05-17] MEDS: ENOXAPARIN 30 MG/0.3 ML SYRINGE SQ SCH (08:19)
[2021-05-17] MEDS: PANTOPRAZOLE 40 MG TABLET PO SCH (08:19)
[2021-05-17] MEDS: LOSARTAN-HCTZ 50-12.5 MG 1 EACH TAB PO SCH (08:19)
[2021-05-17] MEDS: buPROPion XL 300 MG TAB.ER.24H PO SCH (08:19)
[2021-05-17] MEDS: PREGABALIN 75 MG CAP PO SCH (08:19)
--- NOTE | 2021-05-17 08:49 | P.PN ---
Subjective Progress Note Date: 05/17/21 Principal diagnosis: status post left total knee arthroplasty Patient is evaluated today at bedside, she is resting in her hospital bed. Patient is doing a lot better today with regards to her ambulation pain control. Patient's INR is improving, it is up to 1.8. Currently denies any headaches, lightheadedness, chest pain or shortness of breath. Objective - Vital Signs Vital signs: Vital Signs Temp 99.1 F 05/17/21 07:39 Pulse 90 05/17/21 07:39 Resp 18 05/17/21 07:39 BP 128/75 05/17/21 07:39 Pulse Ox 95 05/17/21 07:39 Intake & Output 05/16/21 05/17/21 05/17/21 18:59 06:59 18:59 Other: Voiding Method Toilet Toilet # Voids 3 3 - Exam Left lower extremity: Incision is clean, dry, and intact. The foam dressing is in good condition. There is minimal soft tissue swelling and ecchymosis surrounding the medial and lateral aspects of the incision. Calf is soft, no tenderness with palpation. Plantar flexion, dorsiflexion, EHL, FHL are intact. Sensory exam to light touch throughout the extremity is intact, dorsal pedis pulses 2+. - Labs CBC & Chem 7: 05/16/21 05:56 05/16/21 05:56 Labs: Abnormal Lab Results - Last 24 Hours (Table) 05/16/21 05/17/21 Range/Units 05:56 05:26 Monocytes # 1.06 H (0.20-1.00) X 10*3/uL Eosinophils # 0.03 L (0.04-0.35) X 10*3/uL PT 18.2 H (9.0-12.0) sec INR 1.8 H (<1.2) Assessment and Plan Assessment: Postop day # 3 status post left total knee arthroplasty Plan: Pain control, plan for [place] 7.5 mg and Lyrica 75 mg at discharge GI and DVT prophylaxis, patient will utilize her normal dose of Coumadin at discharge, INR prescription will be provided to be drawn later this week and provided for the family practice office Wound care instructions were discussed with patient Encouraged incentive spirometer Icing and elevating techniques discussed Continue work with physical therapy Medical recommendations Discharge planning: plan for discharge home today Time with Patient: Less than 30
--- NOTE | 2021-05-17 08:56 | P.DS ---
Providers Date of admission: 05/15/21 13:41 Expected date of discharge: 05/17/21 Attending physician: Theo Ozuna Consults: 05/14/21 17:21 Consult Physician Routine Consulting Provider: Nicky Ward Consult Reason/Comments: Medical management Do you want consulting provider notified?: Yes Primary care physician: Nicol Bain MD Hospital Course: Date of admission: 05/14/2021 Date of discharge: 05/17/2021 Admission diagnosis: Status post left total knee arthroplasty Discharge diagnosis: Same Attending physician: Dr. Ozuna Surgical procedures: Left total knee arthroplasty Brief history: Patient is a 75-year-old female with a history of progressive primary left knee osteoarthritis. At this point patient has failed conservative treatment measures and has opted to proceed with a elective left total knee arthroplasty. Hospital course: Details of patient's surgery can be found in operative report. Patient tolerated the procedure well and was subsequently transported to orthopedic floor. Patient's orthopeidc and medical care was provided daily. Patient had daily laboratory tests performed for evaluation of overall blood counts . Patient had daily physical therapy to include strengthening range of motion as well as education with walker ambulation. Patient was treated with Lovenox and Coumadin for their postoperative DVT prophylaxis during their inpatient stay. Patient was noted to have a relatively uneventful postoperative course. Patient reported satisfactory pain control with oral pain medications by postoperative day 2. Patient showed satisfactory progress with physical therapy. Patient moved steadily through the program and had no difficulty meeting the goals by postoperative day 3. Given patient's otherwise satisfa ctory course and having met physical therapy goals, plan is to discharge patient home on postoperative day 3. Discharge condition/disposition: Patient will be discharged home in stable condition. Discharge medications: Instructions are given on resumption of patient's normal daily medications per primary care recommendation, in addition patient will be prescribed [place] 7.5 mg/325 mg, Colace 100 mg, Lyrica 75 mg. Discharge instructions: 1. Wound care and infection precautions, keep incision dry and covered while showering, no lotions, creams, moisturizers. No soaking, tubs, pools, hottubs. Do not scrub over the incision. 2. Weight-bear as tolerated with walker / cane until follow-up. 3. Ice and elevate when necessary. Do not exceed 20 minutes per hour with ice pack. 4. Utilize compression sleeve until seen at first follow up appointment. 5. Visiting nursing care. 6. Home physical therapy including home CPM]. 7. Pain meds and anticoagulants per prescription. 8. Pain medication has potential to cause constipation. Increase oral fluid and fiber intake. Contact primary care provider if you have not had a bowel movement within 48 hours after discharge 9. No anti-inflammatory medication until discussed at first post operative visit, this including Motrin, Aleve, Mobic, Diclofenac. 10. Follow up in office at 2 weeks postop with Samson Davila PA-C/Juan C Desai 11. Follow up with your primary care doctor 7-10 days after discharge. 12. Contact [facility] with any questions, . Procedures: Left total knee arthroplasty Patient Condition at Discharge: Good Plan - Discharge Summary Discharge Rx Participant: No New Discharge Prescriptions: New Docusate [Colace] 100 mg PO DAILY #30 cap HYDROcodone/APAP 7.5-325MG [[place] 7.5] 1 each PO Q4H PRN #42 tab PRN Reason: Pain Pregabalin [Lyrica] 75 mg PO BID 14 Days #21 cap No Action Betamethasone Dipropionate [Diprolene AF 0.05% Cream] 1 applic TOPICAL BID PRN PRN Reason: Rash buPROPion XL [Wellbutrin XL] 300 mg PO DAILY Losartan-Hctz 50-12.5 mg [Hyzaar 50-12.5] 1 each PO DAILY #30 tab Omeprazole 20 mg PO DAILY Warfarin [Coumadin] 5 mg PO DAILY Discharge Medication List Betamethasone Dipropionate [Diprolene AF 0.05% Cream] 1 applic TOPICAL BID PRN 12/18/20 [History] buPROPion XL [Wellbutrin XL] 300 mg PO DAILY 12/18/20 [History] Losartan-Hctz 50-12.5 mg [Hyzaar 50-12.5] 1 each PO DAILY #30 tab 12/19/20 [Rx] Omeprazole 20 mg PO DAILY 05/10/21 [History] Warfarin [Coumadin] 5 mg PO DAILY 05/10/21 [History] Docusate [Colace] 100 mg PO DAILY #30 cap 05/17/21 [Rx] HYDROcodone/APAP 7.5-325MG [[place] 7.5] 1 each PO Q4H PRN #42 tab 05/17/21 [Rx] Pregabalin [Lyrica] 75 mg PO BID 14 Days #21 cap 05/17/21 [Rx] Follow up Appointment(s)/Referral(s): [facility] [NON-STAFF] - As Needed (Continuous Passive Motion knee machine) [facility], [NON-STAFF] - As Needed Isaias Davila, PAC [PHYSICIAN REPORT SPECIALIST] - 05/30/21 2:30 pm Ambulatory/Diagnostic Orders: Prothrombin Time INR [LAB.AMB] Location: None Selected Activity/Diet/Wound Care/Special Instructions: Orthopedic Discharge Instructions: 1. Wound care and infection precautions, keep incision dry and covered while showering, no lotions, creams, moisturizers. No soaking, pools, hot tubs. Do not scrub over incision. 2. Weight-bear as tolerated with walker / cane until follow-up. 3. Ice and elevate when necessary. Do not exceed 20 minutes per hour with ice pack. 4. Utilize compression sleeve until seen at first follow up appointment. 5. Pain meds and anticoagulants per prescription. 6. Pain medication has potential to cause constipation. Increase oral fluid and fiber intake. Contact primary care provider if you have not had a bowel movement within 48 hours after discharge. 7. No anti-inflammatory medication until discussed at first post operative visit, this including Motrin, Aleve, Mobic, Diclofenac. 8. Follow up in office at 2 weeks postop with Samson Davila PA-C/Juan C Govea PA-C 9. Follow up with your primary care doctor 7-10 days after discharge. 10. Contact [facility] with any questions, . Discharge Disposition: HOME WITH HOME HEALTH SERVICES
[2021-05-17 09:08] LABS: Basophils # (A) 0.06 X 10*3/uL (0.00-0.10); Basophils % (A) 0.7 %; Eosinophils # (A) 0.06 X 10*3/uL (0.04-0.35); Eosinophils % (A) 0.7 %; HGB 12.4 g/dL (12.0-15.0); Lymphocytes # (A) 1.59 X 10*3/uL (0.90-5.00); Lymphocytes % (A) 19.3 %; MCH 30.8 pg (27.0-32.0); MCHC 32.6 g/dL (32.0-37.0); MCV 94.5 fL (80.0-97.0); Mean Platelet Volume 11.3 fL (9.5-12.2); Monocytes # (A) 0.88 X 10*3/uL (0.20-1.00); Monocytes % (A) 10.7 %; Neutrophils # (A) 5.62 X 10*3/uL (1.80-7.70); Neutrophils % (A) 68.4 %; Platelet Count 219 X 10*3/uL (140-440); RBC 4.02 X 10*6/uL (4.10-5.20); RDW 13.1 % (11.5-14.5); WBC 8.23 X 10*3/uL (4.50-10.00)
[2021-05-17] MEDS: LACTATED RINGERS 1,000 ML IV SCH (10:07)
[2021-05-17] MEDS ORDERED: WARFARIN 5 MG TAB PO ONE (18:00)
== END 2021-05-17 12:29 | disposition home health service (06) ==
LOC: OR 13:32 → 4SSUR 15:13 → OR 05-15 13:41 → 4SSUR 05-15 13:41
PROVIDERS: ADMIT Orthopaedic Surgery; ATTEND Orthopaedic Surgery
DX: M17.12 Unilateral primary osteoarthritis, left knee (principal); I10 Essential (primary) hypertension; I48.0 Paroxysmal atrial fibrillation; R11.0 Nausea; K21.9 Gastro-esophageal reflux disease without esophagitis; E78.5 Hyperlipidemia, unspecified; G47.33 Obstructive sleep apnea (adult) (pediatric); L40.9 Psoriasis, unspecified; H91.90 Unspecified hearing loss, unspecified ear; I83.90 Asymptomatic varicose veins of unspecified lower extremity; E66.01 Morbid (severe) obesity due to excess calories; Z68.42 Body mass index [BMI] 45.0-49.9, adult; Z79.01 Long term (current) use of anticoagulants; Z79.899 Other long term (current) drug therapy; Z88.8 Allergy status to other drugs, medicaments and biological substances; Z96.643 Presence of artificial hip joint, bilateral; Z96.651 Presence of right artificial knee joint; Z98.1 Arthrodesis status; Z98.51 Tubal ligation status; Z98.890 Other specified postprocedural states; Z80.9 Family history of malignant neoplasm, unspecified; Z82.49 Family history of ischemic heart disease and other diseases of the circulatory system; Z84.89 Family history of other specified conditions
CPT/HCPCS: 94760 ×2; 97116 ×2; 97161; 64999; 64448; 76942; 80048; 83735; 85025 ×3; 85610 ×4; 88300; 87635; 73560; 27447; G0378 ×3; C1776; C1713 ×2; J2250; J1100; J2710; J0690 ×2; J2405 ×2; J2001; J3010; J1650 ×3; J1170 ×3; J2795 ×2; J0330; J2704

== ENCOUNTER 2022-04-04 11:25 | Observation (INO) | payer MEDICARE ==
[2022-04-04] MEDS ORDERED: ONDANSETRON 4 MG/2 ML VIAL IVP STA (11:52)
[2022-04-04] MEDS ORDERED: NITROGLYCERIN SL TABS 0.4 MG TAB SUBLINGUAL STA ×3 (11:52)
[2022-04-04] MEDS ORDERED: ASPIRIN 81 MG PO STA (11:52)
--- NOTE | 2022-04-04 11:54 | ED ---
General Adult HPI - General Chief complaint: Chest Pain Stated complaint: chest pain, nausea Time Seen by Provider: 04/04/22 11:39 Source: patient, RN notes reviewed Mode of arrival: wheelchair Limitations: no limitations - History of Present Illness Initial comments: Patient is a pleasant 76-year-old female presenting to the emergency department chest discomfort. Onset was early this morning around 5 AM. Discomfort feels like tightness. Discomfort is somewhat severe at this time rated 9/10. Patient has had associated nausea and vomiting. Patient does feel a little bit short of breath. Patient has been somewhat sweaty. Patient did have similar symptoms once previously however is unclear why. No history of heart attack. No leg pain or leg swelling. No radiation - Related Data Home Medications Medication Instructions Recorded Confirmed No Known Home Medications 04/04/22 04/04/22 Allergies Allergy/AdvReac Type Severity Reaction Status Date / Time duloxetine [From Cymbalta] Allergy Rash/Hives Verified 04/04/22 14:19 famotidine Allergy Rash/Hives Verified 04/04/22 14:19 Review of Systems ROS Statement: Those systems with pertinent positive or pertinent negative responses have been documented in the HPI. ROS Other: All systems not noted in ROS Statement are negative. Constitutional: Denies: fever Eyes: Denies: eye pain ENT: Denies: ear pain Respiratory: Reports: as per HPI. Denies: cough Cardiovascular: Reports: as per HPI, chest pain Endocrine: Denies: fatigue Gastrointestinal: Reports: nausea, vomiting. Denies: abdominal pain Genitourinary: Denies: dysuria Musculoskeletal: Denies: back pain Skin: Denies: rash Neurological: Denies: weakness Past Medical History Past Medical History: Atrial Fibrillation Additional Past Medical History / Comment(s): Psoriasis. USES CPAP. VARICOSE VEINS.uti, constipation since knee sx 06-16-17 had monique wilkest(pebble like bm yesterday History of Any Multi-Drug Resistant Organisms: None Reported Past Surgical History: Back Surgery, Joint Replacement, Orthopedic Surgery, Tubal Ligation Additional Past Surgical History / Comment(s): ORIF RT Arm; PLATE REMOVED. LUH KNEE SCOPES. SPINAL FUSION., right knee replacement, fusion L1/L2, right total hip Past Anesthesia/Blood Transfusion Reactions: Family History of Problems w/ Anesthesia, Motion Sickness, Postoperative Nausea & Vomiting (PONV) Additional Past Anesthesia/Blood Transfusion Reaction / Comment(s): SISTER WAS ON VENTILATOR AFTER SURGERY, SHE ALSO HAD LUPUS. Past Psychological History: Anxiety, Depression Smoking Status: Never smoker Past Alcohol Use History: None Reported Past Drug Use History: None Reported - Past Family History Brother(s) Family Medical History: Cancer Additional Family Medical History / Comment(s): 2 BROTHERS = CANCER Mother Additional Family Medical History / Comment(s): leaky heart valve Father Additional Family Medical History / Comment(s): Artery broke General Exam Limitations: no limitations General appearance: alert, in no apparent distress Head exam: Present: normocephalic Eye exam: Present: normal appearance Neck exam: Present: normal inspection Respiratory exam: Present: normal lung sounds bilaterally. Absent: chest wall tenderness Cardiovascular Exam: Present: regular rate, normal rhythm Expanded Peripheral pulses: 2+: Radial (R), Radial (L), Dorsalis Pedis (R), Dorsalis Pedis (L) GI/Abdominal exam: Present: soft. Absent: tenderness Extremities exam: Present: normal inspection. Absent: pedal edema, calf tenderness Neurological exam: Present: alert Psychiatric exam: Present: normal affect, normal mood Skin exam: Present: normal color Course Vital Signs 04/04/22 11:34 Temperature 98.2 F Pulse Rate 70 Respiratory 18 Rate Blood Pressure 182/82 O2 Sat by Pulse 96 Oximetry EKG Findings - EKG Comments: EKG Findings:: Sinus rhythm rate 70. NM 131. QRS 90. QT 390. QTC 412. Normal axis. Normal QRS. No acute ST change. Medical Decision Making - Medical Decision Making Patient reevaluated and significantly improved following nitroglycerin. Patient and family updated on results and plan. Case was discussed with , who will admit covering hospital call. - Lab Data Result diagrams: 04/04/22 12:04 04/04/22 12:04 Lab Results 04/04/22 04/04/22 04/04/22 Range/Units 12:04 12:04 12:04 WBC 7.8 (3.8-10.6) k/uL RBC 5.10 (3.80-5.40) m/uL Hgb 16.6 H (11.4-16.0) gm/dL Hct 49.6 H (34.0-46.0) % MCV 97.2 (80.0-100.0) fL MCH 32.5 (25.0-35.0) pg MCHC 33.4 (31.0-37.0) g/dL RDW 13.7 (11.5-15.5) % Plt Count 235 (150-450) k/uL MPV 9.0 Neutrophils % 87 % Lymphocytes % 9 % Monocytes % 2 % Eosinophils % 1 % Basophils % 0 % Neutrophils # 6.8 (1.3-7.7) k/uL Lymphocytes # 0.7 L (1.0-4.8) k/uL Monocytes # 0.2 (0-1.0) k/uL Eosinophils # 0.0 (0-0.7) k/uL Basophils # 0.0 (0-0.2) k/uL PT 9.7 (9.0-12.0) sec INR 0.9 (<1.2) APTT 26.5 (22.0-30.0) sec D-Dimer 1.19 H (<0.60) mg/L FEU Sodium 139 (137-145) mmol/L Potassium 4.3 (3.5-5.1) mmol/L Chloride 104 (98-107) mmol/L Carbon Dioxide 25 (22-30) mmol/L Anion Gap 10 mmol/L BUN 19 H (7-17) mg/dL Creatinine 0.75 (0.52-1.04) mg/dL Est GFR (CKD-EPI)AfAm >90 (>60 ml/min/1.73 sqM) Est GFR (CKD-EPI)NonAf 78 (>60 ml/min/1.73 sqM) Glucose 142 H (74-99) mg/dL Calcium 9.6 (8.4-10.2) mg/dL Magnesium 1.7 (1.6-2.3) mg/dL Total Bilirubin 0.8 (0.2-1.3) mg/dL AST 39 H (14-36) U/L ALT 22 (4-34) U/L Alkaline Phosphatase 109 (38-126) U/L Troponin I (0.000-0.034) ng/mL Total Protein 8.2 (6.3-8.2) g/dL Albumin 4.6 (3.5-5.0) g/dL 04/04/22 Range/Units 12:04 WBC (3.8-10.6) k/uL RBC (3.80-5.40) m/uL Hgb (11.4-16.0) gm/dL Hct (34.0-46.0) % MCV (80.0-100.0) fL MCH (25.0-35.0) pg MCHC (31.0-37.0) g/dL RDW (11.5-15.5) % Plt Count (150-450) k/uL MPV Neutrophils % % Lymphocytes % % Monocytes % % Eosinophils % % Basophils % % Neutrophils # (1.3-7.7) k/uL Lymphocytes # (1.0-4.8) k/uL Monocytes # (0-1.0) k/uL Eosinophils # (0-0.7) k/uL Basophils # (0-0.2) k/uL PT (9.0-12.0) sec INR (<1.2) APTT (22.0-30.0) sec D-Dimer (<0.60) mg/L FEU Sodium (137-145) mmol/L Potassium (3.5-5.1) mmol/L Chloride (98-107) mmol/L Carbon Dioxide (22-30) mmol/L Anion Gap mmol/L BUN (7-17) mg/dL Creatinine (0.52-1.04) mg/dL Est GFR (CKD-EPI)AfAm (>60 ml/min/1.73 sqM) Est GFR (CKD-EPI)NonAf (>60 ml/min/1.73 sqM) Glucose (74-99) mg/dL Calcium (8.4-10.2) mg/dL Magnesium (1.6-2.3) mg/dL Total Bilirubin (0.2-1.3) mg/dL AST (14-36) U/L ALT (4-34) U/L Alkaline Phosphatase (38-126) U/L Troponin I <0.012 (0.000-0.034) ng/mL Total Protein (6.3-8.2) g/dL Albumin (3.5-5.0) g/dL - Radiology Data Radiology results: report reviewed (CT angiogram of the chest shows no pulmonary embolism. Mildly distended gallbladder, wall. No fluid.), image reviewed (Chest x-ray shows mild cardiomegaly. Increased interstitial density, possibly chronic.) Disposition Clinical Impression: Chest pain Disposition: ADMITTED IP TO THIS HOSP Is patient prescribed a controlled substance at d/c from ED?: No Referrals: None,Stated [Primary Care Provider] - 1-2 days Time of Disposition: 14:28
[2022-04-04 12:16] LABS: Basophils % (A) 0 %; Eosinophils % (A) 1 %; HCT 49.6 % (34.0-46.0); HGB 16.6 gm/dL (11.4-16.0); Lymphocytes # (A) 0.7 k/uL (1.0-4.8); Lymphocytes % (A) 9 %; MCH 32.5 pg (25.0-35.0); MCHC 33.4 g/dL (31.0-37.0); MCV 97.2 fL (80.0-100.0); Monocytes # (A) 0.2 k/uL (0-1.0); Monocytes % (A) 2 %; Neutrophils # (A) 6.8 k/uL (1.3-7.7); Neutrophils % (A) 87 %; Platelet Count 235 k/uL (150-450); RDW 13.7 % (11.5-15.5); WBC 7.8 k/uL (3.8-10.6)
[2022-04-04 12:40] LABS: ALT 22 U/L (4-34); AST 39 U/L (14-36); African American GFR (CKD) >90 (>60 ml/min/1.73 sqM); Albumin 4.6 g/dL (3.5-5.0); Alkaline Phosphatase 109 U/L (38-126); Anion Gap 10 mmol/L; Blood Urea Nitrogen 19 mg/dL (7-17); Calcium 9.6 mg/dL (8.4-10.2); Carbon Dioxide 25 mmol/L (22-30); Chloride 104 mmol/L (98-107); Glucose 142 mg/dL (74-99); Magnesium 1.7 mg/dL (1.6-2.3); Non-African American GFR(CKD) 78 (>60 ml/min/1.73 sqM); Potassium 4.3 mmol/L (3.5-5.1); Sodium 139 mmol/L (137-145); Total Bilirubin 0.8 mg/dL (0.2-1.3); Total Protein 8.2 g/dL (6.3-8.2)
--- NOTE | 2022-04-04 12:43 | XR ---
EXAMINATION TYPE: XR chest 2V DATE OF EXAM: 04/04/2022 COMPARISON: 12/18/2020 HISTORY: 76-year-old female with chest pain TECHNIQUE: AP and lateral views FINDINGS: Heart is mildly enlarged. Interstitial and vascular prominence is unchanged. Large patient body habit us resulting in hazy peripheral densities. No gloria consolidation or pleural effusion. IMPRESSION: Similar mild cardiomegaly. Continued increased interstitial density which may be chronic. Consider br onchitis, chronic asthma, or mild pulmonary vascular congestion.
[2022-04-04 12:44] LABS: INR 0.9 (<1.2); Partial Thromboplastin Time 26.5 sec (22.0-30.0); Prothrombin Time 9.7 sec (9.0-12.0)
--- NOTE | 2022-04-04 14:09 | CT ---
EXAMINATION TYPE: CT angio chest CT DLP: 677.9 mGycm, Automated exposure control for dose reduction was used. DATE OF EXAM: 04/04/2022 1:50 PM COMPARISON: CTA chest 06/27/2017. CLINICAL INDICATION:Female, 76 years old with history of cp; SOB, chest pain TECHNIQUE/CONTRAST: CTA scan of the thorax is performed with IV Contrast, patient injected with 100 mL of Isovue 370, pul monary embolism protocol. MIP images are created and reviewed. FINDINGS: Pulmonary Artery: There is no evidence for a filling defect within the pulmonary vasculature to sugge st acute pulmonary embolism. The pulmonary artery is of normal size. Lungs/Pleura: No evidence of focal consolidation, pleural effusion or pneumothorax. Minimal lingular atelectasis. Airway: Large airways are patent. Heart: The heart is mildly enlarged for size. No pericardial effusion. Vasculature: Ascending thoracic aortic ectasia measuring up to 4.1 cm. Mediastinum: No gross evidence of adenopathy. Musculoskeletal: Age-indeterminate nondisplaced left fourth through seventh lateral rib fractures. Mu ltilevel degenerative changes of the visualized spine. Soft Tissues: Unremarkable. Lower neck: No significant findings. Upper Abdomen: Stable left hepatic lobe 1.2 cm cyst. Mild distended gallbladder with mildly prominent gallbladder wall measuring up to 4 mm. No definitive surrounding inflammatory changes. Small hiatal hernia. Bilateral renal cysts again demonstrated with largest visualized in the superior pole of the left kidney measuring up to 7.9 cm. IMPRESSION: 1. No evidence of pulmonary embolism. 2. Age-indeterminate nondisplaced left lateral fourth through seventh rib fractures. Correlate with p oint tenderness. 3. Mildly distended gallbladder with mildly prominent gallbladder wall. No definitive surrounding inf lammatory changes. Consider further evaluation with gallbladder ultrasound.
[2022-04-04] MEDS ORDERED: NITROGLYCERIN SL TABS 0.4 MG TAB SUBLINGUAL PRN (14:29)
[2022-04-04] MEDS: NITROGLYCERIN OINT 1 INCH/GM PACKET TOPICAL SCH ×3 (14:36→23:57)
--- NOTE | 2022-04-04 15:56 | US ---
EXAMINATION TYPE: US gallbladder DATE OF EXAM: 04/04/2022 COMPARISON: CT chest same day CLINICAL HISTORY: pain. chest pain, nausea TECHNIQUE: Multiple sonographic images of the right upper quadrant are obtained. FINDINGS: EXAM MEASUREMENTS: Liver Length: 17.4 cm Gallbladder Wall: 0.3 cm CBD: 1.0 cm Right Kidney: 10.9 x 3.7 x 4.4 cm SAFETY TECHNICIAN NOTES:large habitus and bowel gas limits exam Pancreas: portions seen appear wnl Liver: difficult to penetrate Gallbladder: borderline wall thickness with multiple stone seen and possible pericolic gutter fluid Evidence for sonographic Worthy's sign: YES CBD: dilated with no obvious obstruction Right Kidney: wnl IMPRESSION: Exam is limited. Correlate for cholecystitis, there may be tumefactive sludge, difficult to exclude l uminal mass, dilated common bile duct, consider surgical, gastroenterology consult. There may be unde rlying hepatic steatosis, hepatocellular disease.
[2022-04-04] MEDS ORDERED: MORPHINE SULFATE 4 MG/ML SYRINGE IV PRN (15:58)
--- NOTE | 2022-04-04 16:04 | P.HPIM ---
History of Present Illness H&P Date: 04/04/22 History of Presenting Illness: Patient is a very pleasant 76-year-old female with a past medical history of atrial fibrillation not on anticoagulation (stopped taking approximately 8 months ago). She presented to the emergency department with a chief complaint of chest pain. Patient reports pain to midsternal chest pain that she described as a pressure accompanied by diaphoresis, nausea, and vomiting as well as mild shortness of breath. Patient reports this began initially around 12 AM and awoken her from sleep. Patient reports she went and took a teaspoon of baking soda and water in hopes this would provide her some relief. Patient reports she went back to bed and this pain progressively worsened and around 5 AM she states this pain was excruciating and this is when she became very diaphoretic and nauseous and began vomiting. Patient states she has never felt anything like this in the past. She describes this pain as an intense, excruciating pressure. Patient states this pressure has significantly improved since arriving to the hospital and currently reports mild pain 3-4 out of 10. Patient denies any recent fevers, chills, palpitations, cough or congestion, or experiencing any numbness/tingling/weakness/swelling in her extremities. She underwent full evaluation in the emergency department. EKG was completed showing normal sinus rhythm at 70 bpm with no noted T wave or ST abnormality showing no signs of acute ischemia. Chest x-ray revealing mild cardiomegaly with continued increased interstitial density possibly chronic. CTA chest negative for pulmonary emboli with age indeterminate nondisplaced left lateral fourth through seventh rib fractures, mildly distended gallbladder with prominent gallbladder wall. CBC unremarkable with the exception of elevated hemoglobin of 16.6 and hematocrit of 49.6. D-dimer was elevated at 1.19. CMP revealing a slightly elevated AST of 39 otherwise normal findings. Troponin negative at less than 0.012. Patient admitted under our services with consultation to cardiology. Review of systems: Pertinent positives and negatives as discussed in HPI, a complete review of systems was performed and all other systems are negative. Physical exam: Vital signs reviewed and stable. General: Nontoxic, no distress and appears stated age. Obese. Derm: Skin warm and dry, normal coloration for ethnicity. Head: Atraumatic, normocephalic and symmetric. Eyes: EOMs intact, no lid lag, and anicteric sclera Mouth: no lip lesions, mucus membranes moist Cardiovascular: regular rate and rhythm with normal S1S2, no murmur, positive posterior tibial pulses bilaterally, and cap refill < 2 seconds. Lungs: Respirations even, regular, and unlabored on room air. Lungs CTA bilaterally, no rhonchi, no rales, no wheezing, and no accessory muscle usage. Abdominal: soft, slight tenderness upon palpation in right upper quadrant and epigastric region . No guarding and no appreciable organomegaly Ext: ROM intact. No gross muscle atrophy, no edema, no contractures Neuro: Speech clear, face symmetrical and CN II-XII grossly intact with no noted focal neuro deficits Psych: Alert and oriented to person, place, time, and situation. Appropriate and pleasant affect. Assessment and Plan of Care: Chest pain, rule out acute coronary event -Cardiology consult, appreciate further recommendations -Telemetry monitoring -Trend troponins -Cardiac diet, NPO at midnight -Continue daily aspirin -Lipid profile with a.m. labs. Gallbladder distention with prominent gallbladder wall Right upper quadrant and epigastric tenderness upon palpation -Gen. surgery consulted to rule out cholecystitis -Ultrasound gallbladder -Symptomatic care and pain management -NPO until gallbladder ultrasound completed and evaluated by general surgery. -Gentle IV fluid hydration. History of atrial fibrillation -No longer on anticoagulation. Patient reports there was some difficulties with her insurance and she took herself off of anticoagulant as she was unable to get her labs drawn for the warfarin as she was supposed to. -Currently sinus mechanism -DVT prophylaxis with heparin Nondisplaced left lateral rib fractures, fourth through seventh -Fractures of indeterminate age, patient asymptomatic denies having any falls or recent injuries. Denies any previous MVAs within the last 10 years. Elevated d-dimer, CTA negative for pulmonary emboli The patient is admitted with an anticipated less than 2 midnight stay for evaluation of chest pain CODE STATUS: Full code DVT prophylaxis: Heparin Discussed with: Patient and RN Anticipated discharge date: 1-[address]: Home A total of 45 minutes was spent on the care of this complex patient more than 50% of the time was spent in counseling and care coordination. I reviewed the documentation as provided by the MAX above, who is the original author of this note. I agree with the documented assessment and plan, with the following changes: none Past Medical History Past Medical History: Atrial Fibrillation Additional Past Medical History / Comment(s): Psoriasis. USES CPAP. VARICOSE VEINS.uti, constipation since knee sx 06-16-17 had monique amt(pebble like bm yesterday History of Any Multi-Drug Resistant Organisms: None Reported Past Surgical History: Back Surgery, Joint Replacement, Orthopedic Surgery, Tubal Ligation Additional Past Surgical History / Comment(s): ORIF RT Arm; PLATE REMOVED. LUH KNEE SCOPES. SPINAL FUSION., right knee replacement, fusion L1/L2, right total hip Past Anesthesia/Blood Transfusion Reactions: Family History of Problems w/ Ane sthesia, Motion Sickness, Postoperative Nausea & Vomiting (PONV) Additional Past Anesthesia/Blood Transfusion Reaction / Comment(s): SISTER WAS ON VENTILATOR AFTER SURGERY, SHE ALSO HAD LUPUS. Past Psychological History: Anxiety, Depression Smoking Status: Never smoker Past Alcohol Use History: None Reported Past Drug Use History: None Reported - Past Family History Brother(s) Family Medical History: Cancer Additional Family Medical History / Comment(s): 2 BROTHERS = CANCER Mother Additional Family Medical History / Comment(s): leaky heart valve Father Additional Family Medical History / Comment(s): Artery broke Medications and Allergies Home Medications Medication Instructions Recorded Confirmed Type No Known Home Medications 04/04/22 04/04/22 History Allergies Allergy/AdvReac Type Severity Reaction Status Date / Time duloxetine [From Cymbalta] Allergy Rash/Hives Verified 04/04/22 17:08 famotidine Allergy Rash/Hives Verified 04/04/22 17:08 Physical Exam Osteopathic Statement: *. No significant issues noted on an osteopathic structural exam other than those noted in the History and Physical/Consult. Vitals: Vital Signs Temp Pulse Resp BP Pulse Ox 04/04/22 11:34 98.2 F 70 18 182/82 96 Intake and Output 04/04/22 04/04/22 04/04/22 06:59 14:59 22:59 Other: Weight 122.47 kg Results CBC & Chem 7: 04/05/22 05:46 04/05/22 05:46 Labs: Abnormal Lab Results - Last 24 Hours (Table) 04/04/22 04/04/22 04/04/22 Range/Units 12:04 12:04 12:04 Hgb 16.6 H (11.4-16.0) gm/dL Hct 49.6 H (34.0-46.0) % Lymphocytes # 0.7 L (1.0-4.8) k/uL D-Dimer 1.19 H (<0.60) mg/L FEU BUN 19 H (7-17) mg/dL Glucose 142 H (74-99) mg/dL AST 39 H (14-36) U/L
[2022-04-04] MEDS ORDERED: ONDANSETRON 4 MG/2 ML VIAL IVP PRN (17:32)
[2022-04-04] MEDS: SODIUM CHLORIDE 0.9% 1,000 ML IV SCH (17:45)
[2022-04-04] MEDS: HEPARIN SODIUM,PORCINE/PF 5,000 UNIT/0.5 ML SYRINGE SQ SCH (17:46)
[2022-04-04] MEDS ORDERED: METOCLOPRAMIDE 5 MG/ML 2 ML VIAL IVP PRN (18:14)
[2022-04-04] MEDS ORDERED: ACETAMINOPHEN TAB 325 MG TAB PO PRN (19:34)
[2022-04-05] MEDS: HEPARIN SODIUM,PORCINE/PF 5,000 UNIT/0.5 ML SYRINGE SQ SCH ×2 (00:02→07:33)
[2022-04-05] MEDS: NITROGLYCERIN OINT 1 INCH/GM PACKET TOPICAL SCH (06:32)
[2022-04-05] MEDS: SODIUM CHLORIDE 0.9% 1,000 ML IV SCH (06:32)
[2022-04-05 07:49] VITALS: BP 118/56; PULSE 64; RESP 17; TEMP 98.1
[2022-04-05] MEDS ORDERED: ASPIRIN 325 MG TAB PO SCH (09:00)
[2022-04-05 09:03] LABS: ALT 40 U/L (8-44); AST 44 U/L (13-35); African American GFR (CKD) 98.2 (60.0-200.0); Albumin 3.8 g/dL (3.8-4.9); Albumin/Globulin Ratio 1.58 (1.60-3.17); Alkaline Phosphatase 106 U/L (41-126); BUN/Creat Ratio 15.86 Ratio (12.00-20.00); Blood Urea Nitrogen 11.1 mg/dL (9.0-27.0); Carbon Dioxide 25.5 mmol/L (20.0-27.5); Chloride 108 mmol/L (96-109); Globulin 2.4 g/dL (1.6-3.3); Glucose 99 mg/dL (70-110); LDL Cholesterol,Calculated 142.1 mg/dL (0.0-131.0); Non-African American GFR(CKD) 84.8 (60.0-200.0); Potassium 3.7 mmol/L (3.5-5.5); Sodium 142 mmol/L (135-145); Total Protein 6.2 g/dL (6.2-8.2); VLDL Calculation 15.12 mg/dL (5.00-40.00)
[2022-04-05 09:43] LABS: HCT 42.3 % (37.2-46.3); HGB 13.5 g/dL (12.0-15.0); MCH 30.2 pg (27.0-32.0); MCHC 31.9 g/dL (32.0-37.0); MCV 94.6 fL (80.0-97.0); Mean Platelet Volume 11.5 fL (9.5-12.2); NRBC Per 100 WBC 0 /100 WBCS (0.0-0.0); Platelet Count 236 X 10*3/uL (140-440); RBC 4.47 X 10*6/uL (4.10-5.20); RDW 13.6 % (11.5-14.5); WBC 6.48 X 10*3/uL (4.50-10.00)
--- NOTE | 2022-04-05 11:10 | CA ---
Transthoracic Echo Report Name: Kat Pritchard Age: 76 Gender: F : 1945 Exam Date: 04/05/2022 10:28 Exam Location: [facility] Ht (in): 63 Wt (lb): 270 Ordering Physician: Jud Mireles Attending/Referring Phys: [id number], Aline Manager [employer] Alia Barr RDCS Procedure CPT: Indications: LV function Cardiac Hx: Technical Quality: Fair Contrast 1: Total Dose (mL): Contrast 2: Total Dose (mL): MEASUREMENTS (Male / Female) Normal Values 2D ECHO LV Diastolic Diameter PLAX 3.7 cm 4.2 - 5.9 / 3.9 - 5.3 cm LV Systolic Diameter PLAX 2.4 cm IVS Diastolic Thickness 1.1 cm 0.6 - 1.0 / 0.6 - 0.9 cm LVPW Diastolic Thickness 1.4 cm 0.6 - 1.0 / 0.6 - 0.9 cm LV Relative Wall Thickness 0.7 RV Internal Dim ED PLAX 2.9 cm LA Volume 58.5 cm??? 18 - 58 / 22 - 52 cm??? M-MODE Aortic Root Diameter MM 2.8 cm LA Systolic Diameter MM 5.0 cm LA Ao Ratio MM 1.8 AV Cusp Separation MM 1.8 cm DOPPLER AV Peak Velocity 134.8 cm/s AV Peak Gradient 7.3 mmHg LVOT Peak Velocity 131.8 cm/s LVOT Peak Gradient 6.9 mmHg MV Area PHT 2.6 cm??? Mitral E Point Velocity 94.6 cm/s Mitral A Point Velocity 102.3 cm/s Mitral E to A Ratio 0.9 MV Deceleration Time 296.5 ms MV E' Velocity 5.7 cm/s Mitral E to MV E' Ratio 16.6 TR Peak Velocity 294.8 cm/s TR Peak Gradient 34.8 mmHg Right Ventricular Systolic Press 39.0 mmHg FINDINGS Left Ventricle Mildly increased left ventricular wall thickness. Normal left ventricular systolic function with no obvious regional wall motion abnormalities. Left ventricular ejection fraction is estimated at 55-60 %. Right Ventricle Normal right ventricular size and function. Mild pulmonary hypertension. Right Atrium Normal right atrial size. Left Atrium Mildly increased left atrial volume. No evidence for an atrial septal defect. Mitral Valve Structurally normal mitral valve. Mild mitral annular calcification. Mild mitral regurgitation. Aortic Valve Trileaflet aortic valve. No aortic valve stenosis or regurgitation. Tricuspid Valve Structurally normal tricuspid valve. [id number] tricuspid regurgitation. Pulmonic Valve Structurally normal pulmonic valve. Trace pulmonic regurgitation. Pericardium No pericardial effusion. Aorta Normal size aortic root and proximal ascending aorta. CONCLUSIONS LVH with preserved systolic function Mild mitral regurgitation Mild to moderate tricuspid regurgitation Previewed by: Dr. Dejuan Logan MD (Electronically Signed) Final Date: 05 April 2022 11:09
--- NOTE | 2022-04-05 11:43 | P.CRDCN ---
History of Present Illness Consult date: 04/05/22 History of present illness: HISTORY OF PRESENT ILLNESS: This is a 76-year-old female with a past medical history significant for paroxysmal atrial fibrillation, hypertension, hyperlipidemia, and obesity. Patient follows in the office with Dr. Lu but has not been seen in the office since December 2020. We have been asked to see the patient in consultation for chest pain. Patient examined at the bedside. Patient states yesterday morning around 5:00 she began to have chest pain. She states the pain was in the middle of her chest. She denies any radiation of the pain. She also reports having nausea. Denies any shortness of breath. The patient states that she had meatballs late at night the night before and she believes this may have contributed to her symptoms. She has had no further episodes of chest pain since. An ultrasound of the gallbladder was obtained revealing borderline gallbladder wall thickness with multiple stones and possible pericolic gutter fluid. General surgery was consulted for further evaluation. It is noted that the patient has a history of paroxysmal atrial fibrillation. When she saw Dr. Lu in office in December 2020 it was documented that the patient had stopped taking all of her medications including Eliquis. Dr. Lu discussed her medications with her including anticoagulation with Eliquis, metoprolol, and Crestor. The patient states she does not take any of these medications. * EKG reveals sinus mechanism with no signs of acute ischemia * Chest xray similar mild cardiomegaly. Continued increased interstitial density which may be chronic. Consider bronchitis, chronic asthma, or mild pulmonary vascular congestion * Laboratory data: WBC 6.48. Hemoglobin 13.5. Platelet count 236. D-dimer 1.19. Sodium 142. Potassium 3.7. BUN 11. Creatinine 0.7. Troponin negative 3. * Current home cardiac medications include none * Echocardiogram obtained reveals ejection fraction 55-60%, mild pulmonary hypertension, mild mitral regurgitation, [id number] tricuspid regurgitation REVIEW OF SYSTEMS: At the time of my exam: CONSTITUTIONAL: Denies fever or chills. HEENT: Denies blurred vision, vision changes, or eye pain. Denies hemoptysis CARDIOVASCULAR: Denies chest pain. Denies orthopnea. Denies PND. Denies palpitations RESPIRATORY: Denies shortness of breath. GASTROINTESTINAL: Denies abdominal pain. Denies nausea or vomiting. HEMATOLOGIC: Denies bleeding disorders. GENITOURINARY: Denies any blood in urine. SKIN: Denies pruitis. Denies rash. PHYSICAL EXAM: VITAL SIGNS: Reviewed. GENERAL: Well-developed in no acute distress. HEENT: Head is normocephalic. Pupils are equal, round. Sclerae anicteric. Mucous membranes of the mouth are moist. Neck supple. No JVD or thyromegaly LUNGS: Respirations even and unlabored. Lungs essentially clear to auscultation bilaterally. HEART: Regular rate and rhythm. S1 and S2 heard. ABDOMEN: Soft. Nondistended. Nontender. EXTREMITIES: Normal range of motion. No clubbing or cyanosis. Peripheral pulses intact. No lower extremity edema NEUROLOGIC: Awake and alert. Oriented x 3. ASSESSMENT: Chest pain, atypical, troponin negative 3 Abdominal pain with abnormal ultrasound of gallbladder Paroxysmal atrial fibrillation, not on anticoagulation per patient choice Hypertension Hyperlipidemia Obesity PLAN: An acute coronary event has been ruled out General surgery has been consulted for further evaluation of abnormal color ultrasound Patient was previously started on Eliquis, metoprolol, and Crestor when she saw Dr. Lu in 2020. However the patient has been noncompliant with her medications and has not been taking these. Patient may discuss her medications further and office on her follow-up appointment with Dr. Lu. We will sign off. Please reconsult if needed. Nurse practitioner note has been reviewed by physician. Signing provider agrees with the documented findings, assessment, and plan of care. Past Medical History Past Medical History: Atrial Fibrillation Additional Past Medical History / Comment(s): Psoriasis. USES CPAP. VARICOSE VEINS.uti, constipation since knee sx 06-16- had monique wilkest(pebble like bm yesterday History of Any Multi-Drug Resistant Organisms: None Reported Past Surgical History: Back Surgery, Joint Replacement, Orthopedic Surgery, Tubal Ligation Additional Past Surgical History / Comment(s): ORIF RT Arm; PLATE REMOVED. LUH KNEE SCOPES. SPINAL FUSION., right knee replacement, fusion L1/L2, right total hip Past Anesthesia/Blood Transfusion Reactions: Family History of Problems w/ Anesthesia, Motion Sickness, Postoperative Nausea & Vomiting (PONV) Additional Past Anesthesia/Blood Transfusion Reaction / Comment(s): SISTER WAS ON VENTILATOR AFTER SURGERY, SHE ALSO HAD LUPUS. Past Psychological History: Anxiety, Depression Smoking Status: Never smoker Past Alcohol Use History: None Reported Past Drug Use History: None Reported - Past Family History Brother(s) Family Medical History: Cancer Additional Family Medical History / Comment(s): 2 BROTHERS = CANCER Mother Additional Family Medical History / Comment(s): leaky heart valve Father Additional Family Medical History / Comment(s): Artery broke Medications and Allergies Home Medications Medication Instructions Recorded Confirmed Type No Known Home Medications 04/04/22 04/04/22 History Allergies Allergy/AdvReac Type Severity Reaction Status Date / Time duloxetine [From Cymbalta] Allergy Rash/Hives Verified 04/04/22 17:08 famotidine Allergy Rash/Hives Verified 04/04/22 17:08 Physical Exam Vitals: Vital Signs Temp Pulse Pulse Resp BP BP Pulse Ox 04/05/22 08:06 92 L 04/05/22 07:00 98.1 F 64 17 118/56 93 L 04/05/22 03:00 97.8 F 85 16 135/75 95 04/04/22 19:59 97.7 F 87 18 133/64 94 L 04/04/22 16:33 97.8 F 82 18 130/71 91 L 04/04/22 16:08 72 18 126/43 94 L Intake and Output 04/04/22 04/05/22 04/05/22 22:59 06:59 14:59 Other: # Voids 1 1 Weight 122.47 kg Results 04/05/22 05:46 04/05/22 05:46 Cardiac Enzymes 04/04/22 04/04/22 04/04/22 Range/Units 12:04 12:04 15:04 AST 39 H (14-36) U/L Troponin I <0.012 <0.012 (0.000-0.034) ng/mL 04/04/22 04/05/22 Range/Units 17:17 05:46 AST 44 H (14-36) U/L Troponin I <0.012 (0.000-0.034) ng/mL Coagulation 04/04/22 Range/Units 12:04 PT 9.7 (9.0-12.0) sec APTT 26.5 (22.0-30.0) sec Lipids 04/05/22 Range/Units 05:46 Triglycerides 75.60 (0.00-149.00) mg/dL Cholesterol 220.00 H (0.00-200.00) mg/dL HDL Cholesterol 62.80 H (40.00-60.00) mg/dL Cholesterol/HDL Ratio 3.50 Ratio CBC 04/04/22 04/05/22 Range/Units 12:04 05:46 WBC 7.8 6.48 (3.8-10.6) k/uL RBC 5.10 4.47 (3.80-5.40) m/uL Hgb 16.6 H 13.5 (11.4-16.0) gm/dL Hct 49.6 H 42.3 (34.0-46.0) % Plt Count 235 236 (150-450) k/uL Comprehensive Metabolic Panel 04/04/22 04/05/22 Range/Units 12: 05:46 Sodium 139 142 (137-145) mmol/L Potassium 4.3 3.7 (3.5-5.1) mmol/L Chloride 104 108 (98-107) mmol/L Carbon Dioxide 25 25.5 (22-30) mmol/L BUN 19 H 11.1 (7-17) mg/dL Creatinine 0.75 0.7 (0.52-1.04) mg/dL Glucose 142 H 99 (74-99) mg/dL Calcium 9.6 9.0 (8.4-10.2) mg/dL AST 39 H 44 H (14-36) U/L ALT 22 40 (4-34) U/L Alkaline Phosphatase 109 106 (38-126) U/L Total Protein 8.2 6.2 (6.3-8.2) g/dL Albumin 4.6 3.8 (3.5-5.0) g/dL Current Medications Generic Name Dose Route Start Last Admin Trade Name Freq PRN Reason Stop Dose Admin Acetaminophen 650 mg 04/04/22 19:34 04/04/22 19:42 Acetaminophen Tab 325 Mg Tab PO 650 mg Q6HR PRN Administration Fever and/ or Pain Heparin Sodium (Porcine) 5,000 unit 04/04/22 16:00 04/05/22 07:33 Heparin Sodium,Porcine/Pf 5,000 Unit/0.5 Ml Syringe SQ 5,000 unit Q8HR MECCA Administration Sodium Chloride 1,000 mls @ 75 mls/hr 04/04/22 16:00 04/05/22 06:32 Saline 0.9% IV 75 mls/hr .[id number] MECCA Administration Metoclopramide HCl 10 mg 04/04/22 18:14 04/04/22 19:21 Metoclopramide 5 Mg/Ml 2 Ml Vial IVP 10 mg Q6HR PRN Administration Nausea Morphine Sulfate 4 mg 04/04/22 15:58 04/04/22 17:46 Morphine Sulfate 4 Mg/Ml Syringe IV 4 mg Q4HR PRN Administration Severe Pain Nitroglycerin 0.4 mg 04/04/22 14:29 Nitroglycerin Sl Tabs 0.4 Mg Tab SUBLINGUAL Q5M PRN Chest Pain Ondansetron HCl 4 mg 04/04/22 17:32 Ondansetron 4 Mg/2 Ml Vial IVP Q8HR PRN Nausea And Vomiting Sodium Chloride 10 ml 04/04/22 21:00 04/05/22 07:33 Sodium Chloride 0.9% Flush 10 Ml Syringe IV 10 ml BID MECCA Administration Intake and Output 04/04/22 04/05/22 04/05/22 22:59 06:59 14:59 Other: # Voids 1 1 Weight 122.47 kg 04/05/22 05:46 04/05/22 05:46
--- NOTE | 2022-04-05 12:22 | P.GSCN ---
History of Present Illness Consult date: 04/05/22 History of present illness: CHIEF COMPLAINT: Chest pain HISTORY OF PRESENT ILLNESS: This is a 76-year-old female who presented to hospital with complaints of chest pain after eating meatballs around 9 PM last night. Patient reports that she went to bed and started having epigastric and chest discomfort around midnight. She took baby baking soda and Tums with no improvement. Around 5 AM the pain became very severe she was rating it 10 out of 10 with nausea and she was sweaty. She presented to the hospital with complaints of initially chest pain. Her troponins were negative. She was seen by cardiology no evidence of acute coronary artery disease. They've ordered an echocardiogram. Patient reports improvement in her pain. No further nausea. She did have some right upper quadrant abdominal pain yesterday a.m. this morning. Abdominal ultrasound report states correlate for cholecystitis. There may be sludge. Difficult to exclude a luminal mass, dilated common bile duct. Also noted borderline wall thickness with multiple stones and possible pericolic gutter fluid. Positive Worthy sign. Patient reports that she's had 3 episodes of similar pain. Past surgical history includes a tubal ligation. She does have a cardiac history of atrial fibrillation and had been noncompliant with anticoagulation. She is currently off of anticoagulation. Followed by cardiology. Denies any fever or chills. Patient seen and examined with Dr. anthony PAST MEDICAL HISTORY: A.fib PAST SURGICAL HISTORY: Tubal ligation, spinal fusion MEDICATIONS: See list. ALLERGIES: See list. SOCIAL HISTORY: No illicit drug use. REVIEW OF SYSTEMS: CONSTITUTIONAL: Denies fever or chills. HEENT: Denies blurred vision, vision changes, or eye pain. Denies hemoptysis CARDIOVASCULAR: Denies chest pain or pressure. RESPIRATORY: No shortness of breath. GASTROINTESTINAL: See HPI for pertinent findings HEMATOLOGIC: Denies bleeding disorders. GENITOURINARY: Denies any blood in urine or increased urinary frequency. SKIN: Denies pruitis. Denies rash. PHYSICAL EXAM: VITAL SIGNS: Reviewed GENERAL: Well-developed in no acute distress. HEENT: No sclera icterus. Extraocular movements grossly intact. Moist buccal mucosa. Head is atraumatic, normocephalic. No nasal drainage. ABDOMEN: Soft. Nondistended. Patient did have right upper quadrant tenderness this morning. Reevaluation with Dr. anthony shows improvement in her tenderness. NEUROLOGIC: Alert and oriented. Cranial nerves II through XII grossly intact. LABORATORY DATA: WBC 6.48 HGB13.5 platelets 236 Sodium 142 potassium is 3.7 creatinine 0.7 Troponins negative 3 IMAGING: Gallbladder ultrasound correlate for cholecystitis. There may be sludge. Difficult to exclude a luminal mass, dilated common bile duct. Also noted borderline wall thickness with multiple stones and possible pericolic gutter fluid. Positive Worthy sign. There may be Underlying hepatic steatosis, hepatocellular disease. ASSESSMENT: 1. Chronic cholecystitis PLAN: -Recommend laparoscopic cholecystectomy outpatient on 04/08/2022 -Patient can be discharged from surgical standpoint -Recommend low-fat diet Thank you for this consultation Physician Product Safety Associate note has been reviewed by physician. Signing provider agrees with the documented findings, assessment, and plan of care. Past Medical History Past Medical History: Atrial Fibrillation Additional Past Medical History / Comment(s): Psoriasis. USES CPAP. VARICOSE VEINS.uti, constipation since knee sx 06-16-17 had monique amt(pebble like bm yesterday History of Any Multi-Drug Resistant Organisms: None Reported Past Surgical History: Back Surgery, Joint Replacement, Orthopedic Surgery, Tubal Ligation Additional Past Surgical History / Comment(s): ORIF RT Arm; PLATE REMOVED. LUH KNEE SCOPES. SPINAL FUSION., right knee replacement, fusion L1/L2, right total hip Past Anesthesia/Blood Transfusion Reactions: Family History of Problems w/ Anesthesia, Motion Sickness, Postoperative Nausea & Vomiting (PONV) Additional Past Anesthesia/Blood Transfusion Reaction / Comm: SISTER WAS ON VENTILATOR AFTER SURGERY, SHE ALSO HAD LUPUS. Smoking Status: Never smoker - Past Family History Brother(s) Family Medical History: Cancer Additional Family Medical History / Comment(s): 2 BROTHERS = CANCER Mother Additional Family Medical History / Comment(s): leaky heart valve Father Additional Family Medical History / Comment(s): Artery broke Medications and Allergies Home Medications Medication Instructions Recorded Confirmed Type No Known Home Medications 04/04/22 04/04/22 History Allergies Allergy/AdvReac Type Severity Reaction Status Date / Time duloxetine [From Cymbalta] Allergy Rash/Hives Verified 04/04/22 17:08 famotidine Allergy Rash/Hives Verified 04/04/22 17:08 Surgical - Exam Vital Signs Temp Pulse Resp BP Pulse Ox 98.2 F 70 18 182/82 96 04/04/22 11:34 04/04/22 11:34 04/04/22 11:34 04/04/22 11:34 04/04/22 11:34 Results - Labs 04/05/22 05:46 04/05/22 05:46 Abnormal Lab Results - Last 24 Hours (Table) 04/04/22 04/04/22 04/04/22 Range/Units 12:04 12:04 12:04 Hgb 16.6 H (11.4-16.0) gm/dL Hct 49.6 H (34.0-46.0) % Lymphocytes # 0.7 L (1.0-4.8) k/uL D-Dimer 1.19 H (<0.60) mg/L FEU BUN 19 H (7-17) mg/dL Glucose 142 H (74-99) mg/dL AST 39 H (14-36) U/L Diabetes panel 04/04/22 Range/Units 12:04 Sodium 139 (137-145) mmol/L Potassium 4.3 (3.5-5.1) mmol/L Chloride 104 (98-107) mmol/L Carbon Dioxide 25 (22-30) mmol/L BUN 19 H (7-17) mg/dL Creatinine 0.75 (0.52-1.04) mg/dL Glucose 142 H (74-99) mg/dL Calcium 9.6 (8.4-10.2) mg/dL AST 39 H (14-36) U/L ALT 22 (4-34) U/L Alkaline Phosphatase 109 (38-126) U/L Total Protein 8.2 (6.3-8.2) g/dL Albumin 4.6 (3.5-5.0) g/dL Calcium panel 04/04/22 Range/Units 12:04 Calcium 9.6 (8.4-10.2) mg/dL Albumin 4.6 (3.5-5.0) g/dL Pituitary panel 04/04/22 Range/Units 12:04 Sodium 139 (137-145) mmol/L Potassium 4.3 (3.5-5.1) mmol/L Chloride 104 (98-107) mmol/L Carbon Dioxide 25 (22-30) mmol/L BUN 19 H (7-17) mg/dL Creatinine 0.75 (0.52-1.04) mg/dL Glucose 142 H (74-99) mg/dL Calcium 9.6 (8.4-10.2) mg/dL Adrenal panel 04/04/22 Range/Units 12:04 Sodium 139 (137-145) mmol/L Potassium 4.3 (3.5-5.1) mmol/L Chloride 104 (98-107) mmol/L Carbon Dioxide 25 (22-30) mmol/L BUN 19 H (7-17) mg/dL Creatinine 0.75 (0.52-1.04) mg/dL Glucose 142 H (74-99) mg/dL Calcium 9.6 (8.4-10.2) mg/dL Total Bilirubin 0.8 (0.2-1.3) mg/dL AST 39 H (14-36) U/L ALT 22 (4-34) U/L Alkaline Phosphatase 109 (38-126) U/L Total Protein 8.2 (6.3-8.2) g/dL Albumin 4.6 (3.5-5.0) g/dL
--- NOTE | 2022-04-05 12:58 | P.DS ---
Providers Date of admission: 04/04/22 14:29 Expected date of discharge: 04/05/22 Attending physician: Jermaine Alegre MD Consults: 04/04/22 15:30 Consult Physician Routine Consulting Provider: Kristopher Underwood Consult Reason/Comments: Distended gallbladder with prominent gallbladder wall, r/o cholecystitis Do you want consulting provider notified?: Yes Primary care physician: Stated None Hospital Course: Discharge Diagnosis: Chest pain, acute coronary event ruled out. Patient was started on atorvastatin secondary to elevated lipid profile and instructed she will need to follow up outpatient with Dr. Lu to further discuss being placed back on additional cardiac medications in which patient reports she stopped taking approximately 8 months ago. Cholecystitis, general surgery reports chronic and recommending outpatient follow-up in their office next week to schedule outpatient cholecystectomy. Patient recommended to follow low-fat heart healthy diet. History of atrial fibrillation, recommend outpatient follow-up with Dr. Lu to further discuss being placed back on cardiac medications. -No longer on anticoagulation. Patient reports there was some difficulties with her insurance and she took herself off of anticoagulant as she was unable to get her labs drawn for the warfarin as she was supposed to. -Currently sinus mechanism Hyperlipidemia, started on atorvastatin 40 mg daily. Recommended following heart healthy and low-fat diet. Nondisplaced left lateral rib fractures, fourth through seventh. Fractures of indeterminate age, patient asymptomatic denies having any falls or recent injuries. Denies any previous MVAs within the last 10 years. Elevated d-dimer, CTA negative for pulmonary emboli Hospital Course: Patient is a very pleasant 76-year-old female with a past medical history of atrial fibrillation not on anticoagulation (stopped taking approximately 8 months ago). She presented to the emergency department with a chief complaint of chest pain. Patient reports pain to midsternal chest pain that she described as a pressure accompanied by diaphoresis, nausea, and vomiting as well as mild shortness of breath. Patient reports this began initially around 12 AM and awoken her from sleep. Patient reports she went and took a teaspoon of baking soda and water in hopes this would provide her some relief. Patient reports she went back to bed and this pain progressively worsened and around 5 AM she states this pain was excruciating and this is when she became very diaphoretic and nauseous and began vomiting. Patient states she has never felt anything like this in the past. She describes this pain as an intense, excruciating pressure. Patient states this pressure has significantly improved since arriving to the hospital and currently reports mild pain 3-4 out of 10. Patient denies any recent fevers, chills, palpitations, cough or congestion, or experiencing any numbness/tingling/weakness/swelling in her extremities. She underwent full evaluation in the emergency department. EKG was completed showing normal sinus rhythm at 70 bpm with no noted T wave or ST abnormality showing no signs of acute ischemia. Chest x-ray revealing mild cardiomegaly with continued increased interstitial density possibly chronic. CTA chest negative for pulmonary emboli with age indeterminate nondisplaced left lateral fourth through seventh rib fractures, mildly distended gallbladder with prominent gallbladder wall. CBC unremarkable with the exception of elevated hemoglobin of 16.6 and hematocrit of 49.6. D-dimer was elevated at 1.19. CMP revealing a slightly elevated AST of 39 otherwise normal findings. Troponin negative at less than 0.012. Patient admitted under our services with consultation to cardiology and general surgery. She was monitored overnight. Troponins were trended and all negative at less than 0.0123 draws. Lipid profile elevated with triglycerides of 220 and cholesterol of 142.1. Cardiology evaluated ruling out an acute coronary event and recommending patient follow up outpatient with Dr. Lu to further discuss being placed back on her cardiac medications. Gallbladder ultrasound completed positive for cholecystitis with possible tumefactive sludge, unable to exclude luminal mass, dilated common bile duct with possible underlying hepatic steatosis. This morning patient is free from any pain, nausea, or vomiting and is tolerating a low-fat diet. General surgery evaluating recommending patient follow up outpatient in their office next week to schedule cholecystectomy. Patient is medically stable. Morning labs reviewed and unremarkable and vital signs stable. Patient stable for discharge home and recommended to follow up outpatient with PCP in 1-2 days and cardiology and gastroenterology within 1 week.. Physical exam: Vital signs reviewed and stable. General: Nontoxic, no distress and appears stated age. Obese. Derm: Skin warm and dry, normal coloration for ethnicity. Head: Atraumatic, normocephalic and symmetric. Eyes: EOMs intact, no lid lag, and anicteric sclera Mouth: no lip lesions, mucus membranes moist Cardiovascular: regular rate and rhythm with normal S1S2, no murmur, positive posterior tibial pulses bilaterally, and cap refill < 2 seconds. Lungs: Respirations even, regular, and unlabored on room air. Lungs CTA bilaterally, no rhonchi, no rales, no wheezing, and no accessory muscle usage. Abdominal: soft, no tenderness this morning upon palpation. No guarding and no appreciable organomegaly Ext: ROM intact. No gross muscle atrophy, no edema, no contractures Neuro: Speech clear, face symmetrical and CN II-XII grossly intact with no noted focal neuro deficits Psych: Alert and oriented to person, place, time, and situation. Appropriate and pleasant affect. A total of 36 minutes of time were spent preparing this complex discharge summary. Pt was discharged on 04/05/22 at 12:17 PM. I reviewed the documentation as provided by the MAX above, who is the original author of this note. I agree with the documented assessment and plan, with the following changes: none Patient Condition at Discharge: Stable Plan - Discharge Summary New Discharge Prescriptions: New Atorvastatin [Lipitor] 40 mg PO DAILY 30 Days #30 tablet Discharge Medication List Atorvastatin [Lipitor] 40 mg PO DAILY 30 Days #30 tablet 04/05/22 [Rx] Follow up Appointment(s)/Referral(s): Ashley Lu MD [STAFF PHYSICIAN] - 1 Week Marguerite Goff MD [STAFF PHYSICIAN] - 1 Week Kristopher Underwood MD [STAFF PHYSICIAN] - 04/08/22 Patient Instructions/Handouts: Laparoscopic Cholecystectomy (DC) Activity/Diet/Wound Care/Special Instructions: Activity: As tolerated. Take breaks as needed. Diet: Follow low-fat and heart healthy diet Special Instructions: It is very important to follow up outpatient with general surgeon, Dr. Underwood to schedule cholecystectomy. Also recommend following up outpatient with Dr. Lu to discuss being placed back on further cardiac medications, you have been started on atorvastatin secondary to elevated cholesterol profile.. Thank you for allowing us to participate in your care, it was truly a pleasure having you for our patient!!! Discharge Disposition: HOME SELF-CARE
== END 2022-04-05 13:25 | disposition home or self-care (01) ==
LOC: EC 11:25 → 6NMEDSUR 14:29
PROVIDERS: ADMIT Internal Medicine; ATTEND Internal Medicine
DX: K81.1 Chronic cholecystitis (principal); K82.8 Other specified diseases of gallbladder; S22.42XA Multiple fractures of ribs, left side, initial encounter for closed fracture; I48.0 Paroxysmal atrial fibrillation; I10 Essential (primary) hypertension; E78.5 Hyperlipidemia, unspecified; E66.9 Obesity, unspecified; Z68.42 Body mass index [BMI] 45.0-49.9, adult; F32.A Depression, unspecified; F41.9 Anxiety disorder, unspecified; Z98.1 Arthrodesis status; Z96.651 Presence of right artificial knee joint; Z82.69 Family history of other diseases of the musculoskeletal system and connective tissue; Z91.14 Patient's other noncompliance with medication regimen; I83.90 Asymptomatic varicose veins of unspecified lower extremity; Z87.440 Personal history of urinary (tract) infections; Z98.51 Tubal ligation status; Z79.01 Long term (current) use of anticoagulants; Z80.9 Family history of malignant neoplasm, unspecified; Z82.49 Family history of ischemic heart disease and other diseases of the circulatory system; Z88.8 Allergy status to other drugs, medicaments and biological substances
CPT/HCPCS: 96361; 96372 ×2; 96375; 96374; 99285; 36415; 94760; 93005; 93306; 85379; 80061; 80053 ×2; 83735 ×2; 84484; 85025; 85027; 85610; 85730; 71046; 76705; 71275; G0378 ×2; J2270; J2765; J2405; Q9967; J1644 ×2

== ENCOUNTER 2022-04-08 08:07 | Day surgery (SDC) | payer MEDICARE ==
[~2022-04-08 08:07] MED LIST changes: -DEXAMETHASONE SOD PHOSPHATE 4 MG/ML 1 ML VIAL IV ONE; +HEPARIN SODIUM,PORCINE/PF 5,000 UNIT/0.5 ML SYRINGE SQ PRN; -MELOXICAM 7.5 MG TAB PO PRN; -MIDAZOLAM 2 MG/2 ML VIAL IV PRN; -ONDANSETRON 4 MG/2 ML VIAL IVP ONE; -ROPIVACAINE/EPI/CLONIDINE/KET 50 ML SYRINGE MISCELLANE PRN; -TRANEXAMIC ACID 1,000 MG in SODIUM CHLORIDE 0.9% 100 ML IVPB PRN; +ceFAZolin 3 GM in SODIUM CHLORIDE 0.9% 100 ML IVPB PRN
[2022-04-08] MEDS ORDERED: ONDANSETRON 4 MG/2 ML VIAL ONE (08:42)
[2022-04-08] MEDS ORDERED: LIDOCAINE 1% (10MG/ML) FOR IV START INTRADERMA ONE (08:51)
[2022-04-08] MEDS ORDERED: LACTATED RINGERS 1,000 ML IV ONE ×2 (08:51→11:48)
[2022-04-08] MEDS ORDERED: DEXAMETHASONE SOD PHOSPHATE 4 MG/ML 1 ML VIAL IV ONE (08:52)
[2022-04-08] MEDS ORDERED: ONDANSETRON 4 MG/2 ML VIAL IVP ONE ×2 (08:53→11:37)
--- NOTE | 2022-04-08 10:08 | P.GSHP ---
History of Present Illness H&P Date: 04/08/22 Chief Complaint: Cholelithiasis This a 76-year-old female with complaints of right upper quadrant pain. Patient was found have cholelithiasis. She presents today for laparoscopic cholecystectomy. Past Medical History Past Medical History: Atrial Fibrillation Additional Past Medical History / Comment(s): Psoriasis. USES CPAP. VARICOSE VEINS.uti, constipation since knee sx 06-16- had monique amt(pebble like bm yesterday History of Any Multi-Drug Resistant Organisms: None Reported Past Surgical History: Back Surgery, Joint Replacement, Orthopedic Surgery, Tubal Ligation Additional Past Surgical History / Comment(s): ORIF RT Arm; PLATE REMOVED. LUH KNEE SCOPES. SPINAL FUSION., right knee replacement, fusion L1/L2, right total hip Past Anesthesia/Blood Transfusion Reactions: Family History of Problems w/ Anesthesia, Motion Sickness, Postoperative Nausea & Vomiting (PONV) Additional Past Anesthesia/Blood Transfusion Reaction / Comment(s): SISTER WAS ON VENTILATOR AFTER SURGERY, SHE ALSO HAD LUPUS. Smoking Status: Never smoker - Past Family History Brother(s) Family Medical History: Cancer Additional Family Medical History / Comment(s): 2 BROTHERS = CANCER Mother Additional Family Medical History / Comment(s): leaky heart valve Father Additional Family Medical History / Comment(s): Artery broke Medications and Allergies Home Medications Medication Instructions Recorded Confirmed Type No Known Home Medications 04/08/22 04/08/22 History Allergies Allergy/AdvReac Type Severity Reaction Status Date / Time duloxetine [From Cymbalta] Allergy Rash/Hives Verified 04/08/22 08:54 famotidine Allergy Rash/Hives Verified 04/08/22 08:54 Surgical - Exam Vital Signs Temp Pulse Resp BP Pulse Ox 97.4 F L 78 18 177/71 96 04/08/22 08:33 04/08/22 08:33 04/08/22 08:33 04/08/22 08:33 04/08/22 08:33 - General well developed, well nourished, no distress - Eyes PERRL - ENT normal pinna - Neck no masses - Respiratory normal expansion - Cardiovascular Rhythm: regular - Abdomen Abdomen: soft, non tender Assessment and Plan Assessment: Cholelithiasis. We'll perform laparoscopic cholecystectomy
[2022-04-08] MEDS ORDERED: LIDOCAINE 2% INJ 20 MG/ML (2 ML VIAL) ONE (10:16)
[2022-04-08] MEDS ORDERED: ROCURONIUM 10 MG/ML (5 ML VIAL) IV ONE (10:16)
[2022-04-08] MEDS ORDERED: PROPOFOL 10 MG/ML 20 ML VIAL IV ONE (10:16)
[2022-04-08] MEDS ORDERED: LIDOCAINE 4% LTA KIT (4 ML) TOPICAL ONE (10:16)
[2022-04-08] MEDS ORDERED: SUCCINYLCHOLINE CHLORIDE 200 MG/10 ML VIAL IV ONE (10:16)
[2022-04-08] MEDS ORDERED: KETOROLAC 15 MG/ML 1 ML VIAL ONE (10:16)
[2022-04-08] MEDS ORDERED: MIDAZOLAM 2 MG/2 ML VIAL ONE (10:16)
[2022-04-08] MEDS ORDERED: NEOSTIGMINE 1 MG/ML 10 ML VIAL ONE (10:16)
[2022-04-08] MEDS ORDERED: fentaNYL (PF) 50 MCG/ML 2 ML AMP ONE (10:16)
[2022-04-08] MEDS ORDERED: GLYCOPYRROLATE 0.2 MG/ML 2 ML VIAL ONE (10:16)
[2022-04-08] MEDS ORDERED: BUPIVACAIN-EPI 0.25%-1:200,000 30 ML VIAL SQ ONE (10:43)
--- NOTE | 2022-04-08 11:20 | P.OP ---
Date of Procedure: 04/08/22 Preoperative Diagnosis: Cholecystitis Cholelithiasis Postoperative Diagnosis: Cholecystitis Cholelithiasis Procedure(s) Performed: Laparoscopic cholecystectomy Anesthesia: ISABELLE Surgeon: Kristopher Underwood Pathology: other (Gallbladder) Condition: stable Disposition: PACU Description of Procedure: The patient was placed on the operating table. The patient received a general endotracheal tube anesthesia. The patients abdomen was prepped and draped in the usual sterile fashion. Through an infraumbilical stab incision, the fascia of the anterior abdominal wall was grasped with a pair of Kochers and then the Veress needle was placed in the peritoneal cavity. Position of the Veress needle was confirmed with positive drop test. The abdomen was then insufflated. After adequate insufflation, the 10 mm trocar was placed in the peritoneal cavity. Following this the laparoscope was placed in the peritoneal cavity. The patient was placed in the head-up, right side up position and then a 5 mm trocar was placed in the right lateral and right subcostal position under direct visualization. A 8 mm trocar was placed in the epigastric position. The gallbladder was grasped in the fundus and infundibulum. Traction on the gallbladder was placed in the lateral and the cephalad positions. The triangle of Calot was visualized.. The cystic duct was bluntly dissected until the union of the cystic duct and common bile duct was seen. A critical view of safety was achieved. The cystic duct was then divided and sealed with the Harmonic scissors. A PDS Endoloop was then placed throughout the cystic duct stump. The cystic artery divided and sealed with the Harmonic scissors. The gallbladder was then removed from the liver bed using Harmonic scissors. The gallbladder was then extracted through the epigastric port site. Operative field was checked for any bleeding spots and Harmonic scissors was used to coagulate the liver bed. The abdomen was irrigated. The trocars were removed. The skin was closed using interrupted 3-0 Vicryl suture. Dermabond dressing were applied. The patient tolerated the procedure well.
[2022-04-08 11:25] VITALS: TEMP 96.9
[2022-04-08] MEDS ORDERED: HYDROmorphone 0.5 MG/0.5 ML SYRINGE IVP ONE (11:36)
[2022-04-08 12:15] VITALS: RESP 18
[2022-04-08 13:04] VITALS: BP 147/78; PULSE 58
== END 2022-04-08 13:23 | disposition home or self-care (01) ==
LOC: OR 08:07
PROVIDERS: ATTEND Surgery
DX: K80.12 Calculus of gallbladder with acute and chronic cholecystitis without obstruction (principal); Z88.8 Allergy status to other drugs, medicaments and biological substances; I48.91 Unspecified atrial fibrillation; E78.5 Hyperlipidemia, unspecified; G47.33 Obstructive sleep apnea (adult) (pediatric); L40.9 Psoriasis, unspecified; Z79.899 Other long term (current) drug therapy; Z80.1 Family history of malignant neoplasm of trachea, bronchus and lung; Z98.51 Tubal ligation status; Z82.49 Family history of ischemic heart disease and other diseases of the circulatory system
CPT/HCPCS: 88304; 47562; J2250; J0330; J1100; J2710; J0690; J2405; J3010; J1885; J2704; J1170; J1644; J2001

== ENCOUNTER → 2024-01-27 | Day surgery (SDC) | payer MEDICARE ==
[2024-01-22 15:58] VITALS: BMI 49.6
[~2024-01-27] MED LIST changes: -ACETAMINOPHEN TAB 500 MG TAB PO PRN; -HEPARIN SODIUM,PORCINE/PF 5,000 UNIT/0.5 ML SYRINGE SQ PRN; +LIDOCAINE 1% (10MG/ML) FOR IV START INTRADERMA PRN; +ONDANSETRON 4 MG/2 ML VIAL ONE; +PROPOFOL 10 MG/ML 20 ML VIAL IV ONE; -ceFAZolin 3 GM in SODIUM CHLORIDE 0.9% 100 ML IVPB PRN
[2024-01-27] MEDS: LACTATED RINGERS 1,000 ML IV SCH (10:37)
[2024-01-27] MEDS: ONDANSETRON 4 MG/2 ML VIAL IVP ONE (10:39)
[2024-01-27 10:48] VITALS: RESP 16; TEMP 97.2
--- NOTE | 2024-01-27 10:55 | P.GSHP ---
History of Present Illness H&P Date: 01/27/24 Chief Complaint: Colon cancer screening 78-year-old female here for colonoscopy. Last colonoscopy 10 years ago. No bowel complaints. No family history of colon cancer. Mild right lower quadrant abdominal pain. Past Medical History Past Medical History: Atrial Fibrillation, Fibromyalgia, GERD/Reflux, Hyperlipidemia, Hypertension, Osteoarthritis (OA), Sleep Apnea/CPAP/BIPAP Additional Past Medical History / Comment(s): Psoriasis. VARICOSE VEINS.uti, constipation since knee sx 06-16-17, resolved History of Any Multi-Drug Resistant Organisms: None Reported Past Surgical History: Back Surgery, Cholecystectomy, Joint Replacement, Orthopedic Surgery, Tubal Ligation Additional Past Surgical History / Comment(s): ORIF RT Arm; PLATE REMOVED. LUH KNEE SCOPES. SPINAL FUSION., right knee replacement, fusion L1/L2, right total hip Past Anesthesia/Blood Transfusion Reactions: Family History of Problems w/ Anesthesia, Motion Sickness, Postoperative Nausea & Vomiting (PONV) Additional Past Anesthesia/Blood Transfusion Reaction / Comment(s): SISTER WAS ON VENTILATOR AFTER SURGERY, SHE ALSO HAD LUPUS. she has vomiting. no blood transfusion Smoking Status: Never smoker - Past Family History Brother(s) Family Medical History: Cancer Additional Family Medical History / Comment(s): 2 BROTHERS = CANCER, Mother Additional Family Medical History / Comment(s): leaky heart valve Father Additional Family Medical History / Comment(s): Artery broke Sister(s) Additional Family Medical History / Comment(s): lupus Medications and Allergies Home Medications Medication Instructions Recorded Confirmed Type Acetaminophen Tab [Tylenol] 650 mg PO Q6H #30 tab 04/08/22 01/27/24 Rx Docusate [Colace] 100 mg PO BID #20 capsule 04/08/22 01/27/24 Rx Ibuprofen [Motrin] 600 mg PO Q6HR PRN #40 tab 04/08/22 01/22/24 Rx Apixaban [Eliquis] 5 mg PO DAILY 01/22/24 01/27/24 History Cholecalciferol [Vitamin D3 (25 50 mcg PO DAILY 01/22/24 01/27/24 History Mcg = 1000 Iu)] Famotidine [Pepcid AC] 10 mg PO DAILY PRN 01/22/24 01/27/24 History Folic Acid 1 mg PO DAILY 01/22/24 01/22/24 History Losartan Potassium 50 mg PO DAILY 01/22/24 01/27/24 History Multivitamin [Multivitamins Adult 1 each PO DAILY 01/22/24 01/22/24 History Gummies] Rosuvastatin Calcium 5 mg PO DAILY 01/22/24 01/27/24 History Vitamin B Complex 1 each PO DAILY 01/22/24 01/22/24 History buPROPion SR [Wellbutrin SR] 150 mg PO DAILY 01/22/24 01/27/24 History metHOTREXate sodium [Methotrexate] 2.5 mg PO DIRECTED 01/22/24 01/27/24 History Allergies Allergy/AdvReac Type Severity Reaction Status Date / Time duloxetine [From Cymbalta] Allergy Rash/Hives Verified 01/27/24 10:21 famotidine Allergy Rash/Hives Verified 01/27/24 10:21 Surgical - Exam Vital Signs Temp Pulse Resp BP Pulse Ox 97.2 F L 89 16 161/66 95 01/27/24 10:28 01/27/24 10:28 01/27/24 10:28 01/27/24 10:28 01/27/24 10:28 Physical exam: General: Well-developed, well-nourished HEENT: Normocephalic, sclerae nonicteric Abdomen: Nontender, nondistended Extremities: No edema Neuro: Alert and oriented Assessment and Plan (1) Colon cancer screening Narrative/Plan: Will proceed with colonoscopy at this time. Current Visit: Yes Status: Acute Code(s): Z12.11 - ENCOUNTER FOR SCREENING FOR MALIGNANT NEOPLASM OF COLON SNOMED Code(s): 268687435
--- NOTE | 2024-01-27 11:05 | P.PCN ---
Date of Procedure: 01/27/24 Procedure(s) Performed: PREOPERATIVE DIAGNOSIS: Colon cancer screening POSTOPERATIVE DIAGNOSIS: Transverse colon polyp, diverticulosis PROCEDURE: Colonoscopy with snare polypectomy ANESTHESIA: MAC SURGEON: Lauri Paez M.D. SPECIMENS: Polyp ENDOSCOPIC PROCEDURE: The patient was placed on the endoscopy table in the left decubitus position. The Olympus colonoscope was inserted into the anus and passed under direct visualization to the base of the cecum. The appendiceal orifice was visualized. From that point the scope was slowly withdrawn inspecting all surfaces carefully. There were no neoplastic inflammatory or polypoid lesions throughout the cecum and ascending colon. In the transverse colon a small polyp was seen and removed using the snare with cautery technique. The remainder of the transverse descending sigmoid and rectum was normal. There was moderate left-sided diverticulosis. Digital rectal examination was normal. The patient was taken to the recovery room in stable condition per anesthesia guidelines. RECOMMENDATIONS: Await biopsy results. Will contact patient with timing of next colonoscopy.
[2024-01-27 11:47] VITALS: BP 147/80; PULSE 73
== END ==
LOC: ORWHC2ENDO 09:55
PROVIDERS: ATTEND Surgery
DX: Z12.11 Encounter for screening for malignant neoplasm of colon (principal); K57.30 Diverticulosis of large intestine without perforation or abscess without bleeding; I48.91 Unspecified atrial fibrillation; I10 Essential (primary) hypertension; E78.5 Hyperlipidemia, unspecified; G47.33 Obstructive sleep apnea (adult) (pediatric); F41.9 Anxiety disorder, unspecified; F32.A Depression, unspecified; K21.9 Gastro-esophageal reflux disease without esophagitis; M79.7 Fibromyalgia; M19.90 Unspecified osteoarthritis, unspecified site; K63.5 Polyp of colon; Z79.01 Long term (current) use of anticoagulants; Z90.49 Acquired absence of other specified parts of digestive tract; Z98.51 Tubal ligation status; Z88.8 Allergy status to other drugs, medicaments and biological substances; Z79.899 Other long term (current) drug therapy
CPT/HCPCS: 88305; 45385; J2405; J2704